=== PATIENT | male | born 1960 | race Caucasian/White ===

== ENCOUNTER 2019-07-08 15:56 | Emergency (ER) | payer OTHER, SELFPAY ==
[2019-07-08 16:04] VITALS: BP 136/90; RESP 18; TEMP 36.9; O2SAT 97
--- NOTE | 2019-07-08 16:09 | ED.URI ---
HPI - URI/Sore Throat General Chief Complaint: Upper Respiratory Infection Stated Complaint: cough/sore throat Time Seen by Provider: 07/08/19 16:23 Source: patient and RN notes reviewed History of Present Illness HPI Narrative: Patient is a 58-year-old male that presents the urgent care with complaints of cough and sore throat for a week and a half. Patient states that the cough is sometimes productive but he is unsure of what color. Patient states he has been using cough and cold medications without relief. States that he does have rhinorrhea at times. Patient's main complaint is fatigue and states that he is not getting much sleep at night. States that his feels that he may be short of breath . However patient denies any shortness of breath. No other acute complaints. No acute distress noted. Patient denies any fever, nausea, vomiting, chest pain. Patient aware of the plan of care. Related Data Home Medications Medication Instructions Recorded Confirmed hydrochlorothiazide 25 mg PO DAILY 07/08/19 07/08/19 lisinopril 20 mg PO DAILY 07/08/19 07/08/19 meloxicam 15 mg PO DAILY 07/08/19 07/08/19 rosuvastatin 20 mg PO DAILY 07/08/19 07/08/19 Allergies Allergy/AdvReac Type Severity Reaction Status Date / Time No Known Allergies Allergy Verified 07/08/19 15:59 Review of Systems Review of Systems: Narrative: CONSTITUTIONAL: Denies fever, chills, or sweats. EYES: Denies visual changes, redness, or discharge. ENT: Reports of intermittent sore throat and rhinorrhea CARDIOVASCULAR: Denies chest pain, palpitations, or edema. RESPIRATORY: Reports of nonproductive cough without dyspnea GASTROINTESTINAL: Denies abdominal pain, nausea, vomiting, or diarrhea. GENITOURINARY: Denies dysuria or hematuria. SKIN: Denies rash or itching. MUSCULOSKELETAL: Denies back pain, joint pain, or myalgia. NEUROLOGIC: Denies headache, numbness, or weakness. All other systems reviewed are negative, except as documented in HPI. [facility] Family History Family History (Updated 12/02/15 @ 23:21 by DOCTOR UNKNOWN) Mother Patient's mother is in good health Sibling Patient's brother is in good health Father Family history of malignant neoplasm, Onset Age: 49 Patient's father is , Onset Age: 49 Social History Social History Smoking status: Never smoker Alcohol intake: current Gender identity (if verbalized by the patient): Male Comments At the time of my signature, I reviewed and agree with the nursing past medical, surgical, social, and family history. There is no relevant family history pertinent to the patient complaint. Exam Narrative: Exam Narrative: GENERAL: This is a well-nourished, well-developed patient, in no apparent distress. HEAD: normocephalic, atraumatic. EYES: PERRL. Sclera clear/white. Vision is grossly intact. EARS: External ears normal, auditory canals clear and without drainage, TMs normal without perforation. Hearing grossly intact. NOSE: External nose normal with no obvious nasal discharge, nares without redness, no rhinorrhea. THROAT: Mucous membranes moist, posterior pharynx clear. Mild postnasal drainage NECK: Neck supple, non-tender without lymphadenopathy CARDIOVASCULAR: Regular rate and rhythm without murmurs, gallops, or rubs. RESPIRATORY: Clear to auscultation. Breath sounds equal bilaterally. No wheezes, rales, or rhonchi. SKIN: warm, intact with no suspicious lesions or rash, good texture and turgor. NEURO: awake, alert, and oriented to person, place and time. There were no obvious focal neurologic abnormalities. EXTREMITIES: No clubbing, cyanosis, or edema. Course Vital Signs Vital signs: Vital Signs Temperature 98.5 F 07/08/19 16:04 Respiratory Rate 18 07/08/19 16:04 Blood Pressure 136/90 07/08/19 16:04 Pulse Oximetry 97 07/08/19 16:04 Temperature 98.5 F 07/08/19 16:04 Respiratory Rate 18 07/08/19 16:04 Blood Pressure 136/90 07/08/19 16:0
== END 2019-07-08 16:30 | disposition home or self-care (01) ==
PROVIDERS: Emergency Provider Nurse Practitioner Family; PCP Internal Medicine
DX: R05 Cough (principal); E78.00 Pure hypercholesterolemia, unspecified; I10 Essential (primary) hypertension
CPT/HCPCS: 99213; G0463

== ENCOUNTER 2021-05-09 13:03 | Outpatient (CLI) | payer OTHER, SELFPAY ==
[2021-05-09 16:25] LABS: SARS-CoV-2 RNA PCR Positive (Negative)
== END 2021-05-09 13:04 | disposition home or self-care (01) ==
PROVIDERS: PCP Internal Medicine; Visit Provider Internal Medicine
DX: U07.1 COVID-19 (principal); R68.89 Other general symptoms and signs
CPT/HCPCS: C9803; U0003; U0005

== ENCOUNTER 2022-02-28 08:59 | Outpatient (CLI) | payer OTHER, SELFPAY ==
[2022-02-28 19:53] LABS: Hemoglobin A1C 6.4 % (<5.7)
[2022-02-28 19:54] LABS: Basophils Absolute Auto 0.1 K/mm3 (0.0-0.1); Basophils Percent Auto 0.7 % (0.2-1.2); Eosinophils Absolute Auto 0.1 K/mm3 (0-0.3); Eosinophils Percent Auto 1.5 % (0-4.4); Hematocrit 45.4 % (42.0-52.0); Hemoglobin 15.8 g/dL (14.0-18.0); Immature Granulocyte Absolute 0.02 K/mm3 (0.00-0.031); Immature Granulocyte Percent A 0.2 % (0-0.5); Lymphocytes Absolute Auto 2.33 K/mm3 (0.9-3.2); Lymphocytes Percent Auto 26.3 % (18.3-44.2); Mean Corpuscular HGB Conc 34.8 g/dl (32-36); Mean Corpuscular Hemoglobin 31.5 pg (26-34); Mean Corpuscular Volume 90.4 fl (80-100); Mean Platelet Volume 10.7 fl (7.4-10.4); Monocytes Absolute Auto 0.7 K/mm3 (0.1-0.6); Monocytes Percent Auto 8.1 % (2.6-8.5); Neutrophils Absolute Auto 5.6 K/mm3 (1.3-6.7); Neutrophils Percent Auto 63.2 % (45.5-73.1); Platelet Count Result 253 k/mm3 (150-375); Red Blood Count 5.02 M/mm3 (4.6-6.20); Red Cell Distribution Width 12.7 % (11.5-14.5); White Blood Count 8.9 K/mm3 (4.5-10.0)
[2022-02-28 20:16] LABS: Alanine Aminotransferase 28 U/L (6-50); Albumin Level 4.5 g/dL (3.5-5.1); Alkaline Phosphatase 107 U/L (38-126); Anion Gap 14 mmol/L (8-16); Aspartate Amino Transferase 24 U/L (17-59); Bilirubin,Total 0.5 mg/dL (0.2-1.3); Blood Urea Nitrogen 16 mg/dL (9-20); Calcium 9.4 mg/dL (8.4-10.2); Carbon Dioxide 24 mmol/L (22-30); Chloride 104 mmol/L (98-107); Cholesterol 205 mg/dL (0-200); Estimated Glomerular Filt Rate > 60; Glucose 136 mg/dL (65-110); HDL Direct 43 mg/dL; Potassium 4.7 mmol/L (3.4-5.0); Sodium 142 mmol/L (137-145); Triglycerides 235 mg/dL (<150)
[2022-02-28 20:29] LABS: LDL Cholesterol Direct 120 mg/dL
[2022-02-28 20:47] LABS: Prostate Specific Antigen 2.2 ng/mL (< OR = 4.0)
== END 2022-02-28 09:00 | disposition home or self-care (01) ==
LOC: ANHGOSHLAB 09:00
PROVIDERS: PCP Family Medicine; Visit Provider Family Medicine
DX: E66.9 Obesity, unspecified (principal); Z13.29 Encounter for screening for other suspected endocrine disorder; Z12.5 Encounter for screening for malignant neoplasm of prostate; R53.83 Other fatigue; Z13.228 Encounter for screening for other metabolic disorders
CPT/HCPCS: 36415; 80053; 80061; 83036; 84153; 84443; 85025; G0103

== ENCOUNTER 2022-10-02 15:22 | Emergency (ER) | payer OTHER, SELFPAY ==
--- NOTE | 2022-10-02 16:34 | PC.NURSE ---
LWBS, not triaged
== END 2022-10-02 16:34 | disposition left against medical advice (07) ==
LOC: ANHED 16:38
PROVIDERS: PCP Family Medicine
DX: Z53.21 Procedure and treatment not carried out due to patient leaving prior to being seen by health care provider (principal)
CPT/HCPCS: 99199

== ENCOUNTER 2022-10-03 13:11 | Emergency (ER) | payer OTHER, SELFPAY ==
--- NOTE | ~2022-10-03 | CT_ITS ---
EXAMINATION: CT abdomen pelvis wo con DATE: 10/03/2022 14:50 INDICATION: Right groin pain TECHNIQUE: Computed tomography (CT) of the abdomen and pelvis was performed without intravenous contr ast. Automated exposure control and iterative reconstruction technique were employed. The dose-length product was 1263.52 mGy-cm. COMPARISON: None FINDINGS: Lung bases are clear. Heart size is normal. No pericardial or pleural effusion. Small sliding-type hi atal hernia with change of prior Lala fundoplication. A few scattered small hepatic cysts the large st measuring 1.2 cm. Gallbladder, spleen, pancreas, left kidney and bilateral adrenal glands are norm al. 2.5 cm right renal cyst. No urolithiasis. Moderate diverticulosis with sigmoid colon predominance and without adjacent inflammatory stranding to suggest diverticulitis. Small bowel and appendix are normal. No inguinal hernia. Bladder is normal. Mild prostatomegaly measuring 5.3 x 4.1 cm. No free in traperitoneal gas or fluid. No pathologically enlarged abdominal or pelvic lymphadenopathy. Severe sp ondylosis at the lumbosacral junction. Bilateral hip osteoarthritis with mild to moderate nonuniform joint space narrowing and with subarticular cystic change along the rims of the bilateral acetabula. There are loose osteochondral bodies at the cotyloid fossa, right greater than left. IMPRESSION: 1. No inguinal hernia. 2. Diverticulosis. Reviewed, dictated and finalized at location B.
[2022-10-03 13:19] VITALS: BP 125/81; PULSE 74; RESP 16; TEMP 36.4; O2SAT 98
--- NOTE | 2022-10-03 15:09 | ED.GENADULT ---
HPI - General Adult General Chief complaint: Urogenital-Male Stated complaint: groin pain Time Seen by Provider: 10/03/22 13:35 Source: patient Mode of arrival: ambulatory Limitations: no limitations History of Present Illness HPI narrative: This is a 61-year-old male who presents to the ED with chief complaint of right groin pain x10 days. Patient states that he has had a sharp stabbing intermittent right groin pain that seems to occur at random. He points to the right upper thigh when I ask him the location. He states that he is an avid golfer and has noticed that sometimes when he takes a golf swing. He also notices it when he is walking. Denies any testicular pain, urinary symptoms, abdominal pain. He has not felt any bulges. Denies any nausea or vomiting. Related Data Home Medications Medication Instructions Recorded Confirmed bupropion HCl 150 mg 24 hr tablet, 150 mg PO DAILY 08/30/22 08/30/22 extended release hydrochlorothiazide 25 mg tablet 25 mg PO DAILY 08/30/22 08/30/22 Allergies Allergy/AdvReac Type Severity Reaction Status Date / Time No Known Allergies Allergy Verified 10/03/22 13:12 Review of Systems Review of Systems: CONSTITUTIONAL: Denies fever, chills, or sweats. EYES: Denies visual changes, redness, or discharge. ENT: Denies rhinorrhea, congestion, sore throat, or otalgia. CARDIOVASCULAR: Denies chest pain, palpitations, or edema. RESPIRATORY: Denies cough or dyspnea. GASTROINTESTINAL: Denies abdominal pain, nausea, vomiting, or diarrhea. GENITOURINARY: See HPI SKIN: Denies rash or itching. MUSCULOSKELETAL: Denies back pain, joint pain, or myalgia. NEUROLOGIC: Denies headache, numbness, dizziness, or weakness. PSYCHIATRIC: Denies anxiety or depression. [facility] Past Medical History Medical History Arthritis of both elbows Family History Family History Mother Patient's mother is in good health Sibling Patient's brother is in good health Father Family history of malignant neoplasm, Onset Age: 49 Patient's father is , Onset Age: 49 Social History Social History Smoking status: Never smoker Alcohol intake: current Substance use: never Substance use type: does not use Lack of Transportation: No Lack of Food: Never True Current Housing: I Have Housing Concerned About Future Housing: No Difficulty Paying Gas/Electric Bills: No Difficulty Paying for Meds: No Currently Unemployed: No Education: Bachelor's Degree Difficulty w/ Childcare or Family Care: No Living arrangements: with family Occupation/Education: occupation 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 HEAD: Normocephalic, atraumatic. EYES: PERRLA and EOMI. ENT: Nares clear, no rhinorrhea or epistaxis. Mucous membranes moist. Oropharynx without tonsillar hypertrophy exudate or other lesions. NECK: Supple. No adenopathy or masses. CHEST: No respiratory distress. Clear to auscultation. No wheezes rales or rhonchi HEART: Regular rate and rhythm. No murmur heard. Normal peripheral pulses. ABDOMEN: Soft, nontender, nondistended, normal active bowel sounds. : No inguinal hernias are palpated. No testicular swelling or tenderness. No overt skin changes throughout the groin. No tenderness throughout the groin. MSK: Normal range of motion. No edema. SKIN: Warm, dry, no rash. NEURO: Alert and oriented x3. No focal deficits. PSYCH: Normal mood and affect. Course Vital Signs Vital signs: Vital Signs Temperature 97.5 F L 10/03/22 13:19 Pul
[2022-10-03 15:23] VITALS: BP 124/80; PULSE 79; RESP 18; TEMP 37.1; O2SAT 100
== END 2022-10-03 15:25 | disposition home or self-care (01) ==
PROVIDERS: Emergency Provider Physician Assistant; PCP Family Medicine
DX: S39.011A Strain of muscle, fascia and tendon of abdomen, initial encounter (principal); M19.022 Primary osteoarthritis, left elbow; M19.021 Primary osteoarthritis, right elbow; X58.XXXA Exposure to other specified factors, initial encounter
CPT/HCPCS: 74176; 99284

== ENCOUNTER 2023-04-18 08:27 | Outpatient (CLI) | payer OTHER, SELFPAY ==
[2023-04-18 19:59] LABS: Basophils Absolute Auto 0.1 K/mm3 (0.0-0.1); Basophils Percent Auto 0.9 % (0.2-1.2); Eosinophils Absolute Auto 0.2 K/mm3 (0-0.3); Eosinophils Percent Auto 2.2 % (0-4.4); Hematocrit 46.1 % (42.0-52.0); Hemoglobin 15.7 g/dL (14.0-18.0); Immature Granulocyte Absolute 0.01 K/mm3 (0.00-0.031); Immature Granulocyte Percent A 0.1 % (0-0.5); Lymphocytes Absolute Auto 2.14 K/mm3 (0.9-3.2); Lymphocytes Percent Auto 28.8 % (18.3-44.2); Mean Corpuscular HGB Conc 34.1 g/dl (32-36); Mean Corpuscular Hemoglobin 31.2 pg (26-34); Mean Corpuscular Volume 91.5 fl (80-100); Mean Platelet Volume 10.5 fl (7.4-10.4); Monocytes Absolute Auto 0.7 K/mm3 (0.1-0.6); Monocytes Percent Auto 9.4 % (2.6-8.5); Neutrophils Absolute Auto 4.3 K/mm3 (1.3-6.7); Neutrophils Percent Auto 58.6 % (45.5-73.1); Platelet Count Result 253 k/mm3 (150-375); Red Blood Count 5.04 M/mm3 (4.6-6.20); Red Cell Distribution Width 12.5 % (11.5-14.5); White Blood Count 7.4 K/mm3 (4.5-10.0)
[2023-04-18 21:34] LABS: Alanine Aminotransferase 31 U/L (6-50); Albumin Level 4.3 g/dL (3.5-5.1); Alkaline Phosphatase 77 U/L (38-126); Anion Gap 4 mmol/L (8-16); Aspartate Amino Transferase 31 U/L (17-59); Bilirubin,Total 0.6 mg/dL (0.2-1.3); Blood Urea Nitrogen 22 mg/dL (9-20); Calcium 9.5 mg/dL (8.4-10.2); Carbon Dioxide 30 mmol/L (22-30); Chloride 103 mmol/L (98-107); Cholesterol 173 mg/dL (0-200); Estimated Glomerular Filt Rate > 60; Glucose 111 mg/dL (65-110); HDL Direct 45 mg/dL; Potassium 5.2 mmol/L (3.4-5.0); Sodium 137 mmol/L (137-145); Triglycerides 154 mg/dL (<150)
[2023-04-18 21:44] LABS: LDL Cholesterol Direct 101 mg/dL
[2023-04-18 22:38] LABS: Folic Acid 19.7 ng/mL (2.76->20)
== END 2023-04-18 08:28 | disposition home or self-care (01) ==
LOC: ANHGOSHLAB 08:28
PROVIDERS: PCP Family Medicine; Visit Provider Family Medicine
DX: E78.5 Hyperlipidemia, unspecified (principal); R53.83 Other fatigue; R73.03 Prediabetes; G62.9 Polyneuropathy, unspecified; M25.50 Pain in unspecified joint; Z12.5 Encounter for screening for malignant neoplasm of prostate; Z13.220 Encounter for screening for lipoid disorders; Z13.228 Encounter for screening for other metabolic disorders; Z13.29 Encounter for screening for other suspected endocrine disorder
CPT/HCPCS: 36415; 80053; 80061; 82607; 82746; 83036; 84153; 84443; 85025; 86038; G0103

== ENCOUNTER 2023-08-23 15:53 | Outpatient (CLI) | payer OTHER, SELFPAY ==
--- NOTE | ~2023-08-23 | CT_ITS ---
EXAMINATION: CT sinus wo con DATE: 08/23/2023 16:15 INDICATION: Chronic ethmoid sinusitis TECHNIQUE: Computed tomography (CT) of the paranasal sinuses was performed without intravenous contra st. The dose-length product was 305.77 mGy-cm. Automated exposure control and iterative reconstructio n technique were employed. COMPARISON: None FINDINGS: There is mucosal thickening of the maxillary sinuses. There are surgical changes bilaterall y in the maxillary antrum. No significant nasal septal deviation. Mastoids are pneumatized. IMPRESSION: 1. Chronic maxillary sinus disease with postsurgical changes. Reviewed, dictated and finalized at location B.
== END 2023-08-23 15:54 | disposition home or self-care (01) ==
LOC: ANHIMG 15:56
PROVIDERS: PCP Family Medicine; Visit Provider Otolaryngology
DX: J32.2 Chronic ethmoidal sinusitis (principal); Q05.9 Spina bifida, unspecified
CPT/HCPCS: 70486

== ENCOUNTER 2023-09-10 15:12 | Outpatient (CLI) | payer OTHER, SELFPAY ==
[2023-09-10 18:48] LABS: Basophils Absolute Auto 0.1 K/mm3 (0.0-0.1); Basophils Percent Auto 0.6 % (0.2-1.2); Eosinophils Absolute Auto 0.1 K/mm3 (0-0.3); Eosinophils Percent Auto 1.5 % (0-4.4); Hematocrit 40.7 % (42.0-52.0); Immature Granulocyte Absolute 0.02 K/mm3 (0.00-0.031); Immature Granulocyte Percent A 0.2 % (0-0.5); Lymphocytes Absolute Auto 1.75 K/mm3 (0.9-3.2); Lymphocytes Percent Auto 21.7 % (18.3-44.2); Mean Corpuscular HGB Conc 34.4 g/dl (32-36); Mean Corpuscular Hemoglobin 31.5 pg (26-34); Mean Corpuscular Volume 91.5 fl (80-100); Mean Platelet Volume 10.7 fl (7.4-10.4); Monocytes Absolute Auto 0.5 K/mm3 (0.1-0.6); Neutrophils Absolute Auto 5.6 K/mm3 (1.3-6.7); Platelet Count Result 248 k/mm3 (150-375); Red Blood Count 4.45 M/mm3 (4.6-6.20); Red Cell Distribution Width 12.4 % (11.5-14.5); White Blood Count 8.1 K/mm3 (4.5-10.0)
[2023-09-10 20:01] LABS: Alanine Aminotransferase 31 U/L (6-50); Albumin Level 4.3 g/dL (3.5-5.1); Alkaline Phosphatase 72 U/L (38-126); Anion Gap 4 mmol/L (4-12); Aspartate Amino Transferase 43 U/L (17-59); Bilirubin,Total 0.4 mg/dL (0.2-1.3); Blood Urea Nitrogen 19 mg/dL (9-20); Calcium 9.3 mg/dL (8.4-10.2); Carbon Dioxide 29 mmol/L (22-30); Chloride 103 mmol/L (98-107); Estimated Glomerular Filt Rate > 60; Glucose 148 mg/dL (65-110); Potassium 4.5 mmol/L (3.4-5.0); Sodium 136 mmol/L (137-145)
== END 2023-09-10 15:13 | disposition home or self-care (01) ==
LOC: ANHGOSHLAB 15:14
PROVIDERS: PCP Family Medicine; Visit Provider Family Medicine
DX: R53.83 Other fatigue (principal); Z13.228 Encounter for screening for other metabolic disorders
CPT/HCPCS: 36415; 80053; 85025

== ENCOUNTER 2024-04-20 08:56 | Outpatient (CLI) | payer OTHER, SELFPAY ==
[2024-04-20 19:19] LABS: Basophils Absolute Auto 0.1 K/mm3 (0.0-0.1); Basophils Percent Auto 0.8 % (0.2-1.2); Eosinophils Absolute Auto 0.2 K/mm3 (0-0.3); Eosinophils Percent Auto 2.6 % (0-4.4); Hematocrit 46.3 % (42.0-52.0); Hemoglobin 15.3 g/dL (14.0-18.0); Immature Granulocyte Absolute 0.02 K/mm3 (0.00-0.031); Immature Granulocyte Percent A 0.3 % (0-0.5); Lymphocytes Absolute Auto 1.81 K/mm3 (0.9-3.2); Lymphocytes Percent Auto 28.1 % (18.3-44.2); Mean Corpuscular Hemoglobin 31.3 pg (26-34); Mean Corpuscular Volume 94.7 fl (80-100); Mean Platelet Volume 10.8 fl (7.4-10.4); Monocytes Absolute Auto 0.7 K/mm3 (0.1-0.6); Monocytes Percent Auto 10.1 % (2.6-8.5); Neutrophils Absolute Auto 3.7 K/mm3 (1.3-6.7); Neutrophils Percent Auto 58.1 % (45.5-73.1); Platelet Count Result 228 k/mm3 (150-375); Red Blood Count 4.89 M/mm3 (4.6-6.20); Red Cell Distribution Width 11.9 % (11.5-14.5); White Blood Count 6.4 K/mm3 (4.5-10.0)
[2024-04-20 19:44] LABS: Alanine Aminotransferase 28 U/L (6-50); Albumin Level 4.3 g/dL (3.5-5.1); Alkaline Phosphatase 73 U/L (38-126); Anion Gap 4 mmol/L (4-12); Aspartate Amino Transferase 37 U/L (17-59); Bilirubin,Total 0.5 mg/dL (0.2-1.3); Blood Urea Nitrogen 21 mg/dL (9-20); Calcium 9.6 mg/dL (8.4-10.2); Carbon Dioxide 30 mmol/L (22-30); Chloride 104 mmol/L (98-107); Estimated Glomerular Filt Rate > 60; Glucose 66 mg/dL (65-110); Sodium 138 mmol/L (137-145)
--- OUTSIDE RECORDS SUMMARY | 2024-04-26 21:31 | XMS_ITS | Clinical Summary ---
Author Organization [facility] [employer] Address [address] [place] [address] Care Team Providers Care Leaf Stripper Name Role Phone Deshawn Talbert MD Primary Care Provider [phone] Source Comments [facility] [employer],non-owned Affiliates and Associated Physician Practices is amultiple site organization consisting of ambulatory clinics and hospital sitesin [place], [place], [place] and [place]. This disclosure is being madepursuant to the Care Everywhere program and may not contain all information available regarding this patient. Last updated 18.[facility] [employer] Allergies No known active allergies Medications * Be aware that medications may not be up to date on this document. Alwaysverify current medications with the patient. Medication Sig Dispensed Refills Start Date End Date Status multivitamin with iron (Ultra Solo) capsule Take 1 (one) capsule by mouth every morning Active meloxicam (Mobic) 15 MG tablet Take 1 (one) tablet by mouth once daily 10/04/2022 Active hydroCHLOROthiazide (Hydrodiuril) 25 MG tablet 12/04/2022 Active lisinopril (Prinivil; Zestril) 20 MG tablet 12/18/2022 Active rosuvastatin (Crestor) 20 MG tablet Take 1 (one) tablet by mouth once daily 05/28/2022 Active buPROPion XL 24hr (Wellbutrin-XL) 150 MG tablet Take 1 (one) tablet by mouth every morning 10/07/2022 Active omeprazole (PriLOSEC) 40 MG capsuleIndications:D ysphagia, unspecified type TAKE 1 CAPSULE BY MOUTH TWICE DAILY 180 capsule 02/01/2023 Active Social History Tobacco Use Types Packs/Day Years Used Date Smoking Tobacco: Never Assessed Sex and Gender Information Value Date Recorded Sex Assigned at Not on file Gender Identity Not on file Sexual Orientation Not on file Last Filed Vital Signs Vital Sign Reading Time Taken Comments Blood Pressure 120/80 12/20/2022 8:46 AM CDT Pulse - - Temperature - - Respiratory Rate - - Oxygen Saturation - - Inhaled Oxygen Concentration - - Weight 114.3 kg (252 lb) 12/20/2022 8:46 AM CDT Height 193 cm (6' 4 ) 12/20/2022 8:46 AM CDT Body Mass Index 30.67 12/20/2022 8:46 AM CDT Plan of Treatment Health Maintenance Due Date Last Done Comments COLOGUARD (AGES 45-75) - COL ON CA SCREENING 1960 COLON MONITORING 1960 COLONOSCOPY - COLON CA SCREENING 1960 CT COLONOGRAPHY - COLON CA SCREENING 1960 Colorectal Cancer Screening 1960 FIT - COLON CA SCREENING 1960 FLEX SIG - COLON CA SCREENING 1960 HIV SCREENING 12/08/1975 HEPATITIS C SCREENING 12/03/1978 DTAP/TDAP/TD VACCINES (1 - Tdap) 12/08/1979 ZOSTER VACCINE (1 of 2) 2010 SCREENING FOR DIABETES 12/20/2022 DEPRESSION SCREENING 05/06/2023 COVID-19 VACCINE ( - 2023-2 5 season) 2024 INFLUENZA VACCINE (#1) 2024 , 07/12/2018 Respiratory Syncytial Virus (RSV) Vaccine Pt: or over 60 yrs (1 - 1-dose 75+ series) 12/08/2035 HEPATITIS B VACCINE Aged Out No longe r eligible based on patient's age to complete this topic HIB VACCINE Aged Out No longer eligi ble based on patient's age to complete this topic HPV VACCINE Aged Out No longer eligi ble based on patient's age to complete this topic MENINGOCOCCAL VACCINE Aged Out No jessie nika eligible based on patient's age to complete this topic PNEUMOCOCCAL VACCINE Aged Out No long er eligible based on patient's age to complete this topic Care Teams Leaf Stripper Relationship Specialty Start Date End Date Deshawn Talbert MD [address] [place] [address] PCP - General 12/31/18
--- OUTSIDE RECORDS SUMMARY | 2024-04-26 21:31 | XMS_ITS ---
Author Organization Unknown Medications Medication Instructions Effective Dates (start - stop) Status metformin hydrochloride 500 MG Oral Tablet - Completed meloxicam 15 MG Oral Tablet [id number] :00:00Z - Completed - - Compl eted amoxicillin 875 MG Oral Tablet 2023-10-01 T00:00:00Z - Completed prednisone 20 MG Oral Tablet [id number] 0:00:00Z - Completed meloxicam 15 MG Oral Tablet [id number] :00:00Z - Completed meloxicam 15 MG Oral Tablet [id number] :00:00Z - Completed azelastine hydrochloride 0.1 37 MG/ACTUAT Metered Dose Nasal [place] - Co mpleted hydrochlorothiazide 25 MG Or al Tablet - Completed metformin hydrochloride 500 MG Oral Tablet - Completed rosuvastatin calcium 20 MG O ral Tablet - Completed lisinopril 20 MG Oral Tablet [id number] 0:00:00Z - Completed meloxicam 15 MG Oral Tablet [id number] :00:00Z - Completed 24 HR bupropion hydrochlorid e 300 MG Extended Release Oral Tablet - Complete d rosuvastatin calcium 20 MG O ral Tablet - Completed omeprazole 40 MG Delayed Rel ease Oral Capsule - Completed rosuvastatin calcium 20 MG O ral Tablet - Completed metformin hydrochloride 500 MG Oral Tablet - Completed lisinopril 20 MG Oral Tablet [id number] 0:00:00Z - Completed omeprazole 40 MG Delayed Rel ease Oral Capsule - Completed hydrochlorothiazide 25 MG Or al Tablet - Completed 24 HR bupropion hydrochlorid e 300 MG Extended Release Oral Tablet - Complete d azelastine hydrochloride 0.1 37 MG/ACTUAT Metered Dose Nasal [place] - Co mpleted omeprazole 40 MG Delayed Rel ease Oral Capsule - Completed hydrochlorothiazide 25 MG Or al Tablet - Completed 24 HR bupropion hydrochlorid e 300 MG Extended Release Oral Tablet - Complete d Patient Care team information Name Category Status Period Participants - - Proposed period not known -
--- OUTSIDE RECORDS SUMMARY | 2024-04-26 21:32 | XMS_ITS | Encounter Summary ---
Author Organization [facility] Address [address] [place] [address] Care Team Providers Care Medical Sociologist Name Role Phone Deshawn Talbert MD Primary Care Provider [phone] Reason for Visit * Reason Comments Refill Request Encounter Details Date Type Department Care Team (Late st Contact Info) Description 12/28/2022 Refill [facility] - [address] [place] [address] [place] [address] [place] [address] Refill Request Social History Tobacco Use Types Packs/Day Years Used Date Smoking Tobacco: Never Assessed Sex and Gender Information Value Date Recorded Sex Assigned at Not on file Gender Identity Not on file Sexual Orientation Not on file documented as of this encounter Plan of Treatment Not on file documented as of this encounter Visit Diagnoses Diagnosis Dysphagia, unspecified type- Primary documented in this encounter Care Teams Medical Sociologist Relationship Specialty Start Date End Date Deshawn Talbert MD [address] [place] [address] PCP - General 12/31/18 documented as of this encounter
--- OUTSIDE RECORDS SUMMARY | 2024-04-26 21:32 | XMS_ITS | Encounter Summary ---
Author Organization [facility] Address [address] [place] [address] Care Team Providers Care Propeller Engineer Name Role Phone Deshawn Talbert MD Primary Care Provider [phone] Reason for Visit * Reason Comments Consultation Encounter Details Date Type Department Care Team (Late st Contact Info) Description 12/20/2022 8:40 AM CDT Office Visit [facility] - [address] [place] [address] [place] [address] [place] [address] Dysphagia, unspecified type (Primary Dx) Social History Tobacco Use Types Packs/Day Years Used Date Smoking Tobacco: Never Assessed Sex and Gender Information Value Date Recorded Sex Assigned at Not on file Gender Identity Not on file Sexual Orientation Not on file documented as of this encounter Last Filed Vital Signs Vital Sign Reading Time Taken Comments Blood Pressure 120/80 12/20/2022 8:46 AM CDT Pulse - - Temperature - - Respiratory Rate - - Oxygen Saturation - - Inhaled Oxygen Concentration - - Weight 114.3 kg (252 lb) 12/20/2022 8:46 AM CDT Height 193 cm (6' 4 ) 12/20/2022 8:46 AM CDT Body Mass Index 30.67 12/20/2022 8:46 AM CDT documented in this encounter Consult Notes * Carlos Root MD - 12/20/2022 8:56 AM CDT [facility]STRO[facility]OLOGY CL[facility]IC NEW PATIENT Name: Sreedhar Raymundo PCP: Deshawn Talbert MD Reason For Referral/Chief Complaint: Dysphagia HPI: Sreedhar Raymundo is a 62 year old male with a PMH of a lissette fundoplication who presents with dysphagia. He has been having dysphagia intermittently for 10 years but it is currently worse. It is happening3-4 times/week. This happens when he first starts eating. This happens more with starches such as rice/potatoes. He reports he had a steak 3 nights ago and it went down ok as long as he eats slow. he reports he has lost 20lbs in the past 2 months on purpose. He has a history of ETOH abuse but now drinks beer only on the golf [place] which is weeks. About a 6 pack each month. Never smoker. No family history of GI malignancy. ROS: Review of Systems Constitutional: Negative for chills, fever and weight loss. Respiratory: Negative for cough, hemoptysis and shortness of breath. Cardiovascular: Negative for chest pain, palpitations, orthopnea and leg swelling. Gastrointestinal: Negative for abdominal pain, blood in stool, constipation, diarrhea, heartburn, melena, nausea and vomiting. Genitourinary: Negative for dysuria and hematuria. Musculoskeletal: Negative for neck pain. Skin: Negative for rash. Neurological: Negative for tingling, speech change and focal weakness. Psychiatric/Behavioral: Negative for depression, substance abuse and suicidal ideas. Medical History: I have reviewed the patient's medical history in detail and updated the computerized patient record. There is no problem list on file for this patient. No past medical history on file. No past surgical history on file. Allergies: No Known Allergies Current meds: Updated in epic chart, and personally reviewed by me Current Outpatient Medications: ??? buPROPion XL 24hr (Wellbutrin-XL) 150 MG tablet, Take 1 (one) tablet by mouth every morning, Disp: , Rfl: ??? hydroCHLOROthiazide (Hydrodiuril) 25 MG tablet, , Disp: , Rfl: ??? lisinopril (Prinivil; Zestril) 20 MG tablet, , Disp: , Rfl: ??? meloxicam (Mobic) 15 MG tablet, Take 1 (one) tablet by mouth once daily, Disp: , Rfl: ??? multivitamin with iron (Ultra Solo) capsule, Take 1 (one) capsule by mouth every morning, Disp:, Rfl: ??? rosuvastatin (Crestor) 20 MG tablet, Take 1 (one) tablet by mouth once daily, Disp: , Rfl: Social History: Social History Socioeconomic History ??? Marital status: Spouse name: Not on file ??? Number of children: Not on file ??? Years of education: Not on file ??? Highest education level: Not on file Occupational History ??? Not on file Tobacco Use ??? Smoking status: Not on file ??? Smokeless tobacco: Not on file Substance and Sexual Activity ??? Alcohol use: Not on file ??? Drug use: Not on file ??? Sexual activity: Not on file Other Topics Concern ??? Not on file Social History Narrative ??? Not on file Social Determinants of Health Financial Resource Strain: Not on file Food Insecurity: Not on file Transportation Needs: Not on file Stress: Not on file Housing Stability: Not on file Family Hx: Family Hx of GI Malignancy: None Family Hx of Liver Disease: None No family history on file. Physical Exam: @[email or web address]@ Body mass index is 30.67 kg/m??. Physical Exam Constitutional: General: He is not in acute distress. HENT: Head: Normocephalic and atraumatic. Eyes: General: No scleral icterus. Cardiovascular: Rate and Rhythm: Normal rate. Pulmonary: Effort: Pulmonary effort is normal. No respiratory distress. Breath sounds: Normal breath sounds. Abdominal: General: Abdomen is flat. Bowel sounds are normal. There is no distension. Palpations: Abdomen is soft. There is no mass. Tenderness: There is no abdominal tenderness. There is no guarding or rebound. Hernia: No hernia is present. Musculoskeletal: General: No deformity. Normal range of motion. Cervical back: Normal range of motion and neck supple. Skin: General: Skin is warm and dry. Findings: No rash. Neurological: Mental Status: He is alert and oriented to person, place, and time. Psychiatric: Mood and Affect: Affect normal. Lab Data: No results for input(s): WBC, HGB, HCT, PLTCOUNT in the last 55625 hours. No results for input(s): MCV in the last 58002 hours. No results for input(s): SODIUM, POTASSIUM, CHLORIDE, CO2, BUN, CREATININE, GLUCOSE, CALCIUM, ALBUMIN in the last 33411 hours. No results for input(s): ALKPHOS, ALT, AST, TBIL, TPROT in the last 26376 hours. No results for input(s): INR in the last 67748 hours. Imaging: None Previous Endoscopy: Colonoscopy 5 years ago normal per patient at [facility]. Told to return in 10 years per patient Impression/Plan: Sreedhar Raymundo is a 62 year old male here for evaluation 1. Dysphagia. DDX: Related to fundoplication, Shatzki ring, Malignant lesion Recommendations: - Schedule EGD to evaluate further. patient would like the [facility] Carlos Root M.D. Gastroenterology Interventional Endoscopy [facility] Office: [phone] documented in this encounter Plan of Treatment Not on file documented as of this encounter Visit Diagnoses Diagnosis Dysphagia, unspecified type- Primary documented in this encounter Care Teams Propeller Engineer Relationship Specialty Start Date End Date Deshawn Talbert MD [address] [place] [address] PCP - General 12/31/18 documented as of this encounter
--- OUTSIDE RECORDS SUMMARY | 2024-04-26 21:32 | XMS_ITS | Referral Summary ---
Author Organization [facility] Address [address] [place] [address] Care Team Providers Care Social Psychologist Name Role Phone Deshawn Talbert MD Primary Care Provider Source Comments [facility],non-owned Affiliates and Associated Physician Practices is amultiple site organization consisting of ambulatory clinics and hospital sitesin [place], [place], [place] and [place]. This disclosure is being madepursuant to the Care Everywhere program and may not contain all information available regarding this patient. Last updated 18.[facility] Allergies No known active allergies Medications * [...] 12/20/2022 8:46 AM CDT Plan of Treatment Not on file Care Teams Social Psychologist Relationship Specialty Start Date End Date Deshawn Talbert MD [address] [place] [id number] PCP - General 12/31/18
--- OUTSIDE RECORDS SUMMARY | 2024-04-26 21:32 | XMS_ITS | Encounter Summary ---
Author Organization [facility] Address [address] [place] [address] Care Team Providers Care Eligibility Examiner Name Role Phone Deshawn Talbert MD Primary Care Provider Encounter Details Date Type Department Care Team (Latest Contact Info) Description 12/20/2022 Travel Social History Tobacco Use Types Packs/Day Years Used Date Smoking Tobacco: Never Assessed Sex and Gender Information Value Date Recorded Sex Assigned at Not on file Gender Identity Not on file Sexual Orientation Not on file documented as of this encounter Plan of Treatment Not on file documented as of this encounter Visit Diagnoses Not on filedocumented in this encounter Care Teams Eligibility Examiner Relationship Specialty Start Date End Date Deshawn Talbert MD [address] [place] [phone] PCP - General 12/31/18 documented as of this encounter
--- OUTSIDE RECORDS SUMMARY | 2024-04-26 21:32 | XMS_ITS | Encounter Summary ---
Author Organization [facility] Address [address] [place] [address] Care Team Providers Care Final Inspector Name Role Phone Deshawn Talbert MD Primary Care Provider [phone] Reason for Visit * Reason Onset Date Comments MEDICATION REFILL 02/01/2023 Encounter Details Date Type Department Care Team (Late st Contact Info) Description 02/01/2023 Refill [facility] - [address] [place] [address] [place] [address] [place] [address] MEDICATION REFILL Social History Tobacco Use Types Packs/Day Years Used Date Smoking Tobacco: Never Assessed Sex and Gender Information Value Date Recorded Sex Assigned at Not on file Gender Identity Not on file Sexual Orientation Not on file documented as of this encounter Miscellaneous Notes * Telephone Encounter - Adrienne Moreira MA - 02/01/2023 2:54 PM CDT Insurance will only cover a 90 day supply of omeprazole. Will send in Rx for 90 days only. documented in this encounter Plan of Treatment Not on file documented as of this encounter Visit Diagnoses Diagnosis Dysphagia, unspecified type documented in this encounter Care Teams Final Inspector Relationship Specialty Start Date End Date Deshawn Talbert MD [address] [place] [address] PCP - General 12/31/18 documented as of this encounter
--- OUTSIDE RECORDS SUMMARY | 2024-04-26 21:32 | XMS_ITS | Patient Health Summary ---
Author Organization [facility] Address [address] [place] [address] Care Team Providers Care Hotel Engineer Name Role Phone Deshawn Talbert MD Primary Care Provider [phone] Note from [facility],non-owned Affiliates and Associated Physician Practices is amultiple site organization consisting of ambulatory clinics and hospital sitesin [place], [place], [place] and [place]. This disclosure is being madepursuant to the Care Everywhere program and may not contain all information available regarding this patient. Last updated 18.[facility] Allergies No known active allergies Medications * Be aware that medications may not be up to date on this document. Alwaysverify current medications with the patient. * multivitamin with iron (Ultra Solo) capsule Take 1 (one) capsule by mouth every morning * meloxicam (Mobic) 15 MG tablet(Started 10/04/2022) Take 1 (one) tablet by mouth once daily * hydroCHLOROthiazide (Hydrodiuril) 25 MG tablet(Started 12/04/2022) * lisinopril (Prinivil; Zestril) 20 MG tablet(Started 12/18/2022) * rosuvastatin (Crestor) 20 MG tablet(Started 05/28/2022) Take 1 (one) tablet by mouth once daily * buPROPion XL 24hr (Wellbutrin-XL) 150 MG tablet(Started 10/07/2022) Take 1 (one) tablet by mouth every morning * omeprazole (PriLOSEC) 40 MG capsule(Started 02/01/2023) TAKE 1 CAPSULE BY MOUTH TWICE DAILY Social History Tobacco Use Types Packs/Day Years [...] Mass Index 30.67 12/20/2022 8:46 AM CDT Care Teams Hotel Engineer Relationship Specialty Start Date End Date Deshawn Talbert MD [address] [place] [phone] PCP - General 12/31/18
--- OUTSIDE RECORDS SUMMARY | 2024-04-26 21:33 | XMS_ITS | Encounter Summary ---
Author Organization [facility] Address [address] [place] [address]. [place], [place] [id number] [place] [address] Care Team Providers Care Fire Alarm Installer Name Role Phone Arabella Patterson Primary Care Provider [phone] Reason for Visit * Reason Comments Prediabetes Hypertension Hyperlipidemia Encounter Details Date Type Department Care Team (Latest Contact Info) Description 04/17/2024 10:40 AM [employer] Office Visit [facility] [place] [id number] [place] [address] Arabella Patterson APNP [address] [place] [address] Prediabetes; Hypertension; Hyperlipidemia Social History Tobacco Use Types Packs/Day Years Used Date Smoking Tobacco: Never Passive Smoke Exposure: Never Smokeless Tobacco: Never Tobacco Cessation:Counseling Given: No Alcohol Use Standard Drinks/Week Comments Yes 3.3 (1 standard drin k = 0.6 oz pure alcohol) Pt is a recovering alcoholic x 31 yrs. He has 1-2 beers/wk only while golfing. PHQ-2 Answer Date Recorded Patient Health Questionnaire-2 Score 4 04/17/2024 Sex and Gender Information Value Date Recorded Sex Assigned at Not on file Legal Sex Male 5:45 PM CDT Gender Identity Not on file Sexual Orientation Not on file documented as of this encounter Last Filed Vital Signs Vital Sign Reading Time Taken Comments Blood Pressure 112/78 04/17/2024 11:07 AM [employer] Pulse 70 04/17/2024 11:07 AM [employer] Temperature 36.6 ??C (97.9 ??F) 04/17/2024 1 1:07 AM [employer] Respiratory Rate 16 04/17/2024 11:0 7 AM [employer] Oxygen Saturation 98% 04/17/2024 11: 07 AM [employer] Inhaled Oxygen Concentration - - Weight 110.9 kg (244 lb 9.6 oz) 024 11:07 AM [employer] Height 193 cm (6' 4 ) 04/17/2024 11:07 AM [employer] Body Mass Index 29.77 04/17/2024 11:07 AM [employer] documented in this encounter Patient Instructions * Patient Instructions* LILIANA Burr - 04/17/2024 10:40 AM [employer] Stop the metformin. Take 1/2 tablet of the hydrochlorothiazide for 12.5 mg once daily. I[facility] [employer] documented in this encounter Progress Notes * LILIANA Burr - 04/17/2024 10:40 AM CST Images from the original note were not included. [facility] OFFICE VISIT Reason for Visit: Prediabetes, Hypertension, and Hyperlipidemia History of Present Illness: 63-year-old male presents today to establish care as a new patient. He is , has grown children. 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 He is not a smoker, denies any illicit drug use and is a recovering alcoholic--currently has 1-2 drinks per week. Chronic health conditions: HTN - BP controlled. Ally meds well Depression - currently on sertraline and bupropion. Seeing a psychiatrist. Feels since adding sertraline, mood is better. He has been seeing a psychiatrist for 2 years---since 20 year old son suddenly HLD - currently on rosuvastatin--ally well, no bother some side effects. Prediabetes - hgb A1c today is 5.5. He has only been taking his metformin once daily and would liketo stop if he could. I feel this is reasonable. Hiatal hernia/esophageal strictures- -has seen GI, has had esophagus stretched . Does not currently take any meds for this. Last EGD was 2 years ago. He has longstanding issues with left hip pain. He has seen his previous PCP and had xrays--feels now--symptoms are manageable. He has lost 35 lbs in the last year---would like to see about stopping some of his meds if possible. He has seen dermatology--had some areas removed--15 different areas removed---was told per derm allwere non cancerous. Immunizations: due for COVID, RSV, Tdap, RSV, will get COVID and FLU today. Labs: last set of labs was done about year ago. Will be due now. Colon cancer screening: last colonoscopy done 2 years ago---was told 10 year follow up. ROS: Review of Systems Constitutional: Negative for chills and fever. Eyes: Negative for blurred vision and double vision. Respiratory: Negative for cough and shortness of breath. Cardiovascular: Negative for chest pain and palpitations. Gastrointestinal: Negative for abdominal pain, diarrhea, nausea and vomiting. Musculoskeletal: Positive for joint pain. Neurological: Negative for dizziness and headaches. Psychiatric/Behavioral: Positive for depression. Negative for suicidal ideas. The patient is not nervous/anxious. Medications: Current Outpatient Medications: acetaminophen CR (TYLENOL) 650 MG Tab CR 8 hr tablet, Take 2 tablets (1,300 mg total) by mouth 2 (two) times daily., Disp: , Rfl: buPROPion XL (WELLBUTRIN XL) 300 MG 24 hr tablet, Take 1 tablet (300 mg total) by mouth daily., Disp: , Rfl: hydroCHLOROthiazide (HYDRODIURIL) 25 MG tablet, Take 1 tablet (25 mg total) by mouth daily., Disp: , Rfl: lisinopril (PRINIVIL) 20 MG tablet, , Disp: , Rfl: meloxicam (MOBIC) 15 MG tablet, Take 1 tablet (15 mg total) by mouth daily., Disp: , Rfl: metFORMIN (GLUCOPHAGE) 500 MG tablet, TAKE 1 TABLET BY MOUTH 2 TIMES PER DAY WITH MEALS, Disp: , Rfl: rosuvastatin (CRESTOR) 20 MG tablet, Take 1 tablet (20 mg total) by mouth daily., Disp: , Rfl: sertraline (ZOLOFT) 100 MG tablet, Take 1 tablet (100 mg total) by mouth daily., Disp: , Rfl: Multiple Vitamin (MULTIVITAMIN) capsule, Take 1 capsule by mouth daily., Disp: , Rfl: Allergies: Review of patient's allergies indicates: No Known Allergies Medical History: Past Medical History: Diagnosis Date Depression Hyperlipidemia Hypertension Prediabetes Surgical History: Past Surgical History: Procedure Laterality Date ACHILLES TENDON REPAIR Left 1996 ELBOW SURGERY Right 2020 FUNDOPLICATION-LAUREN 2002 HC LAMINECTOMY OR DISKECTOMY 2004 lumbar-3 vertebrae. Pt unsure which. TOTAL KNEE ARTHROPLASTY Right 2019 Social History: Social History Socioeconomic History Marital status: Tobacco Use Smoking status: Never Passive exposure: Never Smokeless tobacco: Never Vaping Use Vaping status: Never Used Substance and Sexual Activity Alcohol use: Yes Alcohol/week: 3.3 standard drinks of alcohol Types: 2 Cans of beer per week Comment: Pt is a recovering alcoholic x 31 yrs. He has 1-2 beers/wk only while golfing. Drug use: Never Family History: Family History Problem Relation Name Age of Onset Alcohol Abuse Father Brain cancer Father Cancer Brother PE: Physical Exam Vitals and nursing note reviewed. HENT: Head: Normocephalic and atraumatic. Eyes: General: No scleral icterus. Conjunctiva/sclera: Conjunctivae normal. Neck: Trachea: No tracheal deviation. Cardiovascular: Rate and Rhythm: Normal rate and regular rhythm. Heart sounds: Normal heart sounds. No murmur heard. Pulmonary: Effort: Pulmonary effort is normal. No respiratory distress. Breath sounds: Normal breath sounds. No stridor. No wheezing. Abdominal: General: Bowel sounds are normal. There is no distension. Palpations: Abdomen is soft. There is no mass. Tenderness: There is no abdominal tenderness. There is no guarding or rebound. Musculoskeletal: General: No deformity. Normal range of motion. Cervical back: Normal range of motion and neck supple. Skin: General: Skin is warm and dry. Findings: No erythema. Neurological: Mental Status: He is alert and oriented to person, place, and time. Gait: Gait is intact. Psychiatric: Mood and Affect: Mood and affect normal. Filed Vitals: 04/17/24 1107 BP: 112/78 Pulse: 70 Resp: 16 Temp: 97.9 ??F (36.6 ??C) TempSrc: Skin SpO2: 98% Weight: 110.9 kg (244 lb 9.6 oz) Height: 1.93 m (6' 4 ) Labs: Labs Reviewed Diagnoses/Impression: 1. Primary hypertension Chronic CBC W/DIFF AUTOMATED URIC ACID BLOOD COMPREHENSIVE METABOLIC PANEL URINALYSIS 2. Need for COVID-19 vaccine PFIZER COVID-19 (12+) MRNA, LNP-S, PF, LYLE-SUCROSE 30 MCG/0.3 ML 3. Need for immunization against influenza [44315] Flu Vaccine, 0.5 mL, 6+ Months (Single Dose Syringe Fluarix, Fluzone, Flulaval, or Afluria) 4. Prediabetes HEMOGLOBIN, GLYCOSYLATED COLLECT.CAPILLARY (FNGR,HEEL,EAR) CBC W/DIFF AUTOMATED COMPREHENSIVE METABOLIC PANEL URINALYSIS 5. Mixed hyperlipidemia Chronic CBC W/DIFF AUTOMATED LIPID PANEL TSH W/REFLEX URIC ACID BLOOD 6. Moderate episode of recurrent major depressive disorder ([facility]) Chronic CBC W/DIFF AUTOMATED Recommendations and Plan: 1. Need for COVID-19 vaccine - PFIZER COVID-19 (12+) MRNA, LNP-S, PF, LYLE-SUCROSE 30 MCG/0.3 ML 2. Need for immunization against influenza - [25716] Flu Vaccine, 0.5 mL, 6+ Months (Single Dose Syringe Fluarix, Fluzone, Flulaval, or Afluria) 3. Prediabetes - HEMOGLOBIN, GLYCOSYLATED - COLLECT.CAPILLARY (FNGR,HEEL,EAR) - CBC W/DIFF AUTOMATED; Future - COMPREHENSIVE METABOLIC PANEL; Future - URINALYSIS; Future - CBC W/DIFF AUTOMATED - COMPREHENSIVE METABOLIC PANEL - URINALYSIS Hemoglobin A1c 5.5 today. We discussed this result. Patient wishes to stop the metformin for now. Will recheck a hemoglobin A1c in about 6 months 4. Primary hypertension - CBC W/DIFF AUTOMATED; Future - URIC ACID BLOOD; Future - COMPREHENSIVE METABOLIC PANEL; Future - URINALYSIS; Future - CBC W/DIFF AUTOMATED - URIC ACID BLOOD - COMPREHENSIVE METABOLIC PANEL - URINALYSIS Will have patient to take 1/2 tablet of the hydrochlorothiazide for 12 and half milligrams once daily. He will continue the lisinopril as ordered He will monitor his blood pressure at home and let me know if results are consistently greater esty167/80 5. Mixed hyperlipidemia - CBC W/DIFF AUTOMATED; Future - LIPID PANEL; Future - TSH W/REFLEX; Future - URIC ACID BLOOD; Future - CBC W/DIFF AUTOMATED - LIPID PANEL - TSH W/REFLEX - URIC ACID BLOOD Continue meds as ordered 6. Moderate episode of recurrent major depressive disorder ([facility]) - CBC W/DIFF AUTOMATED; Future - CBC W/DIFF AUTOMATED Condition is stable. He will continue meds and continue psychiatry follow-up Orders Placed This Encounter COLLECT.CAPILLARY (FNGR,HEEL,EAR) HEMOGLOBIN, GLYCOSYLATED CBC W/DIFF AUTOMATED LIPID PANEL TSH W/REFLEX URIC ACID BLOOD COMPREHENSIVE METABOLIC PANEL URINALYSIS [58547] Flu Vaccine, 0.5 mL, 6+ Months (Single Dose Syringe Fluarix, Fluzone, Flulaval, or Afluria) PFIZER COVID-19 (12+) MRNA, LNP-S, PF, LYLE-SUCROSE 30 MCG/0.3 ML acetaminophen CR (TYLENOL) 650 MG Tab CR 8 hr tablet buPROPion XL (WELLBUTRIN XL) 300 MG 24 hr tablet hydroCHLOROthiazide (HYDRODIURIL) 25 MG tablet lisinopril (PRINIVIL) 20 MG tablet meloxicam (MOBIC) 15 MG tablet metFORMIN (GLUCOPHAGE) 500 MG tablet Multiple Vitamin (MULTIVITAMIN) capsule rosuvastatin (CRESTOR) 20 MG tablet sertraline (ZOLOFT) 100 MG tablet Cannot display discharge medications since this is not an admission. PCP: LILIANA Burr 04/17/2024 Cosigned by Edis Dudley MD at 04/20/2024 9:16 AM CHEMI[employer]NS[employer]IP I[employer] documented in this encounter Plan of Treatment Scheduled Orders Name Type Priority Associated Diagnoses Orde r Schedule CBC W/DIFF AUTOMATED Lab Routine Prediabetes Primary hypertension Mixed hyperlipidemia Moderate episode of recurrent major depressive disorder ([facility]) Expected: 04/17/2024, Expires: 04/17/2025 LIPID PANEL Lab Routine Mixed hyperlipidemia Expected: 04/17/2024, Expires: 04/17/2025 TSH W/REFLEX Lab Routine Mixed hyperlipidemia Expected: 04/17/2024, Expires: 04/17/2025 URIC ACID BLOOD Lab Routine Primary hypertension Mixed hyperlipidemia Expected: 04/17/2024, Expires: 04/17/2025 COMPREHENSIVE METABOLIC PANEL Lab Routine Prediabetes Primary hypertension Expected: 04/17/2024, Expires: 04/17/2025 URINALYSIS Lab Routine Prediabetes Primary hypertension Expected: 04/17/2024, Expires: 04/17/2025 documented as of this encounter Procedures Procedure Name Priority Date/Time Associated Diagnosis Comments COLLECT.CAPILLARY (FNGR,HEEL,EAR) Routine 04/17/2024 11:10 AM CHEMI[employer]NSHIP Prediabetes HEMOGLOBIN, GLYCOSYLATED Routine 04/17/2024 Prediabetes documented in this encounter Results * HEMOGLOBIN, GLYCOSYLATED (04/17/2024) HGB A1C 5.5 % [facility] 04/17/2024 us Arabella [facility] Final Resul t [address] [address], documented in this encounter Visit Diagnoses Diagnosis Primary hypertension- Primary Unspecified essential hypertension Need for COVID-19 vaccine Need for immunization against influenza Need for prophylactic vaccination and inoculation against influenza Prediabetes Other abnormal glucose Mixed hyperlipidemia Moderate episode of recurrent major depressive disorder (CMS/HCC HHS/HCC) documented in this encounter Additional Health Concerns Assessment Noted Time PHQ-9 Depression Total Score: 4 04/17/20 24 12:09 PM [employer] documented as of this encounter Care Teams Fire Alarm Installer Relationship Specialty Start Date End Date Arabella Patterson APNP [address] [place] [id number] PCP - General NURSE PRACTITIONER 04/17/24 documented as of this encounter
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
--- OUTSIDE RECORDS SUMMARY | 2024-04-26 21:33 | XMS_ITS | Encounter Summary ---
Author Organization [facility] Address [address] [place] [address] Care Team Providers Care Retail Service Specialist Name Role Phone aGl De Jesus Primary Care Provider [phone] Reason for Visit * Reason Onset Date Comments Bone scan auth 12/28/2022 Encounter Details Date Type Department Care Team (Late st Contact Info) Description 12/28/2022 Telephone [facility] Orthopedics and Sports Medicine [address] [place] [address] Regino Roberts MD [address] [facility] [address] [place], [place] [id number] Bone scan auth Social History Tobacco Use Types Packs/Day Years [...] on file Legal Sex Male 7:48 AM STEEL POST INSTALLER Gender Identity Male 04/10/2021 6:39 AM STEEL POST INSTALLER Sexual Orientation Straight 03/15/2021 5: 03 PM STEEL POST INSTALLER 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 We could try and send in a course of physical therapy. I called patient and relayed message he will call if he wants to try PT. L POST INSTALLER * Telephone Encounter - Mona Peraza MA - 03/26/2023 3:43 PM CST I have printed this and set on his desk. L POST INSTALLER * Telephone Encounter - Ann Blandon - 03/26/2023 3:00 PM CST Patient called and stated he is needing his CT Scan results. Has been waiting for some time. L POST INSTALLER * Telephone Encounter - Yasmin Gross - 03/13/2023 12:19 PM CST Patient was called and given message below. Patient understood and agreed L POST INSTALLER * Telephone Encounter - Kaylah Gayle PA - 03/13/2023 12:17 PM STEEL POST INSTALLER Please inform the patient that Dr. Roberts is out of town this week but will reach out to him next week. L POST INSTALLER * Telephone Encounter - Yasmin Gross - 03/13/2023 11:59 AM CST Patient called and wanted his bone Scan results reviewed. Please review and advise patient L POST INSTALLER * Telephone Encounter - Chanda Mueller MA - 12/28/2022 1:10 PM CDT I called patient and notified him that bone scan is approved and provided number to scheduling. documented in this encounter Plan of Treatment Not on file documented as of this encounter Visit Diagnoses Not on filedocumented in this encounter Care Teams Retail Service Specialist Relationship Specialty Start Date End Date Gal De Jesus DO [address] [place] [id number] PCP - General Family Medicine 12/28/22 documented as of this encounter
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
--- OUTSIDE RECORDS SUMMARY | 2024-04-26 21:33 | XMS_ITS | Encounter Summary ---
Author Organization [facility] Healthcare Address [address] [place] [address] Care Team Providers Care Filterer Name Role Phone Gal De Jesus DO Primary Care Provider [phone] Reason for Visit * Diagnostic Imaging (Routine) - Closed Specialty Diagnoses / Procedures Referred By Contac t Referred To Contact Diagnoses Right knee pain, unspecified chronicity Procedures NM Bone Imaging 3 Phase Regino Roberts MD [address] [facility] [address] [place] [address] Phone: tel: [address] [phone] Referral ID Status Reason Start Date Expiration Date Visits Re quested Visits Authorized [id number] Closed 12/27/2022 01/26/2024 2 2 Encounter Details Date Type Department Care Team (Latest Contact Info) Description 01/25/2023 8:10 AM CDT - 01/25/2023 11:59 PM CDT Hospital Encounter [facility] [address] [place] [address] Discharge Disposition: Discharge to home or self care Social History Tobacco Use Types Packs/Day Years [...] on file Legal Sex Male 7:48 AM E BUSINESS MANAGER Gender Identity Male 04/10/2021 6:39 AM E BUSINESS MANAGER Sexual Orientation Straight 03/15/2021 5: 03 PM E BUSINESS MANAGER 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 Not on file Not on file documented as of this encounter Medications at Time of Discharge acetaminophen ER (TYLENOL) 650 mg 8 hr tabletIndications :Arthritic Pain Take 2 tablets (1,300 mg total) by mouth 2 (two) times a day hydroCHLOROthiazi de (HYDRODIURIL) 25 mg tabletIndications :hypertension 1 tablet (25 mg total) 08/11/2019 lisinopriL (PRINIVIL,ZESTRIL ) 20 mg tablet 07/09/2019 meloxicam (MOBIC) 15 mg tablet Take 1 tablet (15 mg total) by mouth daily 10/04/2022 metFORMIN (GLUCOPHAGE) 500 mg tablet TAKE 1 TABLET BY MOUTH 2 TIMES PER DAY WITH MEALS 10/28/2022 multivitamin capsuleIndication s:Vitamin Deficiency Prevention Take 1 capsule by mouth every morning rosuvastatin (CRESTOR) 20 mg tabletIndications :hyperlipidemia Take 1 tablet (20 mg total) by mouth every morning 07/19/2019 buPROPion XL (WELLBUTRIN XL) 300 mg 24 hr tablet Take 1 tablet (300 mg total) by mouth every morning 11/28/2022 12/25/2023 documented as of this encounter Discharge Disposition Disposition Code Departure Means Destination Discharge to home or self care documented in this encounter Plan of Treatment Not on file documented as of this encounter Procedures Procedure Name Priority Date/Time Associated Diagnosis Comments NM BONE IMAGING 3 PHASE Schedule Routine, Read Routine (OP Routine) 01/25/2023 12:03 PM CDT Right knee pain, unspecified chronicity documented in this encounter Results * NM Bone Imaging 3 Phase (01/25/2023 12:03 PM CDT) Anatomical Region Laterality Modality N/A Nuclear Medicine 01/25/2023 12:2 5 PM CDT Narrative 01/25/2023 12:27 PM CDT EXAM DESCRIPTION: ?? NM BONE IMAGING 3 PHASE REASON FOR STUDY: Knee replaced with suspected loosening, right knee replacement 3 years ago with persistent pain ever since. RADIOPHARMACEUTICAL: 25.3 ??mCi Tc-99m ??MDP ??via a ??right antecubital ??IV site TECHNIQUE: Limited three phase scintigrams of the ??bilateral knees ??were obtained. ?? COMPARISON: Prior Bone Scan: ?? No prior bone scan. ?? Prior Anatomic imaging: Correlation with right knee radiograph 12/27/2022. ?? FINDINGS: No evidence of hyperemia. ??No abnormal activity on the blood pool images. ??On the delayed phase images there is mild radiotracer uptake at the bone prosthesis interface. ??This is most pronounced in the posteromedial tibial plateau. ??However, the uptake is low level. ??Mild arthritic pattern of activity in the left knee. IMPRESSION: Right total knee arthroplasty with no scintigraphic evidence of loosening. THIS IS AN ELECTRONICALLY VERIFIED FINAL REPORT 01/25/2023 12:27 PM - Electronically signed by ??Sajan Barclay M.D. CH: D: ??01/25/2023 12:27 PM T: ??01/25/2023 12:27 PM Report ID: [id number] Reading Location: ??[id number] Procedure Note Sajan Barclay Jr., MD - 01/25/2023 EXAM DESCRIPTION: NM BONE IMAGING 3 PHASE REASON FOR STUDY: Knee replaced with suspected loosening, right knee replacement 3 years ago with persistent pain ever since. RADIOPHARMACEUTICAL: 25.3 mCi Tc-99m MDP via a right antecubital IVsite TECHNIQUE: Limited three phase scintigrams of the bilateral knees were obtained. COMPARISON: Prior Bone Scan: No prior bone scan. Prior Anatomic imaging: Correlation with right knee radiograph 12/27/2022. FINDINGS: No evidence of hyperemia. No abnormal activity on the blood pool images.On the delayed phase images there is mild radiotracer uptake at the bone prosthesis interface. This is most pronounced in the posteromedial tibial plateau. However, the uptake is low level. Mild arthritic pattern of activity in the left knee. IMPRESSION: Right total knee arthroplasty with no scintigraphic evidence of loosening. THIS IS AN ELECTRONICALLY VERIFIED FINAL REPORT 01/25/2023 12:27 PM - Electronically signed by Sajan Barclay M.D. CH: LESTER Report ID: [id number] Reading Location: [id number] Regino Roberts MD IMG NM PROCEDURES Final Result documented in this encounter Visit Diagnoses Not on filedocumented in this encounter Care Teams Filterer Relationship Specialty Start Date End Date Gal De Jesus DO [address] [place] [address] [address] PCP - General Family Medicine 12/28/22 documented as of this encounter
--- OUTSIDE RECORDS SUMMARY | 2024-04-26 21:33 | XMS_ITS | Encounter Summary ---
Author Organization [facility] Address [address] [place] [address]. [place], [place] [address] [place] [address] Care Team Providers Care Printed Circuit Boards Laminator Name Role Phone Arabella Patterson Primary Care Provider [phone] Encounter Details Date Type Department Care Team (Latest Contact Info) Description 04/17/2024 Travel Social History Tobacco Use Types Packs/Day Years Used Date Smoking Tobacco: Never Passive Smoke Exposure: Never Smokeless Tobacco: Never Alcohol Use Standard Drinks/Week Comments Yes 3.3 [...] Diagnoses Not on filedocumented in this encounter Additional Health Concerns Assessment Noted Time PHQ-9 Depression Total Score: 4 04/17/20 24 12:09 PM TRANSMISSION CALIBRATION ENGINEER documented as of this encounter Care Teams Printed Circuit Boards Laminator Relationship Specialty Start Date End Date Arabella Patterson APNP [address] [place] [address] PCP - General NURSE PRACTITIONER 04/17/24 documented as of this encounter
--- OUTSIDE RECORDS SUMMARY | 2024-04-26 21:33 | XMS_ITS | Encounter Summary ---
Author Organization [facility] Address [address] [place] [address] Care Team Providers Care Criminal Analyst Name Role Phone Gal De Jesus DO Primary Care Provider [phone] Reason for Referral * Diagnostic Imaging (Routine) - Closed Specialty Diagnoses / Procedures Referred By Contac t Referred To Contact Diagnoses Right knee pain, unspecified chronicity Procedures NM Bone Imaging 3 Phase Regino Roberts MD [address] [facility] [address] [place] [address] Phone: tel: [address] [phone] Referral ID Status Reason Start Date Expiration Date Visits Re quested Visits Authorized [id number] Closed 12/27/2022 01/26/2024 2 2 Reason for Visit * Diagnostic Imaging (Routine) - Closed Specialty Diagnoses / Procedures Referred By Contac t Referred To Contact Diagnoses Right knee pain, unspecified chronicity Procedures NM Bone Imaging 3 Phase Regino Roberts MD [address] [facility] [address] [place] [address] Phone: tel: [address] [phone] Referral ID Status Reason Start Date Expiration Date Visits Re quested Visits Authorized [id number] Closed 12/27/2022 01/26/2024 2 2 Encounter Details Date Type Department Care Team (Latest Contact Info) Description 01/25/2023 8:10 AM CDT - 01/25/2023 11:59 PM CDT Hospital Encounter [facility] [address] [place] [address] Right knee pain, unspecified chronicity Discharge Disposition: Discharge to home or self [...] on file Legal Sex Male 7:48 AM DIGITAL STRATEGY SPECIALIST Gender Identity Male 04/10/2021 6:39 AM DIGITAL STRATEGY SPECIALIST Sexual Orientation Straight 03/15/2021 5: 03 PM DIGITAL STRATEGY SPECIALIST 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 CH: LESTER D: ??01/25/2023 12:27 PM T: ??01/25/2023 12:27 PM Report ID: [id number] Reading Location: ??[id number] Procedure Note Sajan Barclay Jr., MD - [...] Sajan Barclay M.D. CH: LESTER Report ID: [id number] Reading Location: [place] [address] Regino Roberts MD [facility] PROCEDURES Final Result documented in this encounter Visit Diagnoses Diagnosis Right knee pain, unspecified chronicity documented in this encounter Administered Medications Inactive Administered Medications - up to 3 most recent administrations Medication Order MAR Action Action Date Dose Rate Site tc-99m medronate (MDP) injection 25.3 millicurie 25.3 millicurie, intravenous, Once in imaging, radiopharmaceutical, Starting on Sat01/25/23 at 0912, For 1 dose, Indications: Diagnostic RadiographyIndications: Diagnostic Radiography Given 01/25/2023 8:30 AM CDT 25.3 millicuries Right Hand documented in this encounter Orders Medications Ordered That Jimmy ht Not Have Been Administered Count Last Ordered Date First Ordered Date tc-99m medronate (MDP) injec tion 25.3 millicurie 1 01/25/2023 documented in this encounter Care Teams Criminal Analyst Relationship Specialty Start Date End Date Gal De Jesus DO [facility] [address] [place] [address] PCP - General Family Medicine 12/28/22 documented as of this encounter
--- OUTSIDE RECORDS SUMMARY | 2024-04-26 21:33 | XMS_ITS | Clinical Summary ---
Author Organization [facility] [place] Address [address] [place] [address] Care Team Providers Care Tow Truck Driver Name Role Phone Gal De Jesus DO Primary Care Provider [phone] Allergies No known active allergies Medications rosuvastatin (CRESTOR) 20 mg tabletIndicatio ns:hyperlipidem ia Take 1 tablet (20 mg total) by mouth every morning 0 Active hydroCHLOROthia zide (HYDRODIURIL) 25 mg tabletIndicatio ns:hypertension 1 tablet (25 mg total) 0 Active lisinopriL (PRINIVIL,ZESTR [place]) 20 mg tablet 0 Active multivitamin capsuleIndicati ons:Vitamin Deficiency Prevention Take 1 capsule by mouth every morning Active acetaminophen ER (TYLENOL) 650 mg 8 hr tabletIndicatio ns:Arthritic Pain Take 2 tablets (1,300 mg total) by mouth 2 (two) times a day Active meloxicam (MOBIC) 15 mg tablet Take 1 tablet (15 mg total) by mouth daily 3 Active metFORMIN (GLUCOPHAGE) 500 mg tablet TAKE 1 TABLET BY MOUTH 2 TIMES PER DAY WITH MEALS 3 Active buPROPion XL (WELLBUTRIN XL) 300 mg 24 hr tabletIndicatio ns:major depressive disorder Take 1 tablet (300 mg total) by mouth every morning 30 tablet 2 4 06/25/19 25 Active sertraline (Zoloft) 100 mg tabletIndicatio ns:depression Take 1 tablet (100 mg total) by mouth daily 30 tablet 2 4 07/10/19 25 Active sertraline (Zoloft) 50 mg tabletIndicatio ns:depression Take 2 tablets (100 mg total) by mouth daily 60 tablet 2 4 04/10/20 24 Discontinu ed(Reorder ) sertraline (Zoloft) 50 mg tabletIndicatio ns:depression Take 2 tablets (100 mg total) by mouth daily 60 tablet 2 4 04/10/20 24 Discontinu ed(Reorder ) Active Problems Problem Noted Date Diagnosed Date Glenohumeral arthritis, right 03/13/2021 Overview (03/13/2021): Added automatically from request for surgery [id number] Encounters Date Type Department Care Team Description 03/27/2024 8:30 AM GRAVITY PROSPECTING OBSERVER HELPER Telemedicine [facility] Department of Psychiatry [address] [place] [phone] Pauly Orlando MD Current moderate episode of major depressive disorder without prior episode (HCC) (Primary Dx); Prolonged grief disorder 01/31/2024 9:00 AM CDT Telemedicine [facility] Department of Psychiatry [address] [place] [phone] Pauly Orlando MD Current moderate episode of major depressive disorder without prior episode (HCC) (Primary Dx) from Last 3 Months Immunizations Name Administration Dates Next Due Influenza, Quadrivalent, Spl it, Preservative Free, Intramuscular 03/17/2021,07/12/2018 Surgical History Surgery Date Site/Laterality Comments BACK SURGERY ACHILLES TENDON REPAIR 02/04/1992 - 03/05/1992 KNEE SURGERY Right rtkr ME ARTHRP KNE CONDYLE&PLATU MEDIAL&LAT COMPARTMENTS 01/28/2020 Right Evaristo KNEE ARTHROSCOPY Right x4 KNEE ARTHROSCOPY Left x1 Medical History Medical History Date Comments Hypercholesteremia on statin Hypertension well controlled Osteoarthritis Covid-19 03/17/2021 resolved ADRIANO (obstructive sleep apnea) we ars CPAP GERD (gastroesophageal reflux disease) 1994 Alcohol abuse 1977 Sleep apnea 2004 Hiatal hernia Rheumatoid arthritis (HCC) Family History Medical History Relation Name Comments Arthritis Father Chadwick Breanne Cancer Father Dionte Breanne Heart disease Father Dionte Raymundo Relation Name Status Comments Father Dionte Raymundo Social History Tobacco Use Types Packs/Day Years [...] on file Legal Sex Male 7:48 AM GRAVITY PROSPECTING OBSERVER HELPER Gender Identity Male 04/10/2021 6:39 AM GRAVITY PROSPECTING OBSERVER HELPER Sexual Orientation Straight 03/15/2021 5: 03 PM GRAVITY PROSPECTING OBSERVER HELPER 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 Not on file Not on file Not on file Obstetrics History Last Filed Vital Signs Vital Sign Reading Time Taken Comments Blood Pressure 130/78 12/27/2022 8:29 AM CDT Pulse 70 12/27/2022 8:29 AM CDT Temperature 36.7 ??C (98.1 ??F) 04/11/2021 7:00 PM CS T Respiratory Rate 11 04/11/2021 7:00 PM GRAVITY PROSPECTING OBSERVER HELPER Oxygen Saturation 94% 04/11/2021 7:00 PM GRAVITY PROSPECTING OBSERVER HELPER Inhaled Oxygen Concentration - - Weight 115.2 kg (254 lb) 12/27/2022 8:29 AM CDT Height 191 cm (6' 3.2 ) 12/27/2022 8:29 AM CDT Body Mass Index 31.58 12/27/2022 8:29 AM CDT Plan of Treatment Health Maintenance Due Date Last Done Comments Colon Cancer Screening-Colonoscopy 1960 Depression Screening 1960 Hepatitis C Screening 1960 Prostate Cancer Screening-PSA 1960 DTaP/Tdap/Td Vaccine (1 - Tdap) 12/08/1971 Hepatitis B Screening 1978 Regular Well Visit/Exam 18-64 1978 Zoster Vaccine (1 of 2) 2010 Covid-19 Vaccine (3 2023-2 5 season) 2024 08/25/2020, 08/01/2020 Influenza Vaccine (#1) 2024 , 07/12/2018 Pneumococcal vaccine <65 Aged Out No longer eligible based on patient's age to complete this topic Insurance [facility] [id number] [facility] [id number] [facility] [id number] Care Teams Tow Truck Driver Relationship Specialty Start Date End Date Gal De Jesus DO [facility] [address] [place] [address] PCP - General Family Medicine 12/28/22
--- OUTSIDE RECORDS SUMMARY | 2024-04-26 21:33 | XMS_ITS | Referral Summary ---
Author Organization [facility] [place] Address [address] [place] [address] Care Team Providers Care Diesel Mechanic Apprentice Name Role Phone Gal De Jesus DO Primary Care Provider [phone] Encounters Date Type Department Care Team Description 03/27/2024 8:30 AM ENGINEERING ANALYST Telemedicine [facility] Department of Psychiatry [address] [place] [phone] Pauly Orlando MD Current moderate episode of major depressive disorder without prior episode (HCC) (Primary Dx); Prolonged grief disorder 01/31/2024 9:00 AM CDT Telemedicine [facility] Department of Psychiatry [address] [place] [phone] Pauly Orlando MD Current moderate episode of major depressive disorder without prior episode (HCC) (Primary Dx) from Last 3 Months Allergies No known active allergies Medications rosuvastatin [...] (03/13/2021): Added automatically from request for surgery [id number] Immunizations Name Administration Dates Next Due Influenza, Quadrivalent, Spl it, Preservative Free, Intramuscular 03/17/2021,07/12/2018 Social History Tobacco Use Types Packs/Day Years [...] on file Legal Sex Male 7:48 AM ENGINEERING ANALYST Gender Identity Male 04/10/2021 6:39 AM ENGINEERING ANALYST Sexual Orientation Straight 03/15/2021 5: 03 PM ENGINEERING ANALYST 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 Not on file Not on file Not on file Last Filed Vital Signs Vital Sign Reading Time Taken Comments Blood Pressure 130/78 12/27/2022 8:29 AM CDT Pulse 70 12/27/2022 8:29 AM CDT Temperature 36.7 ??C (98.1 ??F) 04/11/2021 7:00 PM CS T Respiratory Rate 11 04/11/2021 7:00 PM ENGINEERING ANALYST Oxygen Saturation 94% 04/11/2021 7:00 PM ENGINEERING ANALYST Inhaled Oxygen Concentration - - Weight 115.2 kg (254 lb) 12/27/2022 8:29 AM CDT Height 191 cm (6' 3.2 ) 12/27/2022 8:29 AM CDT Body Mass Index 31.58 12/27/2022 8:29 AM CDT Plan of Treatment Not on file Insurance [facility] [id number] [facility] [place] 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 [id number] [facility] [id number] Member Subscriber Plan / Payer (Ef fective 2020-Present) Name:Sreedhar Raymundo Member ID:[id number] Relation to Subscriber:Self Name:Breanne Sreedhar L Subscriber ID:[id number] Payer ID:[id number] Type:HEALTHLINK HMO/PPO Address: [facility] [id number] [place] [id number] Care Teams Diesel Mechanic Apprentice Relationship Specialty Start Date End Date Gal De Jesus DO [address] [place] [address] PCP - General Family Medicine 12/28/22
--- OUTSIDE RECORDS SUMMARY | 2024-04-26 21:33 | XMS_ITS | Clinical Summary ---
Author Organization [facility] Address [address] [place] [address]. [place] [address] [place] [address] Care Team Providers Care Scrap Yard Worker Name Role Phone Arabella Patterson Primary Care Provider [phone] Allergies No known active allergies Medications acetaminophen CR (TYLENOL) 650 MG Tab CR 8 hr tablet Take 2 tablets (1,300 mg total) by mouth 2 (two) times daily. Active buPROPion XL (WELLBUTRIN XL) 300 MG 24 hr tablet Take 1 tablet (300 mg total) by mouth daily. 03/27/2024 Active hydroCHLOROthia zide (HYDRODIURIL) 25 MG tablet Take 1 tablet (25 mg total) by mouth daily. 02/09/2024 Active lisinopril (PRINIVIL) 20 MG tablet 04/13/2024 Active meloxicam (MOBIC) 15 MG tablet Take 1 tablet (15 mg total) by mouth daily. 10/21/2023 Active metFORMIN (GLUCOPHAGE) 500 MG tablet TAKE 1 TABLET BY MOUTH 2 TIMES PER DAY WITH MEALS 08/02/2023 Active Multiple Vitamin (MULTIVITAMIN) capsule Take 1 capsule by mouth daily. Active rosuvastatin (CRESTOR) 20 MG tablet Take 1 tablet (20 mg total) by mouth daily. 03/30/2024 Active sertraline (ZOLOFT) 100 MG tablet Take 1 tablet (100 mg total) by mouth daily. 04/10/2024 Active Active Problems Problem Noted Date Diagnosed Date Prediabetes 04/17/2024 Left hip pain 04/17/2024 Hiatal hernia 04/17/2024 Hypertension Hyperlipidemia Depression Encounters Date Type Department Care Team Description 04/17/2024 10:40 AM HAND BANDER Office Visit [facility] Family & Internal Medicine [address] [phone] Arabella Patterson APNP Prediabetes; Hypertension; Hyperlipidemia 04/17/2024 Travel from Last 3 Months Immunizations Name Administration Dates Next Due Fluzone (IIV3, Trivalent, 0. 5 ML Prefilled Syringe) 04/17/2024 Influenza (Generic) 02/28/2022 Influenza Adult (Generic) 04/04/2023,03/17/2021, 07/12/2018 PFIZER COVID-19 (12+) MRNA, LNP-S, PF, LYLE-SUCROSE, 30 MCG/0.3 ML (COMIRNATY) 04/17/2024 Shingrix 06/29/2022,03/09/2022 Family History Medical History Relation Comments Cancer Brother Alcohol Abuse Father Brain cancer Father Relation Status Comments Brother Father Social History Tobacco Use Types Packs/Day Years [...] Comments Blood Pressure 112/78 04/17/2024 11:07 AM HAND BANDER Pulse 70 04/17/2024 11:07 AM HAND BANDER Temperature 36.6 ??C (97.9 ??F) 04/17/2024 1 1:07 AM HAND BANDER Respiratory Rate 16 04/17/2024 11:0 7 AM HAND BANDER Oxygen Saturation 98% 04/17/2024 11: 07 AM HAND BANDER Inhaled Oxygen Concentration - - Weight 110.9 kg (244 lb 9.6 oz) 024 11:07 AM HAND BANDER Height 193 cm (6' 4 ) 04/17/2024 11:07 AM HAND BANDER Body Mass Index 29.77 04/17/2024 11:07 AM HAND BANDER Plan of Treatment Health Maintenance Due Date Last Done Comments Annual Physical 12/08/1963 Hepatitis C 1978 DTaP, Tdap and Td Vaccines (1 - Tdap) 12/08/1979 RSV Immunization or 60+ Years (1 - 1-dose 60+ series) 2020 Colorectal Cancer Screening Colonoscopy (10 Years) 04/17/2025 Postponed from 1960 (Awaiting Documentation) Zoster Vaccines Completed 06/29/2022, 03/09/2022 COVID-19 Vaccine Completed 04/17/2024, , 08/01/2020 Influenza Adult Completed 04/17/2024, 03/08, 02/28/2022, Additional history exists Meningococcal Vaccine Aged Out No jessie nika eligible based on patient's age to complete this topic Pneumococcal Vaccine: Pediatrics (0 to 5 Years) and At-Risk Patients (6 to 64 Years) Aged Out No longer eligible based on patient's age to complete this topic RSV Immunizations Under 20 Months Aged Out No longer eligible based on patient's age to complete this topic Procedures Procedure Name Priority Date/Time Associated Diagnosis Comments COLLECT.CAPILLARY (FNGR,HEEL,EAR) Routine 04/17/2024 11:10 AM HAND BANDER Prediabetes HEMOGLOBIN, GLYCOSYLATED Routine 04/17/2024 Prediabetes from Last 3 Months Results * HEMOGLOBIN, GLYCOSYLATED (04/17/2024) HGB A1C 5.5 % [facility] 04/17/2024 us Arabella [facility] Final Resul t [facility] [address] [place] [address], from Last 3 Months Insurance [facility] [facility] Care Teams Scrap Yard Worker Relationship Specialty Start Date End Date Arabella Patterson APNP [address] [place] [id number] PCP - General NURSE PRACTITIONER 04/17/24
--- OUTSIDE RECORDS SUMMARY | 2024-04-26 21:34 | XMS_ITS | Encounter Summary ---
Author Organization [facility] Healthcare Address [address] [place] [address] Care Team Providers Care Rigger Chief Name Role Phone Deshawn Talbert MD Primary Care Provider +1 [phone] Encounter Details Date Type Department Care Team (Late st Contact Info) Description 08/01/2021 7:15 PM CDT Lab [address] [address] Right knee pain, unspecified chronicity Social History Tobacco Use Types Packs/Day Years [...] on file Legal Sex Male 7:48 AM BINDER TECHNICIAN Gender Identity Male 04/10/2021 6:39 AM BINDER TECHNICIAN Sexual Orientation Straight 03/15/2021 5: 03 PM BINDER TECHNICIAN 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 Not on file Not on file documented as of this encounter Plan of Treatment Not on file documented as of this encounter Procedures Procedure Name Priority Date/Time Associated Diagnosis Comments AEROBIC AND ANAEROBIC CULTURE AND GRAM STAIN Routine 08/01/2021 7:10 PM CDT Right knee pain, unspecified chronicity CRYSTAL ANALYSIS, BODY FLUID Routine 08/01/2021 6:38 PM CDT Right knee pain, unspecified chronicity CELL DIFFERENTIAL, BODY FLUID Routine 08/01/2021 6:38 PM CDT Right knee pain, unspecified chronicity CELL COUNT W/REFLEX DIFFERENTIAL, BODY FLUID Routine 08/01/2021 6:38 PM CDT Right knee pain, unspecified chronicity documented in this encounter Results * Aerobic and anaerobic culture and gram stain Synovial fluid Knee, right (08/01/2021 7:10 PM CDT) Direct Specimen Exam Stain: Cytospin Gram stain shows: No polymorphonuclear leukocytes seen. No organisms seen. JESSY RAO Report Final Report: No growth JESSY [facility] Synovial fluid (Knee, right) 08/01/2021 7:10 PM CDT 08/01/2021 8:45 PM CDT Narrative JESSY RAO - 08/07/2021 10:17 AM CDT Testing performed by [facility] ([phone]) Specimens submitted from normally sterile body sites will have all bacterial morphotypes identified. Specimens that contain grossly mixed mayra and/or are from body sites that are not normally sterile will be examined for Staphylococcus aureus, Pseudomonas aeruginosa, beta-hemolytic strep, vancomycin-resistant Enterococcus, Bacteroides, Parabacteroides, Clostridium perfringens and fungus. If any of these are isolated, the organism will be reported. Current interpretive data was last revised on 2019. us Catherine Gray MD LAB MICROBIOLOGY - GEN ERAL ORDERABLES Final Result JESSY RAO [facility] Department [place] [address] * Cell Differential, Body Fluid (08/01/2021 6:38 PM CDT) Total cells diffed 100 cells JESSY RAO Comment: Interpretive Data Unless otherwise specified, the reference range and other method performance specifications have not been established for CSF/Body Fluid tests. ??The test results should be integrated into the clinical context for interpretation. Current interpretive data was last revised on 2018. Neutrophils, fld 25 % [facility] Lymphs, fld 16 % [facility] Monocyte, fld 59 % [facility] Fluid 08/01/2021 6:38 PM CDT 08/01/2021 7:12 PM CDT Catherine Gray MD LAB BODY FLUIDS AND ST OOLS ORDERABLES Final Result Performing Organization Address [facility] Co de Phone Number [facility] Department [place] [address] * (ABNORMAL) Cell count with reflex to differential, body fluid (08/01/2021 6:38 PM CDT) Specimen type, fld Synovial [facility] Color, fld Yellow [facility] Clarity, fld Cloudy(A) Clear CERNER [facility] Nucleated cells, fld 353 /cumm [facility] Comment: Interpretive Data Unless otherwise specified, the reference range and other method performance specifications have not been established for CSF/Body Fluid tests. ??The test results should be integrated into the clinical context for interpretation. Current interpretive data was last revised on 2018. RBC, fld 819 /cumm [facility] Fluid 08/01/2021 6:38 PM CDT 08/01/2021 7:12 PM CDT Narrative [facility] - 08/01/2021 9:42 PM CDT Specify:->knee, right Catherine Gray MD LAB BODY FLUIDS AND ST OOLS ORDERABLES Final Result Performing Organization Address City/[facility] Co de Phone Number [facility] Department [place] [address] * Crystal Analysis, Body Fluid (08/01/2021 6:38 PM CDT) Specimen type, fld Synovial [facility] Crystals None Seen None Seen [facility] Fluid 08/01/2021 6:38 PM CDT 08/01/2021 7:12 PM CDT Narrative JESSY RAO - 08/01/2021 10:31 PM CDT Specify:->knee, right us Catherine Gray MD LAB BODY FLUIDS AND ST OOLS ORDERABLES Final Result [facility] Department [place] [address] documented in this encounter Visit Diagnoses Diagnosis Right knee pain, unspecified chronicity documented in this encounter Care Teams Rigger Chief Relationship Specialty Start Date End Date Deshawn Talbert MD [address] [place] [address] PCP - General Internal Medicine 09/07/19 12/27/22 documented as of this encounter
--- OUTSIDE RECORDS SUMMARY | 2024-04-26 21:34 | XMS_ITS | Encounter Summary ---
Author Organization [facility] Address [address] [place] [address] Care Team Providers Care Track Car Operator Name Role Phone Deshawn Talbert MD Primary Care Provider [phone] [phone] Reason for Visit * Diagnostic Imaging (Routine) - Closed Specialty Diagnoses / Procedures Referred By Contac t Referred To Contact Diagnoses Right knee pain, unspecified chronicity Procedures XR Pelvis 1 or 2 Views Regino Roberts MD [address] [place] [address] [address] [address] Phone: tel: [facility] Referral ID Status Reason Start Date Expiration Date Visits Re quested Visits Authorized [id number] Closed 12/27/2022 01/26/2024 1 1 Encounter Details Date Type Department Care Team (Latest Contact Info) Description 12/27/2022 7:35 AM CDT - 12/27/2022 11:59 PM CDT Hospital Encounter [facility] Orthopedics and Sports Medicine [address] [facility] [address], [place] [id number] Discharge Disposition: Discharge to home or self [...] on file Legal Sex Male 7:48 AM ACETYLENE TORCH SOLDERER Gender Identity Male 04/10/2021 6:39 AM ACETYLENE TORCH SOLDERER Sexual Orientation Straight 03/15/2021 5: 03 PM ACETYLENE TORCH SOLDERER 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 Not on file [...] Procedure Name Priority Date/Time Associated Diagnosis Comments XR PELVIS 1 OR 2 VIEWS Schedule Routine, Read Routine (OP Routine) 12/27/2022 8:33 AM CDT Right knee pain, unspecified chronicity documented in this encounter Results * XR Pelvis 1 or 2 Views (12/27/2022 8:33 AM CDT) Anatomical Region Laterality Modality Body, Pelvis N/A Digital Radiogra phy Narrative 12/27/2022 10:00 AM CDT Normal AP pelvis with mild bilateral early degenerative signs us Regino Roberts MD IMG XR PROCEDURES Edited Result - Final documented in this encounter Visit Diagnoses Not on filedocumented in this encounter Care Teams Track Car Operator Relationship Specialty Start Date End Date Deshawn Talbert MD [address] [place] [address] PCP - General Internal Medicine 09/07/19 12/27/22 documented as of this encounter
--- OUTSIDE RECORDS SUMMARY | 2024-04-26 21:34 | XMS_ITS | Encounter Summary ---
Author Organization [facility] Healthcare Address [address] [place] [address] Care Team Providers Care Cottrell Blower Name Role Phone Deshawn Talbert MD Primary Care Provider [phone] Encounter Details Date Type Department Care Team (Late st Contact Info) Description 08/01/2021 10:10 AM CDT Lab [address] [place] [address] Right knee pain, unspecified chronicity Social History [...] on file Legal Sex Male 7:48 AM STUDENT SERVICES REPRESENTATIVE Gender Identity Male 04/10/2021 6:39 AM STUDENT SERVICES REPRESENTATIVE Sexual Orientation Straight 03/15/2021 5: 03 PM STUDENT SERVICES REPRESENTATIVE 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 Not on file Not on file Not on file documented as of this encounter Plan of Treatment Not on file documented as of this encounter Procedures Procedure Name Priority Date/Time Associated Diagnosis Comments CRP (ACUTE PHASE) Routine 08/01/2021 10: 52 AM CDT Right knee pain, unspecified chronicity ERYTHROCYTE SEDIMENTATION RATE Routine 08/01/2021 10:23 AM CDT Right knee pain, unspecified chronicity documented in this encounter Results * CRP (acute phase) (08/01/2021 10:52 AM CDT) CRP 1.2 <=10.0 mg/L [facility] Blood 08/01/2021 10:5 2 AM CDT 08/01/2021 1:38 PM CDT Catherine Gray MD LAB BLOOD ORDERABLES F inal Result Performing Organization Address City/[facility]/ZIP Co de Phone Number [facility] [place] [address] * Erythrocyte sedimentation rate (08/01/2021 10:23 AM CDT) Pathologist [facility] Erythrocyte sedimentation rate 11 1 - 20 mm/hr [facility] Blood 08/01/2021 10:2 3 AM CDT 08/01/2021 11:20 AM CDT Catherine Gray MD LAB BLOOD ORDERABLES F inal Result Performing Organization Address City/[facility]/ZIP Co de Phone Number [facility] [place] [address] documented in this encounter Visit Diagnoses Diagnosis Right knee pain, unspecified chronicity documented in this encounter Care Teams Cottrell Blower Relationship Specialty Start Date End Date Deshawn Talbert MD [address] [place] [address] PCP - General Internal Medicine 09/07/19 12/27/22 documented as of this encounter
--- OUTSIDE RECORDS SUMMARY | 2024-04-26 21:34 | XMS_ITS | Encounter Summary ---
Author Organization [facility] Address [address] [place] [address] Phone Care Team Providers Care Canary Raiser Name Role Phone Deshawn Talbert MD Primary Care Provider [phone] [phone] Encounter Details Date Type Department Care Team (Late st Contact Info) Description 08/15/2021 Telephone [facility] Orthopaedic Surgery [address] [facility] [address] [place] [address] Catherine Gray MD [facility] [place] [address] Social History Tobacco Use Types Packs/Day Years [...] on file Legal Sex Male 7:48 AM EXECUTIVE ASSISTANT Gender Identity Male 04/10/2021 6:39 AM EXECUTIVE ASSISTANT Sexual Orientation Straight 03/15/2021 5: 03 PM EXECUTIVE ASSISTANT 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 LMOV explaining that workup is negative for infection. Explained that surgeon will talk to her partners about surgical options and we will call patient to discuss. documented in this encounter Plan of Treatment Not on file documented as of this encounter Visit Diagnoses Not on filedocumented in this encounter Care Teams Canary Raiser Relationship Specialty Start Date End Date Deshawn Talbert MD [address] [place] [address] PCP - General Internal Medicine 09/07/19 12/27/22 documented as of this encounter
--- OUTSIDE RECORDS SUMMARY | 2024-04-26 21:34 | XMS_ITS | Encounter Summary ---
Author Organization [facility] Address [address] [place] [address] Phone Care Team Providers Care Oil Well Pumper Name Role Phone Deshawn Talbert MD Primary Care Provider [phone] [phone] Encounter Details Date Type Department Care Team (Late st Contact Info) Description 12/20/2022 Telephone [facility] Orthopaedic Surgery [facility] Medical Office Building [address] [place] [address] Catherine Gray MD [facility] [place] [address] Social History Tobacco Use Types [...] on file Legal 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 Discussed the Dr. Gray does not perform routine aspirations due to risk of infection to the prosthetic joint. Additionally,her last note recommended against liner swap and offered consideration of all component revision. Patient has no interest in this currently. He was offered an appointment to discuss further and declined. documented in this encounter Plan of Treatment Not on file documented as of this encounter Visit Diagnoses Not on filedocumented in this encounter Care Teams Oil Well Pumper Relationship Specialty Start Date End Date Deshawn Talbert MD [address] [place] [address] PCP - General Internal Medicine 09/07/19 12/27/22 documented as of this encounter
--- OUTSIDE RECORDS SUMMARY | 2024-04-26 21:34 | XMS_ITS | Encounter Summary ---
Author Organization [facility] Address [address] [place] [address] Care Team Providers Care Tire Bladder Maker Name Role Phone Deshawn Talbert MD Primary Care Provider [phone] [phone] Reason for Visit * Diagnostic Imaging (Routine) - Closed Specialty Diagnoses / Procedures Referred By Contac t Referred To Contact Diagnoses Right knee pain, unspecified chronicity Procedures XR Knee Right 3 Views Regino Roberts MD [address] [place] [address] [address] [address] Phone: tel: [facility] Referral ID Status Reason Start Date Expiration Date Visits Re quested Visits Authorized [id number] Closed 12/27/2022 01/26/2024 1 1 Encounter Details Date Type Department Care Team (Latest Contact Info) Description 12/27/2022 7:35 AM CDT - 12/27/2022 11:59 PM CDT Hospital Encounter [facility] Medical [facility] Orthopedics and Sports Medicine [address] [facility] [address] [id number] Discharge Disposition: Discharge to home or self [...] on file Legal Sex Male 7:48 AM 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 Gender Identity Male 04/10/2021 6:39 AM 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 Sexual Orientation Straight 03/15/2021 5: 03 PM 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 ??No obvious Ms. Sizing or malpositioning but there are some radiolucent lines best seen on the AP around the tibial base plate. ??There is slight overhang of the lateral facet of the patella. us Regino Roberts MD IMG XR PROCEDURES Final Result documented in this encounter Visit Diagnoses Not on filedocumented in this encounter Care Teams Tire Bladder Maker Relationship Specialty Start Date End Date Deshawn Talbert MD [address] [place] [address] PCP - General Internal Medicine 09/07/19 12/27/22 documented as of this encounter
--- OUTSIDE RECORDS SUMMARY | 2024-04-26 21:34 | XMS_ITS | Encounter Summary ---
Author Organization [facility] Address [address] [address] Care Team Providers Care Market Research Senior Project Manager Name Role Phone Deshawn Talbert MD Primary Care Provider [phone] Reason for Referral * Diagnostic Imaging (Routine) - Closed Specialty Diagnoses / Procedures Referred By Contac t Referred To Contact Diagnoses Right knee pain, unspecified chronicity Procedures NM Bone Imaging 3 Phase Regino Roberts MD [address] [place] [address] [address] [place] [address] Phone: tel: [address] [phone] Referral ID Status Reason Start Date Expiration Date Visits Re quested Visits Authorized [id number] Closed 12/27/2022 01/26/2024 2 2 * Diagnostic Imaging (Routine) - Closed Specialty Diagnoses / Procedures Referred By Contac t Referred To Contact Diagnoses Right knee pain, unspecified chronicity Procedures XR Pelvis 1 or 2 Views Regino Roberts MD [address] [place] [address] [address] [place] [address] Phone: tel: [facility] Referral ID Status Reason Start Date Expiration Date Visits Re quested Visits Authorized [id number] Closed 12/27/2022 01/26/2024 1 1 * Diagnostic Imaging (Routine) - Closed Specialty Diagnoses / Procedures Referred By Contac t Referred To Contact Diagnoses Right knee pain, unspecified chronicity Procedures XR Knee Right 3 Views Regino Roberts MD [address] [facility] [address] [place] [address] Phone: tel: [facility] Referral ID Status Reason Start Date Expiration Date Visits Re quested Visits Authorized [id number] Closed 12/27/2022 01/26/2024 1 1 Reason for Visit * Reason Comments Pain Encounter Details Date Type Department Care Team (Late st Contact Info) Description 12/27/2022 8:30 AM CDT Office Visit [facility] Orthopedics and Sports Medicine [address] [facility] [address] [place] [address] Regino Roberts MD [address] [facility] [address] [place] [address] Right knee pain, unspecified chronicity (Primary Dx); Painful total knee replacement, initial encounter (FORMERLY [facility]) Social History Tobacco Use Types Packs/Day Years [...] on file Legal 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 Gender Identity Male 04/10/2021 6:39 AM DIVISION SUPERVISOR Sexual Orientation Straight 03/15/2021 5: 03 PM DIVISION SUPERVISOR 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 NEW PATIENT VISIT Subjective CHIEF COMPLAINT He had concerns including Pain of the Right Knee. HISTORY OF PRESENT ILLNESS This is a pleasant 62-year-old gentleman complaining of painful right total knee replacement. He had right total knee arthroplasty by Dr. Loera approximately 3 years ago in 2019. He is had pain and stiffness since the time of his surgery. He also complains of lateral swelling. He does not complainof instability specifically. He states that the knee does not ???give out on him?? , but it is painful after extended periods in the car or [place] the [place]. He does complain of start-up pain with his 1st few steps after sitting for long periods. This improves with increased time on his feet but does not go away entirely. He was seen by Dr. Gray at [facility] in 2021 and she initially recommended polyethylene exchange but then felt complete revision would be better. At that time ESR and CRP were drawn and were within normal limits. The knee was aspirated by Dr. Gray and there was no evidence of infection. Of note, the patient lost his son Patrick to fentanyl overdose 14 months ago at the age of 2020 yearsold. Patrick was a star family practice doctor and talented [facility] gambler. He was taking mail order Percocet and overdosed on what was determined to be fentanyl waist Percocet. Mr. Raymundo is still grieving from this and acknowledges that he has significant difficulty with concentration and is nothimself as a result of his son's unexpected Pain Assessment Pain Assessment: 0-10 Pain Score: 2 PAST MEDCIAL HISTORY He has a past medical history of Alcohol abuse (1976), COVID-19 (03/17/2021), GERD (gastroesophageal reflux disease) (1994), Hiatal hernia, Hypercholesteremia, Hypertension, ADRIANO (obstructive sleep apnea), Osteoarthritis, Rheumatoid arthritis (), and Sleep apnea (2003). He has no past medical history of Awareness under anesthesia, Delayed emergence from general anesthesia, Hard to intubate, Malignant hyperthermia, PONV (postoperative nausea and vomiting), Postoperative delirium, or Pseudocholinesterase deficiency. PAST SURGICAL HISTORY He has a past surgical history that includes Back surgery; Achilles tendon repair (02/1992); Knee surgery (Right); pr arthrp kne condyle&platu medial&lat compartments (Right, 01/28/2020); Knee arthroscopy (Right); and Knee arthroscopy (Left). MEDICATIONS He has a current medication list which includes the following prescription(s): acetaminophen er, bupropion xl, hydrochlorothiazide, lisinopril, meloxicam, metformin, multivitamin, and rosuvastatin. ALLERGIES He has No Known Allergies. SOCIAL HISTORY He reports that he has never smoked. He has never used smokeless tobacco. He reports that he does not use drugs. Patient reports consuming alcoholic drinks monthly or less, with a daily consumption of drinks. Patient denies daily consumption of 6 or more alcoholic drinks at one occasion. FAMILY HISTORY His family history includes Arthritis in his father; Cancer in his father; Heart disease in his father. REVIEW OF SYSTEMS Review of Systems Constitutional: Negative for appetite change and fever. HENT: Negative for drooling, facial swelling and voice change. Eyes: Negative for discharge. Respiratory: Negative for apnea and wheezing. Cardiovascular: Negative for chest pain and palpitations. Gastrointestinal: Negative for abdominal distention and abdominal pain. Endocrine: Negative for polydipsia. Genitourinary: Negative for flank pain. Musculoskeletal: Positive for arthralgias and myalgias. Skin: Negative for color change and rash. Neurological: Negative for speech difficulty. Hematological: Does not bruise/bleed easily. Psychiatric/Behavioral: Negative for hallucinations. Objective PHYSICAL EXAM BP 130/78 Pulse 70 Ht 191 cm (6' 3.2 ) Wt 115.2 kg (254 lb) BMI 31.58 kg/m?? Right knee Inspection Erythema: absent Cellulitis: absent Swelling: present and mild Surgical scar/wound: present. The surgical scar/wound is healed. There is no drainage present. Skin temperature: normal Alignment: neutral Gait: antalgic Palpation Tenderness: present. The tenderness is located in the lateral retinaculum and patella. Crepitus: negative Patella grind: negative Subluxation: negative Range of motion The patient has reduced range of motion of the right knee. The patient has pain with range of motion of the right knee. Flexion contracture: no. Extensor lag: no. Stability Varus stress at 0 degrees: laxity and 1+ Valgus stress at 0 degrees: stable Varus stress at 30 degrees: 1+ and laxity Valgus stress at 30 degrees: stable Strength The patient has 5/5 strength thoughout right knee. Neurovascular The patient has normal vascular on the right side of their body. The patient has normal sensation on the right side of their body. Comments: Range of motion is from full extension to only about 105?? of flexion both passively and actively. REVIEW OF X-RAYS/STUDIES/LABS XR Knee Right 3 Views Cemented 3 component posterior stabilized right total knee arthroplasty with Gross and Nephew components. No obvious Ms. Sizing or malpositioning but there are some radiolucent lines best seen on theAP around the tibial base plate. There is slight overhang of the lateral facet of the patella. XR Pelvis 1 or 2 Views Normal AP pelvis with mild bilateral early degenerative signs Assessment/Plan Sreedhar was seen today for pain. Diagnoses and all orders for this visit: Right knee pain, unspecified chronicity - XR Knee Right 3 Views - XR Pelvis 1 or 2 Views - NM Bone Imaging 3 Phase; Future Painful total knee replacement, initial encounter ([facility]) Procedures PLAN ESR and CRP from previous workup were normal. There are some radiolucencies around the tibia and soI am going to get a bone scan to rule out aseptic loosening. I will call him with the results of this study. I would be hesitant to proceed with complete revision without 1st determining concrete etiology of his symptoms. He is also hesitant to move forward with revision arthroplasty if it can be avoided. Regino Roberts MD documented in this encounter Plan of Treatment Not on file documented as of this encounter Procedures Procedure Name Priority Date/Time Associated Diagnosis Comments XR KNEE RIGHT 3 VIEWS Schedule Routine, Read Routine (OP Routine) 12/27/2022 8:33 AM CDT Right knee pain, unspecified chronicity XR PELVIS 1 OR 2 VIEWS Schedule [...] PM T: ??01/25/2023 12:27 PM Report ID: [id number] Reading Location: ??[id number] Procedure Note Sajan Barclay Jr., MD - [...] Sajan Barclay M.D. CH: LESTER Report ID: [id number] Reading Location: [id number] Regino Roberts MD IMG NM PROCEDURES Final Result * XR Knee Right 3 Views (12/27/2022 [...] of the lateral facet of the patella. Regino Roberts MD IMG XR PROCEDURES Final Result * XR Pelvis 1 or 2 Views (12/27/2022 8:33 AM CDT) Anatomical Region Laterality Modality Body, Pelvis N/A Digital Radiogra phy Narrative 12/27/2022 10:00 AM CDT Normal AP pelvis with mild bilateral early degenerative signs Regino Roberts MD IMG XR PROCEDURES Edited Result - Final documented in this encounter Visit Diagnoses Diagnosis Right knee pain, unspecified chronicity- Primary Painful total knee replacement, initial encounter ([facility]) Right knee pain, unspecified chronicity documented in this encounter Historical Medications * This list may reflect changes made after this encounter. metFORMIN (GLUCOPHAGE) 500 mg tablet TAKE 1 TABLET BY MOUTH 2 TIMES PER DAY WITH MEALS 10/28/2022 meloxicam (MOBIC) 15 mg tablet Take 1 tablet (15 mg total) by mouth daily 10/04/2022 buPROPion XL (WELLBUTRIN XL) 300 mg 24 hr tablet Take 1 tablet (300 mg total) by mouth every morning 11/28/2022 12/25/2023 added in this encounter Care Teams Market Research Senior Project Manager Relationship Specialty Start Date End Date Deshawn Talbert MD [address] [place] [address] PCP - General Internal Medicine 09/07/19 12/27/22 documented as of this encounter
--- OUTSIDE RECORDS SUMMARY | 2024-04-26 21:34 | XMS_ITS | Encounter Summary ---
Author Organization [facility] Address [address] [place] [address] Phone Care Team Providers Care Dental Director Name Role Phone Deshawn Talbert MD Primary Care Provider [phone] Reason for Referral * Diagnostic Imaging (Routine) - Closed Specialty Diagnoses / Procedures Referred By Carlita love Referred To Contact Diagnoses Right knee pain, unspecified chronicity Procedures XR Bone Length Study Catherine Gray MD Phone: tel: fax: [facility] Referral ID Status Reason Start Date Expiration Date Visits Re quested Visits Authorized [id number] Closed 08/01/2021 08/31/2022 1 1 Encounter Details Date Type Department Care Team (Late st Contact Info) Description 08/01/2021 Orders Only 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 Not on file Not on file Not on file documented as of this encounter Plan of Treatment Not on file documented as of this encounter Results * CRP (acute phase) (08/01/2021 10:52 AM CDT) CRP 1.2 <=10.0 mg/L [facility] Blood 08/01/2021 10:5 2 AM CDT 08/01/2021 1:38 PM CDT Catherine Gray MD LAB BLOOD ORDERABLES F inal Result Performing Organization Address City/[facility]/ZIP Co de Phone Number [facility] Department [place] [address] * Erythrocyte sedimentation rate (08/01/2021 10:23 AM CDT) Erythrocyte sedimentation rate 11 1 - 20 mm/hr [facility] Blood 08/01/2021 10:2 3 AM CDT 08/01/2021 11:20 AM CDT Catherine Gray MD LAB BLOOD ORDERABLES F inal Result Performing Organization Address City/[facility] Co de Phone Number [facility] Department [place] [employer] [place] [address] * XR Bone Length Study (08/01/2021 9:52 AM CDT) Anatomical Region Laterality Modality Lower Extremities, Hip, Thig h, Knee, Lower Leg, Ankle, Foot N/A Computed Radiography 08/01/2021 10:0 4 AM CDT Impressions 08/01/2021 10:04 AM CDT Mild right leg mechanical valgus. No leg length discrepancy. Electronically signed by: John Melo M.D. Narrative 08/01/2021 10:04 AM CDT EXAMINATION: Bone length study HISTORY: Knee pain FINDINGS: Standing AP projections of both lower extremities were performed with comparison made to same day knee radiographs. There is a right knee arthroplasty. There is no leg length discrepancy. There is right leg mechanical valgus. Procedure Note John Melo MD PhD - 08/01/2021 EXAMINATION: Bone length study HISTORY: Knee pain FINDINGS: Standing AP projections of both lower extremities were performed with comparison made to same day knee radiographs. There is a right knee arthroplasty. There is no leg length discrepancy. There is right leg mechanical valgus. IMPRESSION: Mild right leg mechanical valgus. No leg length discrepancy. Electronically signed by: John Melo M.D. Catherine Gray MD IMG XR PROCEDURES Radha l Result documented in this encounter Visit Diagnoses Diagnosis Right knee pain, unspecified chronicity- Primary documented in this encounter Care Teams Dental Director Relationship Specialty Start Date End Date Deshawn Talbert MD [address] [place] [address] PCP - General Internal Medicine 09/07/19 12/27/22 documented as of this encounter
--- OUTSIDE RECORDS SUMMARY | 2024-04-26 21:35 | XMS_ITS | Encounter Summary ---
Author Organization [facility] Isabella Oliver of [facility] Address [address] [place] [address] Phone Care Team Providers Care Appeals Examiner Name Role Phone Deshawn Talbert MD Primary Care Provider [phone] [phone] Reason for Referral * Procedure (Routine) - Closed Specialty Diagnoses / Procedures Referred By Carlita love Referred To Contact Diagnoses Right knee pain, unspecified chronicity Procedures JOINT ASPIRATION Catherine Gray MD Phone: tel: fax: [facility] (All Locations) Referral ID Status Reason Start Date Expiration Date Visits Re quested Visits Authorized [id number] Closed 08/01/2021 08/31/2022 1 1 * Diagnostic Imaging (Routine) - Closed Specialty Diagnoses / Procedures Referred By Carlita love Referred To Contact Diagnoses Right knee pain, unspecified chronicity Procedures XR Knee Right 4 or More Views Catherine Gray MD Phone: tel: fax: [facility] Referral ID Status Reason Start Date Expiration Date Visits Re quested Visits Authorized [id number] Closed 07/13/2021 08/12/2022 1 1 R PRODUCTS SUPERVISOR Reason for Visit * Reason Comments Pain * Consultation (Routine) - Closed Specialty Diagnoses / Procedures Referred By Jayac t Referred To Contact Orthopedic Surgery Diagnoses Right knee pain, unspecified chronicity Jake Frias MD [address] [place] [address] Phone: tel: fax: [facility] (All Locations) Referral ID Status Reason Start Date Expiration Date V isits Requested Visits Authorized [id number] Closed Specialty Services Required 07/10/2021 08/09/2022 1 1 Encounter Details Date Type Department Care Team (Late st Contact Info) Description 08/01/2021 8:00 AM CDT Office Visit [facility] Orthopaedic Surgery [address] [place] [address] Catherine Gray MD [address] [place] [address] Right knee pain, unspecified chronicity (Primary Dx); Aftercare following right knee joint replacement surgery Social History Tobacco Use Types Packs/Day Years [...] on file Legal Sex Male 7:48 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 Gender Identity Male 04/10/2021 6:39 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 Sexual Orientation Straight 03/15/2021 5: 03 PM PAPER PRODUCTS SUPERVISOR 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 Not on file Not on file Not on file documented as of this encounter Last Filed Vital Signs Vital Sign Reading Time Taken Comments Blood Pressure - - Pulse - - Temperature - - Respiratory Rate - - Oxygen Saturation - - Inhaled Oxygen Concentration - - Weight 121.7 kg (268 lb 6.4 oz) 08/01/2021 8:08 AM CDT Height 191.8 cm (6' 3.5 ) 08/01/2021 8:08 AM CDT Body Mass Index 33.1 08/01/2021 8:08 AM CDT documented in this encounter Progress Notes * Catherine Gray MD - 08/01/2021 8:00 AM CDTAssociated Order(s): JOINT ASPIRATION NEW PATIENT VISIT CHIEF COMPLAINT: Right knee pain HISTORY OF PRESENT ILLNESS: This is a 60 y.o. year old male with Right knee pain. He has a history of total knee arthroplasty 01/[address] Loera. Patient endorses no infectious signs or symptoms and no issues healing the wound postoperatively. Notes that Dr. Loera aspirated the knee (40cc) once and there was no concern for infection. He has not seen him in quite some time as he feels his questions were not addressed. 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 He is able to golf 18 holes 2-3 times per week but the knee is painful and he has to take the cart. He is barely able to ride a bicycle due to the pain. Notes persistent swelling, numbness lateral to the incision as well as pain limiting the abilities to do his activities. He feels he is not better than before surgery. Notes preoperatively he had multiple scope procedures but none within several years of his TKA. He has tried occasionaltylenol without much relief. He has never been happy with the knee and notes pain is the biggest problem. Current implants: Gross + Nephew Oxinium Legion implants 8 femur 7 tibia 9mm poly 29mm patella PAST MEDICAL HISTORY: He has a past medical history of Alcohol abuse (1976), COVID-19 (03/17/2021), GERD (gastroesophageal reflux disease) (1994), Hypercholesteremia, Hypertension, ADRIANO (obstructive sleep apnea), Osteoarthritis, and Sleep apnea (2003). He has no past medical history of Awareness under anesthesia, Delayed emergence from general anesthesia, Hard to intubate, Malignant hyperthermia, PONV (postoperative nausea and vomiting), Postoperative delirium, or Pseudocholinesterase deficiency. PAST SURGICAL HISTORY: He has a past surgical history that includes Back surgery; Achilles tendon repair (02/1992); Knee surgery (Right); pr total knee arthroplasty (Right, 01/28/2020); Knee arthroscopy (Right); and Knee arthroscopy (Left). MEDICATIONS: Current Outpatient Medications on File Prior to Visit Medication Sig Dispense Refill ??? acetaminophen ER (TYLENOL) 650 mg 8 hr tablet Take 1,300 mg by mouth 2 (two) times a day ??? hydroCHLOROthiazide (HYDRODIURIL) 25 mg tablet 25 mg ??? lisinopriL (PRINIVIL,ZESTRIL) 20 mg tablet ??? multivitamin capsule Take 1 capsule by mouth every morning ??? rosuvastatin (CRESTOR) 20 mg tablet Take 20 mg by mouth every morning ??? [DISCONTINUED] docusate sodium (COLACE) 100 mg capsule Take 1 capsule (100 mg total) by mouth 2(two) times a day as needed for constipation (while taking narcotics) 30 capsule 1 ??? [DISCONTINUED] fluticasone propionate (FLONASE) 50 mcg/actuation nasal spray 2 sprays daily ??? [DISCONTINUED] oxyCODONE (ROXICODONE) 5 mg immediate release tablet 1-2 tablets q4-6 hours PRN pain 40 tablet 0 No current facility-administered medications on file prior to visit. ALLERGIES: No Known Allergies. SOCIAL HISTORY: Social History Tobacco Use ??? Smoking status: Never Smoker ??? Smokeless tobacco: Never Used Vaping Use ??? Vaping Use: Never used Substance Use Topics ??? Alcohol use: Yes Comment: social ??? Drug use: Never Types: Alcohol Comment: reports h/o alcohol abuse ~25 years ago. Reports ~0-3 drinks/week currently. FAMILY HISTORY: Family History Problem Relation Age of Onset ??? Heart disease Father ??? Arthritis Father ??? Cancer Father REVIEW OF SYSTEMS: Constitutional: Negative for chills, activity change and appetite change. HENT: Negative. Eyes: Negative. Respiratory: Negative. Cardiovascular: Negative. Gastrointestinal: Negative. Genitourinary: Negative. Musculoskeletal: Per HPI. Skin: Negative. Neurological: Negative. Psychiatric/Behavioral: Negative. PHYSICAL EXAM: Vitals: Height: Height: 191.8 cm (6' 3.5 ) Weight: Weight: 121.7 kg (268 lb 6.4 oz) BMI: Body mass index is 33.1 kg/m??. General: Awake, alert, oriented to person, place, and time. Affect is normal. Hearing is normal to the spoken word. Breathing is unlabored. Gait: mild limp Assistive device: none Right Knee: Skin intact Mild effusion no crepitus, no ttp at lateral patellar facet. Mild diffuse TTP Quad strength 5/5, abductor strenght 5/5 Painful, limited ROM from 0 to 115 Instability: 2mm of laxity at full extension, 5mm at 30 degrees of flexion Deformity:none Left Knee: Skin intact no effusion no crepitus no TTP Quad strength 5/5 Painless rom 0-135 Instability: none Deformity: none Extremities: Vascular: bilateral lower extremities with palpable dorsalis pedis pulse. Neurologic: Bilateral lower extremities have distal motor and sensory exam is grossly normal without appreciable deficit. Intact EHL, FHL, TA, GS. RADIOGRAPHS: Standing AP, lateral, Winn and Patellar views of the Right knee which were taken today and individually interpreted by myself today demonstrate well aligned well fixed Right total knee arthroplasty without signs of loosening fracture or subsidence. He does have regrowth of his lateral patellarfacet. Standing mechanical axis view demonstrates valgus alignment. IMPRESSION: Right painful total knee PLAN: We have obtained an ESR CRP as well as aspirated the painful knee today in the clinic. His mechanical axis view demonstrates valgus alignment. On his lateral radiograph his tibia is subluxated posteriorly. This combined with his mild varus valgus instability makes his only surgical option an all component revision arthroplasty. I would plan to use press fit persona components with a tibial cone. I followed up with the patient after the results of the fluid aspiration were obtained including no growth final and aerobic anaerobic cultures as well as 353 wbc's 25% PMNs. I discussed with him thatthis is not consistent with infection and I think his symptoms are coming from instability in addition to valgus limb malalignment. At the time of follow up on the phone he was actually feeling much better from using the brace as well as the fluid coming off the knee. He has been able to golf better than he has had over a year and a half. I discussed that there is certainly no who sure guarantee that a revision knee will make him better so if he is continuing to do better with conservative management I encouraged him to continue with this. He will let us know if his symptoms worsen but I did discuss with him that I do not think a liner upsize in the setting of his malalignment will solve his problem and I think he would be an all component revision .JOINT ASPIRATION Performed by: Catherine Gray MD Authorized by: Catherine Gray MD Joint Aspiration: Indications: Indications: Diagnostic evaluation Location: Body area: Knee Joint: Right knee Local anesthesia used?: No Procedure details: Prep: patient was prepped using a clean technique Needle size: 18 G Approach: Lateral Aspirate amount (ml): 45 Aspirate: Blood-tinged, serous and clear Catherine Gray MD Jewelry Sales Representative of Orthopaedic Surgery Adult Hip and Knee Reconstruction documented in this encounter Plan of Treatment Not on file documented as of this encounter Procedures Procedure Name Priority Date/Time Associated Diagnosis Comments MI ARTHROCENTESIS ASPIR&/INJ MAJOR JT/BURSA W/O US Routine 08/01/2021 8:00 AM CDT Right knee pain, unspecified chronicity documented in this encounter Results * Aerobic and anaerobic culture and gram stain Synovial fluid Knee, right (08/01/2021 7:10 PM CDT) Direct Specimen Exam Stain: Cytospin Gram stain shows: No polymorphonuclear leukocytes seen. No organisms seen. [facility] Report Final Report: [facility] Synovial fluid (Knee, right) 08/01/2021 7:10 PM CDT 08/01/2021 8:45 PM CDT Narrative JESSY RAO - 08/07/2021 10:17 AM CDT Testing performed by [facility] ([phone]) Specimens submitted from normally sterile body sites [...] interpretive data was last revised on 2019. Catherine Gray MD LAB MICROBIOLOGY - GEN ERAL ORDERABLES Final Result Performing Organization Address [facility]/ZIP Co de Phone Number [facility] [place] [address] * Crystal Analysis, Body Fluid (08/01/2021 6:38 PM CDT) Specimen type, fld Synovial [facility]ER [facility] Crystals None Seen None Seen [facility] Fluid 08/01/2021 6:38 PM CDT 08/01/2021 7:12 PM CDT Narrative [facility] - 08/01/2021 10:31 PM CDT Specify:->knee, right Catherine Gray MD LAB BODY FLUIDS AND ST OOLS ORDERABLES Final Result Performing Organization Address [facility] de Phone Number [facility] [place] [address] * (ABNORMAL) Cell count with reflex to differential, body fluid (08/01/2021 6:38 PM CDT) Specimen type, fld Synovial [facility] Color, fld Yellow [facility] Clarity, fld Cloudy(A) Clear [facility] Nucleated cells, fld 353 /cumm [facility] Comment: Interpretive Data Unless otherwise specified, the reference range and other method performance specifications have not been established for CSF/Body Fluid tests. ??The test results should be integrated into the clinical context for interpretation. Current interpretive data was last revised on 2018. RBC, fld 819 /cumm [facility]ER [facility] Fluid 08/01/2021 6:38 PM CDT 08/01/2021 7:12 PM CDT Narrative [facility]ERN[facility] - 08/01/2021 9:42 PM CDT Specify:->knee, right Catherine Gray MD LAB BODY FLUIDS AND ST OOLS ORDERABLES Final Result Performing Organization Address [facility] Co de Phone Number [facility] [place] [address] * XR Knee Right 4 or More Views (08/01/2021 8:25 AM CDT) Anatomical Region Laterality Modality Lower Extremities, Knee Right Computed Radiography 08/01/2021 8:32 AM CDT Impressions 08/01/2021 8:32 AM CDT 1. ??Unchanged right total knee arthroplasty in near-anatomic position. Electronically signed by: Diogo Suarez M.D. Narrative 08/01/2021 8:32 AM CDT EXAMINATION: Right knee 4 or more views. HISTORY: ??Right knee pain and arthroplasty follow-up FINDINGS: 4 views of the right knee including 3 views of both knees are submitted for interpretation and compared to prior 02/01/2021. There is unchanged right total knee arthroplasty in near-anatomic position. Small effusion is present without fracture. On the left, mild osteoarthritis is present. Procedure Note Diogo Suarez MD - 08/01/2021 EXAMINATION: Right knee 4 or more views. HISTORY: Right knee pain and arthroplasty follow-up FINDINGS: 4 views of the right knee including 3 views of both knees are submitted for interpretation and compared to prior 02/01/2021. There is unchanged right total knee arthroplasty in near-anatomic position. Small effusion is present without fracture. On the left, mild osteoarthritis is present. IMPRESSION: 1. Unchanged right total knee arthroplasty in near-anatomic position. Electronically signed by: Diogo Suarez M.D. us Catherine Gray MD IMG XR PROCEDURES Radha l Result * MI ARTHROCENTESIS ASPIR&/INJ MAJOR JT/BURSA W/O US (08/01/2021 8:00 AM CDT) Narrative Catherine Gray MD - 08/01/2021 8:00 AM CDT Catherine Gray MD ? 08/17/2021 ??3:11 PM JOINT ASPIRATION Performed by: Catherine Gray MD Authorized by: Catherine Gray MD Joint Aspiration: Indications: ??Indications: ??Diagnostic evaluation Location: ??Body area: ??Knee Joint: ??Right knee ??Local anesthesia used?: No ?? Procedure details: ??Prep: patient was prepped using a clean technique ?Needle size: ??18 G ??Approach: ??Lateral ??Aspirate amount (ml): ??45 ??Aspirate: ??Blood-tinged, serous and clear Catherine Gray MD IN CLINIC/BEDSIDE SHILA DAVIS Final Result documented in this encounter Visit Diagnoses Diagnosis Right knee pain, unspecified chronicity- Primary Aftercare following right knee joint replacement surgery Right knee pain, unspecified chronicity Right knee pain, unspecified chronicity documented in this encounter Discontinued Medications Medication Sig Discontinue Reason Start Date End Da te fluticasone propionate (FLONASE) 50 mcg/actuation nasal spray 2 sprays daily 05/15/2021 08/01/2021 docusate sodium (COLACE) 100 mg capsuleIndications:co nstipation Take 1 capsule (100 mg total) by mouth 2 (two) times a day as needed for constipation (while taking narcotics) 04/11/2021 08/01/2021 oxyCODONE (ROXICODONE) 5 mg immediate release tabletIndications:Ac n 1-2 tablets q4-6 hours PRN pain 04/11/2021 08/01/2021 documented as of this encounter Orders Outpatient Referral Count Last Ordered Date Fir st Ordered Date AMB REFERRAL TO ORTHOPEDIC RECON HIP/KNEE 1 08/01/2021 documented in this encounter Care Teams Appeals Examiner Relationship Specialty Start Date End Date Deshawn Talbert MD [address] [place] [address] PCP - General Internal Medicine 09/07/19 12/27/22 documented as of this encounter
--- OUTSIDE RECORDS SUMMARY | 2024-04-26 21:35 | XMS_ITS | Encounter Summary ---
Author Organization [facility] Address [address] [place] [address] Care Team Providers Care Health Safety Instructor Name Role Phone Deshawn Talbert MD Primary Care Provider [phone] Reason for Referral * Diagnostic Imaging (Routine) - Closed Specialty Diagnoses / Procedures Referred By [facility] Referred To Contact Diagnoses Right knee pain, unspecified chronicity Procedures XR Bone Length Study Catherine Gray MD Phone: tel: fax: [facility] Referral ID Status Reason Start Date Expiration Date Visits Re quested Visits Authorized [id number] Closed 08/01/2021 08/31/2022 1 1 * Diagnostic Imaging (Routine) - Closed Specialty Diagnoses / Procedures Referred By [facility] Referred To Contact Diagnoses Right knee pain, unspecified chronicity Procedures XR Knee Right 4 or More Views Catherine Gray MD Phone: tel: fax: [facility] Referral ID Status Reason Start Date Expiration Date Visits Re quested Visits Authorized [id number] Closed 07/13/2021 08/12/2022 1 1 Reason for Visit * Diagnostic Imaging (Routine) - Closed Specialty Diagnoses / Procedures Referred By [facility] Referred To Contact Diagnoses Right knee pain, unspecified chronicity Procedures XR Knee Right 4 or More Views Cahterine Gray MD Phone: tel: fax: [facility] Referral ID Status Reason Start Date Expiration Date Visits Re quested Visits Authorized [id number] Closed 07/13/2021 08/12/2022 1 1 Encounter Details Date Type Department Care Team (Latest Contact Info) Description 08/01/2021 8:12 AM CDT - 08/01/2021 11:59 PM CDT Hospital Encounter [facility] Medicine [address] [place] [address] Catherine Gray MD [address] [place] [address] Right knee pain, unspecified chronicity Discharge Disposition: [...] on file Legal Sex Male 7:48 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 SPECIALIST Gender Identity Male 04/10/2021 6:39 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 SPECIALIST Sexual Orientation Straight 03/15/2021 5: 03 PM 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 SPECIALIST 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 Not on file Not on file Not on file documented as of this encounter Medications at Time of Discharge acetaminophen ER (TYLENOL) 650 mg 8 hr tabletIndications :Arthritic Pain Take 2 tablets (1,300 mg total) by mouth 2 (two) times a day hydroCHLOROthiazi de (HYDRODIURIL) 25 mg tabletIndications :hypertension 1 tablet (25 mg total) 08/11/2019 lisinopriL (PRINIVIL,ZESTRIL ) 20 mg tablet 07/09/2019 multivitamin capsuleIndication s:Vitamin Deficiency Prevention Take 1 capsule by mouth every morning rosuvastatin (CRESTOR) 20 mg tabletIndications :hyperlipidemia Take 1 tablet (20 mg total) by mouth every morning 07/19/2019 documented as of this encounter Discharge Disposition Disposition Code Departure Means Destination Discharge to home or self care documented in this encounter Plan of Treatment Not on file documented as of this encounter Procedures Procedure Name Priority Date/Time Associated Diagnosis Comments XR BONE LENGTH STUDY Schedule Routine, Read Routine (OP Routine) 08/01/2021 9:52 AM CDT Right knee pain, unspecified chronicity XR KNEE RIGHT 4 OR MORE VIEWS Schedule Routine, Read Routine (OP Routine) 08/01/2021 8:25 AM CDT Right knee pain, unspecified chronicity documented in this encounter Results * XR Bone Length Study (08/01/2021 9:52 [...] IMG XR PROCEDURES Radha l Result * XR Knee Right 4 or More [...] position. Electronically signed by: Diogo Suarez M.D. Catherine Gray MD IMG XR PROCEDURES Radha l Result documented in this encounter Visit Diagnoses Diagnosis Right knee pain, unspecified chronicity documented in this encounter Care Teams Health Safety Instructor Relationship Specialty Start Date End Date Deshawn Talbert MD [address] [place] [address] PCP - General Internal Medicine 09/07/19 12/27/22 documented as of this encounter
--- OUTSIDE RECORDS SUMMARY | 2024-04-26 21:35 | XMS_ITS | Encounter Summary ---
Author Organization [facility] [employer] [facility] Address [address] [place] [address] Phone Care Team Providers Care Compliance Director Name Role Phone Deshawn Talbert MD Primary Care Provider [phone] [phone] Reason for Referral * Consultation (Routine) - Closed Specialty Diagnoses / Procedures Referred By Carlita love Referred To Contact Orthopedic Surgery Diagnoses Right knee pain, unspecified chronicity Jake Frias MD [address] [place] [address] Phone: tel: fax: [facility] (All Locations) Referral ID Status Reason Start Date Expiration Date V isits Requested Visits Authorized [id number] Closed Specialty Services Required 07/10/2021 08/09/2022 1 1 Question Answer Please select the performing region: [facility] (All Locations) [167] # of visits: [address] Palacios for pain and effusions from right TKA LES POURER Reason for Visit * Reason Comments Post-op Encounter Details Date Type Department Care Team (Late st Contact Info) Description 07/10/2021 8:20 AM CANDLES POURER Office Visit [facility] Orthopaedic Surgery [address] [facility] 2[address] [place] [address] Jake Frias MD [address] [place] [address] Right knee pain, unspecified chronicity (Primary Dx) Social History Tobacco Use Types Packs/Day Years Used Date Smoking Tobacco: Never Smokeless Tobacco: Never Alcohol Use Standard Drinks/Week Comments Yes 0 (1 standard drink = 0.6 oz pur e alcohol) social AUDIT-C Answer Date Recorded Q1: How often do you have a drink containing alc ohol? 2-4 times a month 03/14/2021 Q2: How many drinks containi ng alcohol do you have on a typical day when you are drinking? 1 or 2 03/14/2021 Q3: How often do you have si x or more drinks on one occasion? 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 Pain has been well-controlled. He is doing very well with regards to his right elbow. He is very happy and has decreased pain and no paresthesias. He is return to the golf course and is able to play without pain. He is complaining today about recurrent effusions in the right knee he had a right total knee arthroplasty year and a half ago. He was told that it is not infected after an aspiration of 40 cc. PHYSICAL EXAMINATION No acute distress, alert and oriented X 3. Incision healing is noted with no sign of infection. He can extend to 20?? short of full extension and flex to 120?? he has 80?? of supination and 80?? of pronation. Distal motor and sensory function is normal. REVIEW OF X-RAYS/STUDIES No new studies IMPRESSION/DIAGNOSIS Doing well in early postoperative management from the aforementioned procedure TREATMENT/PLAN We will continue with routine postoperative rehabilitation. He has no restrictions with regards to his right elbow. He is doing very well he is tight and flexion some what but he is okay with this and very happy with his results. He is concerned about his right knee as a my with his recurrent effusions. I am going to refer him to 1 of my partners, Lissa Gray, for evaluation. We reviewed precautions and they voiced understanding. All questions were answered today. FOLLOW UP P.r.n. Jake Frias MD Base Brander of Orthopedic Surgery Shoulder and Elbow Service [facility] Dr. Mychal Frias dictating using Fluency Direct. Automotive Parts Specialist variances may occur. LES POURER documented in this encounter Plan of Treatment Scheduled Referrals Name Type Priority Associated Diagnoses Orde r Schedule Ambulatory referral to Orthopedic Recon Hip/Knee Outpatient Referral Routine Right knee pain, unspecified chronicity Expected: 07/24/2021 (Approximate), Expires: 07/10/2022 documented as of this encounter Visit Diagnoses Diagnosis Right knee pain, unspecified chronicity- Primary documented in this encounter Historical Medications * This list may reflect changes made after this encounter. fluticasone propionate (FLONASE) 50 mcg/actuation nasal spray 2 sprays daily 05/15/2021 08/01/2021 added in this encounter Additional Health Concerns Infection Onset Date Last Indicated Resolved Time COVID: Recovered Comment:Added based on recent COVID infection. 03/31/2021 04/03/2021 07/29/2021 3:05 AM C DT documented as of this encounter Care Teams Compliance Director Relationship Specialty Start Date End Date Deshawn Talbert MD [address] [place] [address] PCP - General Internal Medicine 09/07/19 12/27/22 documented as of this encounter
--- OUTSIDE RECORDS SUMMARY | 2024-04-26 21:35 | XMS_ITS | Encounter Summary ---
Author Organization [facility] Address [address] [place] [address] Phone Care Team Providers Care City Manager Name Role Phone Deshawn Talbert MD Primary Care Provider [phone] [phone] Encounter Details Date Type Department Care Team (Late st Contact Info) Description 07/11/2021 Telephone [facility] Orthopaedic Surgery [facility] Medical Office Building [address] [place] [address] Catherine Gray MD [facility]8 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 Gray. LMOV with direct number to call back. ESS SAFETY ENGINEERING TECHNOLOGIST documented in this encounter Plan of Treatment Not on file documented as of this encounter Visit Diagnoses Not on filedocumented in this encounter Additional Health Concerns Infection Onset Date Last Indicated Resolved Time COVID: Recovered Comment:Added based on recent COVID infection. 03/31/2021 04/03/2021 07/29/2021 3:05 AM C DT documented as of this encounter Care Teams City Manager Relationship Specialty Start Date End Date Deshawn Talbert MD [address] [place] [address] PCP - General Internal Medicine 09/07/19 12/27/22 documented as of this encounter
--- OUTSIDE RECORDS SUMMARY | 2024-04-26 21:35 | XMS_ITS | Encounter Summary ---
Author Organization [facility] Address [address] [place] [address] Phone Care Team Providers Care Bottom Presser Name Role Phone Deshawn Talbert MD Primary Care Provider [phone] [phone] Reason for Visit * Reason Comments Follow-up Encounter Details Date Type Department Care Team (Late st Contact Info) Description 05/29/2021 8:20 AM ELASTIC CUTTER Office Visit [facility] Orthopaedic Surgery [address] 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 Pain has been well-controlled. He has been working with physical therapy on his motion. PHYSICAL EXAMINATION No acute distress, alert and oriented X 3. Incision healing is noted with no sign of infection. He can flex to 120?? and extend to 15?? short of full extension. He has 80?? of pronation and 80?? of supination.. Distal motor and sensory function is normal. REVIEW OF X-RAYS/STUDIES No new studies IMPRESSION/DIAGNOSIS Doing well in early postoperative med TREATMENT/PLAN We will continue with routine postoperative rehabilitation. He feels like he has maximized his physical therapy and is able to do everything at home. He is going to continue his home exercise programto work on stretching of the right elbow as well as strength. We reviewed precautions and they voiced understanding. All questions were answered today. He is very happy with his progress. FOLLOW UP Six weeks Jake Frias MD Blast Furnace Keeper of Orthopedic Surgery Shoulder and Elbow Service [facility] Orthopedics [facility] Dr. Mychal Frias dictating using Fluency Direct. Pan Devulcanizer Helper variances may occur. TIC CUTTER documented in this encounter Plan of Treatment Not on file documented as of this encounter Visit Diagnoses Diagnosis Synovitis of elbow- Primary Other synovitis and tenosynovitis documented in this encounter Additional Health Concerns Infection Onset Date Last Indicated Resolved Time COVID: Recovered Comment:Added based on recent COVID infection. 03/31/2021 04/03/2021 07/29/2021 3:05 AM C DT documented as of this encounter Care Teams Bottom Presser Relationship Specialty Start Date End Date Deshawn Talbert MD [address] [place] [address] PCP - General Internal Medicine 09/07/19 12/27/22 documented as of this encounter
--- OUTSIDE RECORDS SUMMARY | 2024-04-26 21:38 | XMS_ITS | Encounter Summary ---
Author Organization [facility] Address [address] [facility] [address] [facility] [address] [place] [address] Care Team Providers Care Soft Metals Engraver Hand Name Role Phone Deshawn Talbert MD Primary Care Provider [phone] [phone] Reason for Visit * Reason Onset Date Comments Covid-19 Home Monitoring 03/21/2021 Encounter Details Date Type Department Care Team (Late st Contact Info) Description 03/21/2021 Telephone [facility] Accountable Care Organization [address] [place] [address] Lashaun Mcmahan, [address] [place] [address] Covid-19 Home Monitoring Social History Tobacco Use Types Packs/Day Years [...] on file Legal Sex Male 7:48 AM CERTIFIED MASTER LOCKSMITH Gender Identity Male 04/10/2021 6:39 AM CERTIFIED MASTER LOCKSMITH Sexual Orientation Straight 03/15/2021 5: 03 PM CERTIFIED MASTER LOCKSMITH 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 By saving a note using this template, the patient will drop off our home monitoring candidate reports for two weeks. If we still consider them to have an active case of COVID-19 at that time, we willreevaluate them for home monitoring. IFIED MASTER LOCKSMITH documented in this encounter Plan of Treatment Not on file documented as of this encounter Visit Diagnoses Not on filedocumented in this encounter Additional Health Concerns Infection Onset Date Last Indicated Resolved Time COVID19 03/17/2021 03/17/2021 03/31/2021 3:05 AM CERTIFIED MASTER LOCKSMITH documented as of this encounter Care Teams Soft Metals Engraver Hand Relationship Specialty Start Date End Date Deshawn Talbert MD [address] [place] [address] PCP - General Internal Medicine 09/07/19 12/27/22 documented as of this encounter
--- OUTSIDE RECORDS SUMMARY | 2024-04-26 21:38 | XMS_ITS | Encounter Summary ---
Author Organization [facility] Address [address] [place] [address] Care Team Providers Care Chip Washer Name Role Phone Deshawn Talbert MD Primary Care Provider [phone] [phone] Encounter Details Date Type Department Care Team (Late st Contact Info) Description 10/10/2020 Telephone [facility] Orthopedics and Sports Medicine [address] [place] [phone] Dougie Loera MD [address] [place] [address] [address] [place] [address] Social History Tobacco Use Types Packs/Day Years Used Date Smoking Tobacco: Never Alcohol Use Standard Drinks/Week Comments Yes 0 (1 standard drink = 0.6 oz pur e alcohol) social Sex and Gender Information Value Date Recorded Sex Assigned at Not on file Legal Sex Male 7:48 AM BOARD WORKER Gender Identity Male 04/10/2021 6:39 AM BOARD WORKER Sexual Orientation Straight 03/15/2021 5: 03 PM BOARD WORKER 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 Pt notified of results, recommends cutting back on the golf for at least 2 to 3 weeks. Pt verbalizes understanding,jls gear cutting machine set up operator ortho documented in this encounter Plan of Treatment Not on file documented as of this encounter Visit Diagnoses Not on filedocumented in this encounter Care Teams Chip Washer Relationship Specialty Start Date End Date Deshawn Talbert MD [address] [place] [address] PCP - General Internal Medicine 09/07/19 12/27/22 documented as of this encounter
--- OUTSIDE RECORDS SUMMARY | 2024-04-26 21:38 | XMS_ITS | Encounter Summary ---
Author Organization [facility] Address [address] [place] [address] Care Team Providers Care Aircraft Structural Fitter Name Role Phone Deshawn Talbert MD Primary Care Provider [phone] [phone] Encounter Details Date Type Department Care Team (Late st Contact Info) Description 03/17/2021 3:45 PM INTEGRATION TECHNICIAN Lab [address] [address] Social History Tobacco Use Types Packs/Day Years [...] on file Legal Sex Male 7:48 AM INTEGRATION TECHNICIAN Gender Identity Male 04/10/2021 6:39 AM INTEGRATION TECHNICIAN Sexual Orientation Straight 03/15/2021 5: 03 PM INTEGRATION TECHNICIAN 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 Please notify patient of positive COVID-19 test. If he/she develops increased shortness of breath or worsening symptoms, he/she should go to the ER. Patient should isolate for 10 days from symptoms onset and be fever free for at least 24 hours prior to ending quarantine/isolation. Patient should notify individuals they may have had contact with while ill and 2 days prior to symptom onset. GRATION TECHNICIAN documented in this encounter Plan of Treatment Not on file documented as of this encounter Procedures Procedure Name Priority Date/Time Associated Diagnosis Comments COVID-19 CORONAVIRUS RNA Routine 03/17/2021 11:48 AM INTEGRATION TECHNICIAN documented in this encounter Results * (ABNORMAL) COVID-19 Coronavirus RNA Nasopharyngeal (03/17/2021 11:48 AM INTEGRATION TECHNICIAN) COVID-19 RNA Presumptive Positive(A) JESSY Comment: Presumptive positive results are reported when only one of multiple gene targets tests positive; this result is final and should be interpreted as a positive test result. The most common cause for this is the presence of SARS-CoV-2 near or below the limit of detection of the test, but this could also be attributed to detection of a different sarbecovirus. Interpretive Data Synonyms for this test include: PCR and NAAT . ??Testing performed by the [facility] Molecular Infectious Disease Laboratory. The 2019-Novel Coronavirus Assay (COVID-19) Real Time RT-PCR assay is for in vitro diagnostic use under FDA emergency use authorization only. A negative RT-PCR result does not preclude infection with COVID-19 and should not be used as the sole basis for treatment or other patient management decisions. ??Additional sample types have been validated according to CLIA regulations. ?? Current Interpretive Data was last revised on June 09, 2020. Testing performed by: [facility], [address] [place]., [address] First COVID-19 test? No CERNER CH Comment:Testing performed by : [facility], [address] [facility], [address] Employeed in healthcare? No CERNER CH Comment:Testing performed by : [facility], [address] [facility], [address] status? No CERNER CH Comment:Testing performed by : [facility], [address] [facility], [address] Group care resident? No CERNER CH Comment:Testing performed by : [facility], [address] [facility], [address] Hospitalized? No CERNER CH Comment:Testing performed by : [facility], [address] [place] [address], [id number] Is patient in ICU? No CERNER CH Comment:Testing performed by : [facility], [address] [facility], [address] Symptomatic as defined by CDC? No CERNER CH Comment:Testing performed by : [facility], [address] [place] [address], [id number] Nasopharyngeal 03/17/2021 11 :48 AM INTEGRATION TECHNICIAN 03/18/2021 12:02 AM INTEGRATION TECHNICIAN Shameka Vivas LAMINATOR PREFORMS LAB MICROBIOLOGY - GENERAL ORD ERABLES Final Result JESSY [id number] Department [place] [address] documented in this encounter Visit Diagnoses Not on filedocumented in this encounter Care Teams Aircraft Structural Fitter Relationship Specialty Start Date End Date Deshawn Talbert MD [address] [place] [address] PCP - General Internal Medicine 09/07/19 12/27/22 documented as of this encounter
--- OUTSIDE RECORDS SUMMARY | 2024-04-26 21:38 | XMS_ITS | Encounter Summary ---
Author Organization [facility] Address [address] [facility] [address] [place] [address] Care Team Providers Care Rib Chopper Name Role Phone Deshawn Talbert MD Primary Care Provider [phone] [phone] Encounter Details Date Type Department Care Team (Late st Contact Info) Description 03/17/2021 Orders Only [facility] Testing Site - [address] [place] [address] Jake Frias MD [address] [facility] [address] [place] [address] Pre-procedure lab exam (Primary Dx) Social History Tobacco Use Types [...] on file Legal Sex Male 7:48 AM PLANT ANATOMY TEACHER Gender Identity Male 04/10/2021 6:39 AM PLANT ANATOMY TEACHER Sexual Orientation Straight 03/15/2021 5: 03 PM PLANT ANATOMY TEACHER 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 Date of Px/chemo/treatment/placement/transfer 03/21/2021 ?? Testing site patient will be sent to: [place], [place] ?? Date testing requested: 03/18/2021 ?? Testing: COVID-19 RNA ?? Does the patient currently work in a healthcare facility with direct patient contact? No ?? Is the patient a resident of a congregate care or living setting? No T ANATOMY TEACHER documented in this encounter Plan of Treatment Not on file documented as of this encounter Visit Diagnoses Diagnosis Pre-procedure lab exam- Primary Pre-procedural laboratory examination documented in this encounter Care Teams Rib Chopper Relationship Specialty Start Date End Date Deshawn Talbert MD [address] [place] [address] PCP - General Internal Medicine 09/07/19 12/27/22 documented as of this encounter
--- OUTSIDE RECORDS SUMMARY | 2024-04-26 21:38 | XMS_ITS | Encounter Summary ---
Author Organization [facility] Healthcare Address [address] [place] [address] Care Team Providers Care White Sugar Supervisor Name Role Phone Deshawn Talbert MD Primary Care Provider [phone] Reason for Referral * Diagnostic Imaging (Routine) - Closed Specialty Diagnoses / Procedures Referred By Contac t Referred To Contact Diagnoses Status post total right knee replacement Procedures XR Knee Right 1 or 2 Views Dougie Loera MD [address] [place] [address] DR FRANKLIN [address] [place] [address] Phone: tel: fax: [address] [phone] Referral ID Status Reason Start Date Expiration Date Visits Re quested Visits Authorized [id number] Closed 10/04/2020 11/03/2021 1 1 Encounter Details Date Type Department Care Team (Late st Contact Info) Description 10/05/2020 9:33 AM CDT Hospital Encounter [facility] Dougie Loera MD [address] [place] [address] DR FRANKLIN [address] [place] [phone] Status post total right knee replacement Social History Tobacco Use Types Packs/Day Years Used Date Smoking Tobacco: Never Alcohol Use Standard Drinks/Week Comments Yes 0 (1 standard drink = 0.6 oz pur e alcohol) social Sex and Gender Information Value Date Recorded Sex Assigned at Not on file Legal Sex Male 7:48 AM TUTOR Gender Identity Male 04/10/2021 6:39 AM TUTOR Sexual Orientation Straight 03/15/2021 5: 03 PM TUTOR 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 Not on file Not on file Not on file documented as of this encounter Medications at Time of Discharge hydroCHLOROthiazi de (HYDRODIURIL) 25 mg tabletIndications :hypertension 1 tablet (25 mg total) 08/11/2019 lisinopriL (PRINIVIL,ZESTRIL ) 20 mg tablet 07/09/2019 rosuvastatin (CRESTOR) 20 mg tabletIndications :hyperlipidemia Take 1 tablet (20 mg total) by mouth every morning 07/19/2019 meloxicam (MOBIC) 15 mg tablet Take 15 mg by mouth every morning 07/09/2019 04/11/2021 metoclopramide (REGLAN) 10 mg tablet TAKE 1 TABLET BY MOUTH EVERY 6 HOURS TAKE 30 MINUTES BEFORE MEALS AND AT BEDTIME 04/01/2020 03/14/2021 documented as of this encounter Plan of Treatment Not on file documented as of this encounter Procedures Procedure Name Priority Date/Time Associated Diagnosis Comments XR KNEE RIGHT 1 OR 2 VIEWS Schedule Routine, Read Routine (OP Routine) 10/05/2020 9:34 AM CDT Status post total right knee replacement documented in this encounter Results * XR Knee Right 1 or 2 Views (10/05/2020 9:34 AM CDT) Anatomical Region Laterality Modality Lower Extremities, Knee Right Radiogra [facility] Imaging 10/05/2020 12:1 2 PM CDT Narrative 10/05/2020 12:13 PM CDT Patient Name: COOKIE MAHMOOD ?Ordering Dr: Dougie Loera MD ?? D.O.B: 1960 ? Exam Date: 10/05/ ?? 0934 ?? Age: 59 ?Sex: Male ? MR#: [id number] ?? Loc: ? RADIOLOGY REPORT ?? Order #[id number] ?? Radiology ? Knee RT 1 or 2 View (Special) ? Signed ?? EXAM DESCRIPTION: ?? Knee RT 1 or 2 View (Special) ? REASON FOR STUDY: ?? Right knee pain. ? COMPARISON: ?? Right knee x-ray from 02/26/2020 ? FINDINGS: ?Two views of the right knee are reviewed. ??These images reveal a cemented, 3 ?? compartment total knee arthroplasty. ??The implanted components are well ?? aligned and appear well fixed. ??There is no evidence of mechanical loosening ?? or wear. ??No fractures or dislocations are seen. ??A joint effusion is present. ?Compared to previous x-rays there is no change. ? IMPRESSION: ?? Joint effusion, otherwise negative right total knee replacement. ? THIS IS AN ELECTRONICALLY VERIFIED FINAL REPORT ?? 10/05/2020 12:13 PM - Electronically signed by Dougie Loera ?? Dougie Loera ? SH ?? D: ??10/05/2020 12:13 PM ?? T: ? Report ID: [id number] ?? Reading Location: ??[id number] ? REPORT ELECTRONICALLY SIGNED IN OTHER VENDOR SYSTEM ?? Resulting Agency Comment O Procedure Note Dougie Loera MD - 10/05/2020 Patient Name: TIMOTEOCOOKIERONALD Fisher Dr: Dougie Loera MD D.O.B: 1960 Exam Date: 10/05/20933 Age: 59 Sex: Male MR#: [id number] Loc: RADIOLOGY REPORT Order #[id number] Radiology Knee RT 1 or 2 View (Special) Signed EXAM DESCRIPTION: Knee RT 1 or 2 View (Special) REASON FOR STUDY: Right knee pain. COMPARISON: Right knee x-ray from 02/26/2020 FINDINGS: Two views of the right knee are reviewed. These images reveal acemented, 3 compartment total knee arthroplasty. The implanted components are well aligned and appear well fixed. There is no evidence of mechanicalloosening or wear. No fractures or dislocations are seen. A joint effusion ispresent. Compared to previous x-rays there is no change. IMPRESSION: Joint effusion, otherwise negative right total kneereplacement. THIS IS AN ELECTRONICALLY VERIFIED FINAL REPORT 10/05/2020 12:13 PM - Electronically signed by Dougie Loera T: Report ID: [id number] Reading Location: [id number] REPORT ELECTRONICALLY SIGNED IN OTHER VENDOR SYSTEM us Dougie Loera MD IMG XR PROCEDURES Final Resu lt documented in this encounter Visit Diagnoses Diagnosis Status post total right knee replacement documented in this encounter Care Teams White Sugar Supervisor Relationship Specialty Start Date End Date Deshawn Talbert MD [address] [place] [address] PCP - General Internal Medicine 09/07/19 12/27/22 documented as of this encounter
--- OUTSIDE RECORDS SUMMARY | 2024-04-26 21:38 | XMS_ITS | Encounter Summary ---
Author Organization [facility] Address [address] [address] Care Team Providers Care Chain Maker Loom Control Name Role Phone Deshawn Talbert MD Primary Care Provider [phone] Reason for Referral * Diagnostic Imaging (Routine) - Closed Specialty Diagnoses / Procedures Referred By Contac t Referred To Contact Diagnoses Status post total right knee replacement Procedures XR Knee Right 1 or 2 Views Dougie Loera MD [address] [place] [address] DR FRANKLIN [address] [place] [address] Phone: tel: fax: [address] [phone] Referral ID Status Reason Start Date Expiration Date Visits Re quested Visits Authorized [id number] Closed 10/04/2020 11/03/2021 1 1 Encounter Details Date Type Department Care Team (Late st Contact Info) Description 10/04/2020 Orders Only [facility] Orthopedics and Sports Medicine [address] [place] [phone] Dougie Loera MD [address] [place] [address] DR FRANKLIN [address] [place] [phone] Status post total right knee replacement (Primary Dx) Social History Tobacco Use Types Packs/Day Years Used Date Smoking Tobacco: Never Alcohol Use Standard Drinks/Week Comments Yes 0 (1 standard drink = 0.6 oz pur e alcohol) social Sex and Gender Information Value Date Recorded Sex Assigned at Not on file Legal Sex Male 7:48 AM MISCELLANEOUS MACHINE OPERATOR Gender Identity Male 04/10/2021 6:39 AM MISCELLANEOUS MACHINE OPERATOR Sexual Orientation Straight 03/15/2021 5: 03 PM MISCELLANEOUS MACHINE OPERATOR 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 D.O.B: 1960 ? Exam Date: 10/05/20 ?? 0934 ?? Age: 59 ?Sex: Male ? MR#: [id number] ?? Loc: ? RADIOLOGY REPORT ?? Order #[id number] ?? Radiology ? Knee RT 1 or [...] 12:13 PM ?? T: ? Report ID: [id number] ?? Reading Location: ??[id number] ? REPORT ELECTRONICALLY SIGNED IN OTHER VENDOR SYSTEM ?? Resulting Agency Comment O Procedure Note Dougie Loera MD - 10/05/2020 Patient Name: NEREIDA MAHMOODRONALD Fisher Dr: Dougie Loera MD D.O.B: 1960 Exam Date: 10/05/20933 Age: 59 Sex: Male MR#: [id number] Loc: RADIOLOGY REPORT Order #[id number] Radiology Knee RT 1 or 2 View [...] signed by Dougie Loera T: Report ID: [id number] Reading Location: [place] [address] REPORT ELECTRONICALLY SIGNED IN OTHER VENDOR SYSTEM Dougie Loera MD IMG XR PROCEDURES Final Resu lt documented in this encounter Visit Diagnoses Diagnosis Status post total right knee replacement- Primary Status post total right knee replacement documented in this encounter Care Teams Chain Maker Loom Control Relationship Specialty Start Date End Date Deshawn Talbert MD [address] [place] [address] PCP - General Internal Medicine 09/07/19 12/27/22 documented as of this encounter
--- OUTSIDE RECORDS SUMMARY | 2024-04-26 21:38 | XMS_ITS | Encounter Summary ---
Author Organization [facility] Address [address] [place] [address] Care Team Providers Care Electronic Plotting System Operator Name Role Phone Deshawn Talbert MD Primary Care Provider [phone] Reason for Visit * Reason Comments Immunizations flu immuniztion Encounter Details Date Type Department Care Team (Late st Contact Info) Description 03/17/2021 5:00 PM PIPE COVERING MOLDER Immunization 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 N95 mask, gown, gloves, and eye protection worn during swab collection. Patient instructed to self-isolate from time of swab collection until scheduled surgery. COVERING MOLDER documented in this encounter Miscellaneous Notes * Addendum Note - Yoly Rodriguez MA - 03/17/2021 5:00 PM CSTAddended by: YOLY RODRIGUEZ on: 03/17/2021 11:48 AM Modules accepted: Orders COVERING MOLDER documented in this encounter Plan of Treatment Not on file documented as of this encounter Visit Diagnoses Diagnosis Encounter for immunization- Primary Pre-op testing Unspecified pre-operative examination documented in this encounter Orders Immunization/Injection Count Last Ordered Date First Ordered Date FLU VACCINE QUAD PF 6M+ IM - FLUARIX / FLULAVAL / FLUZONE- SYRINGE 1 03/17/2021 documented in this encounter Care Teams Electronic Plotting System Operator Relationship Specialty Start Date End Date Deshawn Talbert MD [address] [place] [address] PCP - General Internal Medicine 09/07/19 12/27/22 documented as of this encounter
--- OUTSIDE RECORDS SUMMARY | 2024-04-26 21:38 | XMS_ITS | Encounter Summary ---
Author Organization [facility] Address [address] [place] [address] Care Team Providers Care English Horn Player Name Role Phone Deshawn Talbert MD Primary Care Provider [phone] Reason for Referral * Diagnostic Imaging (Routine) - Closed Specialty Diagnoses / Procedures Referred By Contac t Referred To Contact Diagnoses Pain in joint, multiple sites Procedures XR Elbow Right 3 or More Views Deshawn Talbert MD [address] [place] [address] Phone: tel: fax: [address] [phone] Referral ID Status Reason Start Date Expiration Date Visits Re quested Visits Authorized [id number] Closed 01/30/2021 03/01/2022 1 1 * Diagnostic Imaging (Routine) - Closed Specialty Diagnoses / Procedures Referred By Contac t Referred To Contact Diagnoses Pain in joint, multiple sites Procedures XR Hand Right 3 or More Views Deshawn Talbert MD [address] [place] [address] Phone: tel: fax: [address] [phone] Referral ID Status Reason Start Date Expiration Date Visits Re quested Visits Authorized [id number] Closed 01/30/2021 03/01/2022 1 1 * Diagnostic Imaging (Routine) - Closed Specialty Diagnoses / Procedures Referred By Carlita t Referred To Contact Diagnoses Pain in joint, multiple sites Procedures XR Hand Left 3 or More Views Deshawn Talbert MD [address] [place] [id number] Phone: tel: fax: [address] [phone] Referral ID Status Reason Start Date Expiration Date Visits Re quested Visits Authorized [id number] Closed 01/30/2021 03/01/2022 1 1 * Diagnostic Imaging (Routine) - Closed Specialty Diagnoses / Procedures Referred By Carlita t Referred To Contact Diagnoses Pain in joint, multiple sites Procedures XR Elbow Left 3 or More Views Deshawn Talbert MD [address] [place] [address] Phone: tel: fax: [address] [phone] Referral ID Status Reason Start Date Expiration Date Visits Re quested Visits Authorized [id number] Closed 01/30/2021 03/01/2022 1 1 * Diagnostic Imaging (Routine) - Closed Specialty Diagnoses / Procedures Referred By Carlita t Referred To Contact Diagnoses Joint pain Procedures XR Shoulder Right 2 or More Views Deshawn Talbert MD [address] [place] [id number] Phone: tel: fax: [address] [phone] Referral ID Status Reason Start Date Expiration Date Visits Re quested Visits Authorized [id number] Closed 01/30/2021 03/01/2022 1 1 * Diagnostic Imaging (Routine) - Closed Specialty Diagnoses / Procedures Referred By Carlita love Referred To Contact Diagnoses Pain in joint, multiple sites Procedures XR Shoulder Left 2 or More Views Deshawn Talbert MD [address] [place] [address] Phone: tel: fax: [address] [phone] Referral ID Status Reason Start Date Expiration Date Visits Re quested Visits Authorized [id number] Closed 01/30/2021 03/01/2022 1 1 Reason for Visit * Diagnostic Imaging (Routine) - Closed Specialty Diagnoses / Procedures Referred By Carlita love Referred To Contact Diagnoses Pain in joint, multiple sites Procedures XR Elbow Right 3 or More Views Deshawn Talbert MD [address] [place] [address] Phone: tel: fax: [address] [phone] Referral ID Status Reason Start Date Expiration Date Visits Re quested Visits Authorized [id number] Closed 01/30/2021 03/01/2022 1 1 Encounter Details Date Type Department Care Team (Latest Contact Info) Description 02/01/2021 8:41 AM CDT - 02/01/2021 11:59 PM CDT Hospital Encounter [facility] [place], [place] [id number] Pain in joint, multiple sites; Joint pain Discharge Disposition: Discharge to home or self care Social History Tobacco Use Types Packs/Day Years Used Date Smoking Tobacco: Never Alcohol Use Standard Drinks/Week Comments Yes 0 (1 standard drink = 0.6 oz pur e alcohol) social Sex and Gender Information Value Date Recorded Sex Assigned at Not on file Legal Sex 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[employer] Gender Identity Male 04/10/2021 6:39 AM 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 Sexual Orientation Straight 03/15/2021 5: 03 PM 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 [employer] 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 on file Not on file Not [...] 04/01/2020 03/14/2021 documented as of this encounter Discharge Disposition Disposition Code Departure Means Destination Discharge to home or self care documented in this encounter Plan of Treatment Not on file documented as of this encounter Procedures Procedure Name Priority Date/Time Associated Diagnosis Comments XR HIPS BILATERAL 2 VIEWS Schedule Routine, Read Routine (OP Routine) 02/01/2021 9:20 AM CDT Pain in joint, multiple sites XR HAND RIGHT 3 OR MORE VIEWS Schedule Routine, Read Routine (OP Routine) 02/01/2021 9:20 AM CDT Pain in joint, multiple sites XR HAND LEFT 3 OR MORE VIEWS Schedule Routine, Read Routine (OP Routine) 02/01/2021 9:20 AM CDT Pain in joint, multiple sites XR ELBOW RIGHT 3 OR MORE VIEWS Schedule Routine, Read Routine (OP Routine) 02/01/2021 9:20 AM CDT Pain in joint, multiple sites XR ELBOW LEFT 3 OR MORE VIEWS Schedule Routine, Read Routine (OP Routine) 02/01/2021 9:20 AM CDT Pain in joint, multiple sites XR SHOULDER RIGHT 2 OR MORE VIEWS Schedule Routine, Read Routine (OP Routine) 02/01/2021 9:20 AM CDT Joint pain XR SHOULDER LEFT 2 OR MORE VIEWS Schedule Routine, Read Routine (OP Routine) 02/01/2021 9:20 AM CDT Pain in joint, multiple sites documented in this encounter Results * XR Elbow Right 3 or More Views (02/01/2021 9:20 AM CDT) Anatomical Region Laterality Modality Upper Extremities, Elbow Right Compute d Radiography 02/01/2021 8:45 PM CDT Narrative 02/01/2021 8:54 PM CDT EXAM DESCRIPTION: ?? 1. ??XR HAND RIGHT 3 OR MORE VIEWS; 2. ??XR ELBOW LEFT 3 OR MORE VIEWS; 3. ??XR HAND LEFT 3 OR MORE VIEWS; 4. ??XR ELBOW RIGHT 3 OR MORE VIEWS; 5. ??XR HIPS BILATERAL 2 VIEWS; 6. ??XR SHOULDER RIGHT 2 OR MORE VIEWS; 7. ??XR SHOULDER LEFT 2 OR MORE VIEWS REASON FOR STUDY: ?? 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 TECHNIQUE: ??Two views each hip, three views each hand, three views each elbow, and three views each shoulder submitted without comparison. FINDINGS: Left shoulder: There are no erosions. ??There are no fractures. ??Alignment is normal. ??There is mild glenohumeral and acromioclavicular joint osteoarthritis. Right shoulder: There are no fractures. ??Alignment is normal. ??There are no erosions. ??There is mild glenohumeral and acromioclavicular joint osteoarthritis. Left hand: Lunate erosion is present. ??There is mild distal radioulnar and basal thumb joint osteoarthritis. ??There are no fractures. ??There is no dorsal wrist soft tissue swelling. ??Dorsal wrist calcifications may be vascular. Right hand: There are no erosions. ??There are no fractures. ??There is mild widening of the scapholunate interval. ??Radiocarpal joint osteoarthritis is present with loose bodies. ??Distal interphalangeal joint osteoarthritis is present. ??There is no dorsal wrist soft tissue swelling. Hips: There are no erosions. ??There are no fractures. ??There is mild bilateral hip osteoarthritis with deficient femoral head neck junction offset. Left elbow: There are no erosions. ??There are no fractures. ??There is lfja-pf-enxcmvtu tricompartmental left elbow osteoarthritis with multiple loose bodies in the olecranon and coronoid fossa is. ??There is no effusion. Right elbow: There are no erosions. ??There are no fractures. ??There is shnb-la-hvfzsgyz tricompartmental right elbow osteoarthritis with multiple loose bodies. ??There are no effusions. IMPRESSION: ?? 1. ??Nonspecific left lunate erosion. ??No other radiographic evidence of inflammatory arthritis. 2. ??Mild bilateral glenohumeral and acromioclavicular joint osteoarthritis. 3. ??Mild polyarticular left wrist osteoarthritis. 4. ??Widening of the right scapholunate interval with right radiocarpal joint osteoarthritis and multiple loose bodies. 5. ??Mild bilateral hip osteoarthritis. 6. ??Vxyj-sm-lmhepywu tricompartmental bilateral knee osteoarthritis with multiple loose bodies, which may result in a mechanical block to flexion/extension. THIS IS AN ELECTRONICALLY VERIFIED FINAL REPORT 02/01/2021 8:54 PM - Electronically signed by Washington Cavazos M.D. D: ??02/01/2021 8:54 PM T: Report ID: [id number] Reading Location: ??[id number] Procedure Note Washington Cavazos MD - 02/01/2021 EXAM DESCRIPTION: 1. XR HAND RIGHT 3 OR MORE VIEWS; 2. XR ELBOW LEFT 3 OR MORE VIEWS; 3. XR HAND LEFT 3 OR MORE VIEWS; 4. XR ELBOW RIGHT 3 OR MORE VIEWS; 5. XR HIPS BILATERAL 2 VIEWS; 6. XR SHOULDER RIGHT 2 OR MORE VIEWS; 7. 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 FINDINGS: Left shoulder: There are no erosions. There are no fractures. Alignment is normal.There is mild glenohumeral and acromioclavicular joint osteoarthritis. Right shoulder: There are no fractures. Alignment is normal. There are no erosions.There is mild glenohumeral and acromioclavicular joint osteoarthritis. Left hand: Lunate erosion is present. There is mild distal radioulnar and basalthumb joint osteoarthritis. There are no fractures. There is no dorsal wristsoft tissue swelling. Dorsal wrist calcifications may be vascular. Right hand: There are no erosions. There are no fractures. There is mild widening ofthe scapholunate interval. Radiocarpal joint osteoarthritis is present withloose bodies. Distal interphalangeal joint osteoarthritis is present. There isno dorsal wrist soft tissue swelling. Hips: There are no erosions. There are no fractures. There is mild bilateralhip osteoarthritis with deficient femoral head neck junction offset. Left elbow: There are no erosions. There are no fractures. There is hret-va-oevzxboy tricompartmental left elbow osteoarthritis with multiple loose bodies inthe olecranon and coronoid fossa is. There is no effusion. Right elbow: There are no erosions. There are no fractures. There is zxwi-oi-tpbqymrw tricompartmental right elbow osteoarthritis with multiple loose bodies.There are no effusions. IMPRESSION: 1. Nonspecific left lunate erosion. No other radiographic evidence of inflammatory arthritis. 2. Mild bilateral glenohumeral and acromioclavicular jointosteoarthritis. 3. Mild polyarticular left wrist osteoarthritis. 4. Widening of the right scapholunate interval with right radiocarpaljoint osteoarthritis and multiple loose bodies. 5. Mild bilateral hip osteoarthritis. 6. Grhb-de-ctspfkng tricompartmental bilateral knee osteoarthritis with multiple loose bodies, which may result in a mechanical block to flexion/extension. THIS IS AN ELECTRONICALLY VERIFIED FINAL REPORT 02/01/2021 8:54 PM - Electronically signed by Washington Cavazos M.D. T: Report ID: [id number] Reading Location: [id number] us Deshawn Talbert MD IMG XR PROCEDURES Final R esult * XR Hand Right 3 or More Views (02/01/2021 9:20 AM CDT) Anatomical Region Laterality Modality Upper Extremities, Hand Right Computed Radiography 02/01/2021 8:45 PM CDT Narrative 02/01/2021 8:54 PM CDT EXAM DESCRIPTION: ?? 1. ??XR HAND RIGHT 3 OR MORE VIEWS; 2. ??XR ELBOW LEFT 3 OR MORE VIEWS; 3. ??XR HAND LEFT 3 OR MORE VIEWS; 4. ??XR ELBOW RIGHT 3 OR MORE VIEWS; 5. ??XR HIPS BILATERAL 2 VIEWS; 6. ??XR SHOULDER RIGHT 2 OR MORE VIEWS; 7. ??XR SHOULDER LEFT 2 OR MORE VIEWS REASON FOR STUDY: ?? 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 TECHNIQUE: ??Two views each hip, three views each hand, three views each elbow, and three views each shoulder submitted without comparison. FINDINGS: Left shoulder: There are no erosions. ??There are no fractures. ??Alignment is normal. ??There is mild glenohumeral and acromioclavicular joint osteoarthritis. Right shoulder: There are no fractures. ??Alignment is normal. ??There are no erosions. ??There is mild glenohumeral and acromioclavicular joint osteoarthritis. Left hand: Lunate erosion is present. ??There is mild distal radioulnar and basal thumb joint osteoarthritis. ??There are no fractures. ??There is no dorsal wrist soft tissue swelling. ??Dorsal wrist calcifications may be vascular. Right hand: There are no erosions. ??There are no fractures. ??There is mild widening of the scapholunate interval. ??Radiocarpal joint osteoarthritis is present with loose bodies. ??Distal interphalangeal joint osteoarthritis is present. ??There is no dorsal wrist soft tissue swelling. Hips: There are no erosions. ??There are no fractures. ??There is mild bilateral hip osteoarthritis with deficient femoral head neck junction offset. Left elbow: There are no erosions. ??There are no fractures. ??There is qyll-la-vqspktoj tricompartmental left elbow osteoarthritis with multiple loose bodies in the olecranon and coronoid fossa is. ??There is no effusion. Right elbow: There are no erosions. ??There are no fractures. ??There is firi-co-ctohwkpo tricompartmental right elbow osteoarthritis with multiple loose bodies. ??There are no effusions. IMPRESSION: ?? 1. ??Nonspecific left lunate erosion. ??No other radiographic evidence of inflammatory arthritis. 2. ??Mild bilateral glenohumeral and acromioclavicular joint osteoarthritis. 3. ??Mild polyarticular left wrist osteoarthritis. 4. ??Widening of the right scapholunate interval with right radiocarpal joint osteoarthritis and multiple loose bodies. 5. ??Mild bilateral hip osteoarthritis. 6. ??Vkaq-rv-nhnfsudo tricompartmental bilateral knee osteoarthritis with multiple loose bodies, which may result in a mechanical block to flexion/extension. THIS IS AN ELECTRONICALLY VERIFIED FINAL REPORT 02/01/2021 8:54 PM - Electronically signed by Washington Cavazos M.D. D: ??02/01/2021 8:54 PM T: Report ID: [id number] Reading Location: ??[id number] Procedure Note Washington Cavazos MD - 02/01/2021 EXAM DESCRIPTION: 1. XR HAND RIGHT 3 OR MORE VIEWS; 2. XR ELBOW LEFT 3 OR MORE VIEWS; 3. XR HAND LEFT 3 OR MORE VIEWS; 4. XR ELBOW RIGHT 3 OR MORE VIEWS; 5. XR HIPS BILATERAL 2 VIEWS; 6. XR SHOULDER RIGHT 2 OR MORE VIEWS; 7. 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 FINDINGS: Left shoulder: There are no erosions. There are no fractures. Alignment is normal.There is mild glenohumeral and acromioclavicular joint osteoarthritis. Right shoulder: There are no fractures. Alignment is normal. There are no erosions.There is mild glenohumeral and acromioclavicular joint osteoarthritis. Left hand: Lunate erosion is present. There is mild distal radioulnar and basalthumb joint osteoarthritis. There are no fractures. There is no dorsal wristsoft tissue swelling. Dorsal wrist calcifications may be vascular. Right hand: There are no erosions. There are no fractures. There is mild widening ofthe scapholunate interval. Radiocarpal joint osteoarthritis is present withloose bodies. Distal interphalangeal joint osteoarthritis is present. There isno dorsal wrist soft tissue swelling. Hips: There are no erosions. There are no fractures. There is mild bilateralhip osteoarthritis with deficient femoral head neck junction offset. Left elbow: There are no erosions. There are no fractures. There is wzaq-sh-wtublfov tricompartmental left elbow osteoarthritis with multiple loose bodies inthe olecranon and coronoid fossa is. There is no effusion. Right elbow: There are no erosions. There are no fractures. There is hgqv-xy-ncbjfeoo tricompartmental right elbow osteoarthritis with multiple loose bodies.There are no effusions. IMPRESSION: 1. Nonspecific left lunate erosion. No other radiographic evidence of inflammatory arthritis. 2. Mild bilateral glenohumeral and acromioclavicular jointosteoarthritis. 3. Mild polyarticular left wrist osteoarthritis. 4. Widening of the right scapholunate interval with right radiocarpaljoint osteoarthritis and multiple loose bodies. 5. Mild bilateral hip osteoarthritis. 6. Wmzt-hm-wercewzc tricompartmental bilateral knee osteoarthritis with multiple loose bodies, which may result in a mechanical block to flexion/extension. THIS IS AN ELECTRONICALLY VERIFIED FINAL REPORT 02/01/2021 8:54 PM - Electronically signed by Washington Cavazos M.D. T: Report ID: [id number] Reading Location: [place] [id number] us Deshawn Talbert MD IMG XR PROCEDURES Final R esult * XR Hand Left 3 or More Views (02/01/2021 9:20 AM CDT) Anatomical Region Laterality Modality Upper Extremities, Hand Left Computed Radiography 02/01/2021 8:45 PM CDT Narrative 02/01/2021 8:54 PM CDT EXAM DESCRIPTION: ?? 1. ??XR HAND RIGHT 3 OR MORE VIEWS; 2. ??XR ELBOW LEFT 3 OR MORE VIEWS; 3. ??XR HAND LEFT 3 OR MORE VIEWS; 4. ??XR ELBOW RIGHT 3 OR MORE VIEWS; 5. ??XR HIPS BILATERAL 2 VIEWS; 6. ??XR SHOULDER RIGHT 2 OR MORE VIEWS; 7. ??XR SHOULDER LEFT 2 OR MORE VIEWS REASON FOR STUDY: ?? 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 TECHNIQUE: ??Two views each hip, three views each hand, three views each elbow, and three views each shoulder submitted without comparison. FINDINGS: Left shoulder: There are no erosions. ??There are no fractures. ??Alignment is normal. ??There is mild glenohumeral and acromioclavicular joint osteoarthritis. Right shoulder: There are no fractures. ??Alignment is normal. ??There are no erosions. ??There is mild glenohumeral and acromioclavicular joint osteoarthritis. Left hand: Lunate erosion is present. ??There is mild distal radioulnar and basal thumb joint osteoarthritis. ??There are no fractures. ??There is no dorsal wrist soft tissue swelling. ??Dorsal wrist calcifications may be vascular. Right hand: There are no erosions. ??There are no fractures. ??There is mild widening of the scapholunate interval. ??Radiocarpal joint osteoarthritis is present with loose bodies. ??Distal interphalangeal joint osteoarthritis is present. ??There is no dorsal wrist soft tissue swelling. Hips: There are no erosions. ??There are no fractures. ??There is mild bilateral hip osteoarthritis with deficient femoral head neck junction offset. Left elbow: There are no erosions. ??There are no fractures. ??There is txic-dw-lhvxetto tricompartmental left elbow osteoarthritis with multiple loose bodies in the olecranon and coronoid fossa is. ??There is no effusion. Right elbow: There are no erosions. ??There are no fractures. ??There is vdll-mb-ugjistnl tricompartmental right elbow osteoarthritis with multiple loose bodies. ??There are no effusions. IMPRESSION: ?? 1. ??Nonspecific left lunate erosion. ??No other radiographic evidence of inflammatory arthritis. 2. ??Mild bilateral glenohumeral and acromioclavicular joint osteoarthritis. 3. ??Mild polyarticular left wrist osteoarthritis. 4. ??Widening of the right scapholunate interval with right radiocarpal joint osteoarthritis and multiple loose bodies. 5. ??Mild bilateral hip osteoarthritis. 6. ??Dqzc-jn-bdrmdfpo tricompartmental bilateral knee osteoarthritis with multiple loose bodies, which may result in a mechanical block to flexion/extension. THIS IS AN ELECTRONICALLY VERIFIED FINAL REPORT 02/01/2021 8:54 PM - Electronically signed by Washington Cavazos M.D. D: ??02/01/2021 8:54 PM T: Report ID: [id number] Reading Location: ??[id number] Procedure Note Washington Cavazos MD - 02/01/2021 EXAM DESCRIPTION: 1. XR HAND RIGHT 3 OR MORE VIEWS; 2. XR ELBOW LEFT 3 OR MORE VIEWS; 3. XR HAND LEFT 3 OR MORE VIEWS; 4. XR ELBOW RIGHT 3 OR MORE VIEWS; 5. XR HIPS BILATERAL 2 VIEWS; 6. XR SHOULDER RIGHT 2 OR MORE VIEWS; 7. 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 FINDINGS: Left shoulder: There are no erosions. There are no fractures. Alignment is normal.There is mild glenohumeral and acromioclavicular joint osteoarthritis. Right shoulder: There are no fractures. Alignment is normal. There are no erosions.There is mild glenohumeral and acromioclavicular joint osteoarthritis. Left hand: Lunate erosion is present. There is mild distal radioulnar and basalthumb joint osteoarthritis. There are no fractures. There is no dorsal wristsoft tissue swelling. Dorsal wrist calcifications may be vascular. Right hand: There are no erosions. There are no fractures. There is mild widening ofthe scapholunate interval. Radiocarpal joint osteoarthritis is present withloose bodies. Distal interphalangeal joint osteoarthritis is present. There isno dorsal wrist soft tissue swelling. Hips: There are no erosions. There are no fractures. There is mild bilateralhip osteoarthritis with deficient femoral head neck junction offset. Left elbow: There are no erosions. There are no fractures. There is hcnk-jp-zgwvsmrv tricompartmental left elbow osteoarthritis with multiple loose bodies inthe olecranon and coronoid fossa is. There is no effusion. Right elbow: There are no erosions. There are no fractures. There is ifoi-ab-qjsxflqi tricompartmental right elbow osteoarthritis with multiple loose bodies.There are no effusions. IMPRESSION: 1. Nonspecific left lunate erosion. No other radiographic evidence of inflammatory arthritis. 2. Mild bilateral glenohumeral and acromioclavicular jointosteoarthritis. 3. Mild polyarticular left wrist osteoarthritis. 4. Widening of the right scapholunate interval with right radiocarpaljoint osteoarthritis and multiple loose bodies. 5. Mild bilateral hip osteoarthritis. 6. Zsmn-jp-fsluhazb tricompartmental bilateral knee osteoarthritis with multiple loose bodies, which may result in a mechanical block to flexion/extension. THIS IS AN ELECTRONICALLY VERIFIED FINAL REPORT 02/01/2021 8:54 PM - Electronically signed by Washington Cavazos M.D. T: Report ID: [id number] Reading Location: [id number] us Deshawn Talbert MD IMG XR PROCEDURES Final R esult * XR Elbow Left 3 or More Views (02/01/2021 9:20 AM CDT) Anatomical Region Laterality Modality Upper Extremities, Elbow Left Compute d Radiography 02/01/2021 8:45 PM CDT Narrative 02/01/2021 8:54 PM CDT EXAM DESCRIPTION: ?? 1. ??XR HAND RIGHT 3 OR MORE VIEWS; 2. ??XR ELBOW LEFT 3 OR MORE VIEWS; 3. ??XR HAND LEFT 3 OR MORE VIEWS; 4. ??XR ELBOW RIGHT 3 OR MORE VIEWS; 5. ??XR HIPS BILATERAL 2 VIEWS; 6. ??XR SHOULDER RIGHT 2 OR MORE VIEWS; 7. ??XR SHOULDER LEFT 2 OR MORE VIEWS REASON FOR STUDY: ?? 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 TECHNIQUE: ??Two views each hip, three views each hand, three views each elbow, and three views each shoulder submitted without comparison. FINDINGS: Left shoulder: There are no erosions. ??There are no fractures. ??Alignment is normal. ??There is mild glenohumeral and acromioclavicular joint osteoarthritis. Right shoulder: There are no fractures. ??Alignment is normal. ??There are no erosions. ??There is mild glenohumeral and acromioclavicular joint osteoarthritis. Left hand: Lunate erosion is present. ??There is mild distal radioulnar and basal thumb joint osteoarthritis. ??There are no fractures. ??There is no dorsal wrist soft tissue swelling. ??Dorsal wrist calcifications may be vascular. Right hand: There are no erosions. ??There are no fractures. ??There is mild widening of the scapholunate interval. ??Radiocarpal joint osteoarthritis is present with loose bodies. ??Distal interphalangeal joint osteoarthritis is present. ??There is no dorsal wrist soft tissue swelling. Hips: There are no erosions. ??There are no fractures. ??There is mild bilateral hip osteoarthritis with deficient femoral head neck junction offset. Left elbow: There are no erosions. ??There are no fractures. ??There is menl-ao-erfzezgf tricompartmental left elbow osteoarthritis with multiple loose bodies in the olecranon and coronoid fossa is. ??There is no effusion. Right elbow: There are no erosions. ??There are no fractures. ??There is kuxj-it-txologep tricompartmental right elbow osteoarthritis with multiple loose bodies. ??There are no effusions. IMPRESSION: ?? 1. ??Nonspecific left lunate erosion. ??No other radiographic evidence of inflammatory arthritis. 2. ??Mild bilateral glenohumeral and acromioclavicular joint osteoarthritis. 3. ??Mild polyarticular left wrist osteoarthritis. 4. ??Widening of the right scapholunate interval with right radiocarpal joint osteoarthritis and multiple loose bodies. 5. ??Mild bilateral hip osteoarthritis. 6. ??Fbxs-nu-qpiittsm tricompartmental bilateral knee osteoarthritis with multiple loose bodies, which may result in a mechanical block to flexion/extension. THIS IS AN ELECTRONICALLY VERIFIED FINAL REPORT 02/01/2021 8:54 PM - Electronically signed by Washington Cavazos M.D. D: ??02/01/2021 8:54 PM T: Report ID: [id number] Reading Location: ??[id number] Procedure Note Washington Cavazos MD - 02/01/2021 EXAM DESCRIPTION: 1. XR HAND RIGHT 3 OR MORE VIEWS; 2. XR ELBOW LEFT 3 OR MORE VIEWS; 3. XR HAND LEFT 3 OR MORE VIEWS; 4. XR ELBOW RIGHT 3 OR MORE VIEWS; 5. XR HIPS BILATERAL 2 VIEWS; 6. XR SHOULDER RIGHT 2 OR MORE VIEWS; 7. 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 FINDINGS: Left shoulder: There are no erosions. There are no fractures. Alignment is normal.There is mild glenohumeral and acromioclavicular joint osteoarthritis. Right shoulder: There are no fractures. Alignment is normal. There are no erosions.There is mild glenohumeral and acromioclavicular joint osteoarthritis. Left hand: Lunate erosion is present. There is mild distal radioulnar and basalthumb joint osteoarthritis. There are no fractures. There is no dorsal wristsoft tissue swelling. Dorsal wrist calcifications may be vascular. Right hand: There are no erosions. There are no fractures. There is mild widening ofthe scapholunate interval. Radiocarpal joint osteoarthritis is present withloose bodies. Distal interphalangeal joint osteoarthritis is present. There isno dorsal wrist soft tissue swelling. Hips: There are no erosions. There are no fractures. There is mild bilateralhip osteoarthritis with deficient femoral head neck junction offset. Left elbow: There are no erosions. There are no fractures. There is lasn-tq-qtzohpwo tricompartmental left elbow osteoarthritis with multiple loose bodies inthe olecranon and coronoid fossa is. There is no effusion. Right elbow: There are no erosions. There are no fractures. There is qcfr-tr-gezgfnpv tricompartmental right elbow osteoarthritis with multiple loose bodies.There are no effusions. IMPRESSION: 1. Nonspecific left lunate erosion. No other radiographic evidence of inflammatory arthritis. 2. Mild bilateral glenohumeral and acromioclavicular jointosteoarthritis. 3. Mild polyarticular left wrist osteoarthritis. 4. Widening of the right scapholunate interval with right radiocarpaljoint osteoarthritis and multiple loose bodies. 5. Mild bilateral hip osteoarthritis. 6. Urwp-ui-ksidpfcn tricompartmental bilateral knee osteoarthritis with multiple loose bodies, which may result in a mechanical block to flexion/extension. THIS IS AN ELECTRONICALLY VERIFIED FINAL REPORT 02/01/2021 8:54 PM - Electronically signed by Washington Cavazos M.D. T: Report ID: [id number] Reading Location: [place] [id number] Deshawn Talbert MD IMG XR PROCEDURES Final R esult * XR Hips Bilateral 2 Views (02/01/2021 9:20 AM CDT) Anatomical Region Laterality Modality Lower Extremities, Hip, Pelvis Bilateral C omputed Radiography 02/01/2021 8:45 PM CDT Narrative 02/01/2021 8:54 PM CDT EXAM DESCRIPTION: ?? 1. ??XR HAND RIGHT 3 OR MORE VIEWS; 2. ??XR ELBOW LEFT 3 OR MORE VIEWS; 3. ??XR HAND LEFT 3 OR MORE VIEWS; 4. ??XR ELBOW RIGHT 3 OR MORE VIEWS; 5. ??XR HIPS BILATERAL 2 VIEWS; 6. ??XR SHOULDER RIGHT 2 OR MORE VIEWS; 7. ??XR SHOULDER LEFT 2 OR MORE VIEWS REASON FOR STUDY: ?? 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 TECHNIQUE: ??Two views each hip, three views each hand, three views each elbow, and three views each shoulder submitted without comparison. FINDINGS: Left shoulder: There are no erosions. ??There are no fractures. ??Alignment is normal. ??There is mild glenohumeral and acromioclavicular joint osteoarthritis. Right shoulder: There are no fractures. ??Alignment is normal. ??There are no erosions. ??There is mild glenohumeral and acromioclavicular joint osteoarthritis. Left hand: Lunate erosion is present. ??There is mild distal radioulnar and basal thumb joint osteoarthritis. ??There are no fractures. ??There is no dorsal wrist soft tissue swelling. ??Dorsal wrist calcifications may be vascular. Right hand: There are no erosions. ??There are no fractures. ??There is mild widening of the scapholunate interval. ??Radiocarpal joint osteoarthritis is present with loose bodies. ??Distal interphalangeal joint osteoarthritis is present. ??There is no dorsal wrist soft tissue swelling. Hips: There are no erosions. ??There are no fractures. ??There is mild bilateral hip osteoarthritis with deficient femoral head neck junction offset. Left elbow: There are no erosions. ??There are no fractures. ??There is ciyg-gv-qboplswc tricompartmental left elbow osteoarthritis with multiple loose bodies in the olecranon and coronoid fossa is. ??There is no effusion. Right elbow: There are no erosions. ??There are no fractures. ??There is ezzj-bt-vimlcsbt tricompartmental right elbow osteoarthritis with multiple loose bodies. ??There are no effusions. IMPRESSION: ?? 1. ??Nonspecific left lunate erosion. ??No other radiographic evidence of inflammatory arthritis. 2. ??Mild bilateral glenohumeral and acromioclavicular joint osteoarthritis. 3. ??Mild polyarticular left wrist osteoarthritis. 4. ??Widening of the right scapholunate interval with right radiocarpal joint osteoarthritis and multiple loose bodies. 5. ??Mild bilateral hip osteoarthritis. 6. ??Hwqz-wy-qrlknhxj tricompartmental bilateral knee osteoarthritis with multiple loose bodies, which may result in a mechanical block to flexion/extension. THIS IS AN ELECTRONICALLY VERIFIED FINAL REPORT 02/01/2021 8:54 PM - Electronically signed by Washington Cavazos M.D. D: ??02/01/2021 8:54 PM T: Report ID: [id number] Reading Location: ??[id number] Procedure Note Washington Cavazos MD - 02/01/2021 EXAM DESCRIPTION: 1. XR HAND RIGHT 3 OR MORE VIEWS; 2. XR ELBOW LEFT 3 OR MORE VIEWS; 3. XR HAND LEFT 3 OR MORE VIEWS; 4. XR ELBOW RIGHT 3 OR MORE VIEWS; 5. XR HIPS BILATERAL 2 VIEWS; 6. XR SHOULDER RIGHT 2 OR MORE VIEWS; 7. 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 FINDINGS: Left shoulder: There are no erosions. There are no fractures. Alignment is normal.There is mild glenohumeral and acromioclavicular joint osteoarthritis. Right shoulder: There are no fractures. Alignment is normal. There are no erosions.There is mild glenohumeral and acromioclavicular joint osteoarthritis. Left hand: Lunate erosion is present. There is mild distal radioulnar and basalthumb joint osteoarthritis. There are no fractures. There is no dorsal wristsoft tissue swelling. Dorsal wrist calcifications may be vascular. Right hand: There are no erosions. There are no fractures. There is mild widening ofthe scapholunate interval. Radiocarpal joint osteoarthritis is present withloose bodies. Distal interphalangeal joint osteoarthritis is present. There isno dorsal wrist soft tissue swelling. Hips: There are no erosions. There are no fractures. There is mild bilateralhip osteoarthritis with deficient femoral head neck junction offset. Left elbow: There are no erosions. There are no fractures. There is asbk-vc-pegoizzw tricompartmental left elbow osteoarthritis with multiple loose bodies inthe olecranon and coronoid fossa is. There is no effusion. Right elbow: There are no erosions. There are no fractures. There is eptd-ky-qmfnaypj tricompartmental right elbow osteoarthritis with multiple loose bodies.There are no effusions. IMPRESSION: 1. Nonspecific left lunate erosion. No other radiographic evidence of inflammatory arthritis. 2. Mild bilateral glenohumeral and acromioclavicular jointosteoarthritis. 3. Mild polyarticular left wrist osteoarthritis. 4. Widening of the right scapholunate interval with right radiocarpaljoint osteoarthritis and multiple loose bodies. 5. Mild bilateral hip osteoarthritis. 6. Eczz-dd-awuvbvdi tricompartmental bilateral knee osteoarthritis with multiple loose bodies, which may result in a mechanical block to flexion/extension. THIS IS AN ELECTRONICALLY VERIFIED FINAL REPORT 02/01/2021 8:54 PM - Electronically signed by Washington Cavazos M.D. T: Report ID: [id number] Reading Location: [place] [id number] [place] Deshawn Talbert MD IMG XR PROCEDURES Final R esult * XR Shoulder Right 2 or More Views (02/01/2021 9:20 AM CDT) Anatomical Region Laterality Modality Upper Extremities, Shoulder Right Comp uted Radiography 02/01/2021 8:45 PM CDT Narrative 02/01/2021 8:54 PM CDT EXAM DESCRIPTION: ?? 1. ??XR HAND RIGHT 3 OR MORE VIEWS; 2. ??XR ELBOW LEFT 3 OR MORE VIEWS; 3. ??XR HAND LEFT 3 OR MORE VIEWS; 4. ??XR ELBOW RIGHT 3 OR MORE VIEWS; 5. ??XR HIPS BILATERAL 2 VIEWS; 6. ??XR SHOULDER RIGHT 2 OR MORE VIEWS; 7. ??XR SHOULDER LEFT 2 OR MORE VIEWS REASON FOR STUDY: ?? 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 TECHNIQUE: ??Two views each hip, three views each hand, three views each elbow, and three views each shoulder submitted without comparison. FINDINGS: Left shoulder: There are no erosions. ??There are no fractures. ??Alignment is normal. ??There is mild glenohumeral and acromioclavicular joint osteoarthritis. Right shoulder: There are no fractures. ??Alignment is normal. ??There are no erosions. ??There is mild glenohumeral and acromioclavicular joint osteoarthritis. Left hand: Lunate erosion is present. ??There is mild distal radioulnar and basal thumb joint osteoarthritis. ??There are no fractures. ??There is no dorsal wrist soft tissue swelling. ??Dorsal wrist calcifications may be vascular. Right hand: There are no erosions. ??There are no fractures. ??There is mild widening of the scapholunate interval. ??Radiocarpal joint osteoarthritis is present with loose bodies. ??Distal interphalangeal joint osteoarthritis is present. ??There is no dorsal wrist soft tissue swelling. Hips: There are no erosions. ??There are no fractures. ??There is mild bilateral hip osteoarthritis with deficient femoral head neck junction offset. Left elbow: There are no erosions. ??There are no fractures. ??There is qwgr-jo-albxuoml tricompartmental left elbow osteoarthritis with multiple loose bodies in the olecranon and coronoid fossa is. ??There is no effusion. Right elbow: There are no erosions. ??There are no fractures. ??There is lkxo-yc-cmoermlg tricompartmental right elbow osteoarthritis with multiple loose bodies. ??There are no effusions. IMPRESSION: ?? 1. ??Nonspecific left lunate erosion. ??No other radiographic evidence of inflammatory arthritis. 2. ??Mild bilateral glenohumeral and acromioclavicular joint osteoarthritis. 3. ??Mild polyarticular left wrist osteoarthritis. 4. ??Widening of the right scapholunate interval with right radiocarpal joint osteoarthritis and multiple loose bodies. 5. ??Mild bilateral hip osteoarthritis. 6. ??Rqom-sl-pldqgcke tricompartmental bilateral knee osteoarthritis with multiple loose bodies, which may result in a mechanical block to flexion/extension. THIS IS AN ELECTRONICALLY VERIFIED FINAL REPORT 02/01/2021 8:54 PM - Electronically signed by Washington Cavazos M.D. D: ??02/01/2021 8:54 PM T: Report ID: [id number] Reading Location: ??[id number] Procedure Note Washington Cavazos MD - 02/01/2021 EXAM DESCRIPTION: 1. XR HAND RIGHT 3 OR MORE VIEWS; 2. XR ELBOW LEFT 3 OR MORE VIEWS; 3. XR HAND LEFT 3 OR MORE VIEWS; 4. XR ELBOW RIGHT 3 OR MORE VIEWS; 5. XR HIPS BILATERAL 2 VIEWS; 6. XR SHOULDER RIGHT 2 OR MORE VIEWS; 7. 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 FINDINGS: Left shoulder: There are no erosions. There are no fractures. Alignment is normal.There is mild glenohumeral and acromioclavicular joint osteoarthritis. Right shoulder: There are no fractures. Alignment is normal. There are no erosions.There is mild glenohumeral and acromioclavicular joint osteoarthritis. Left hand: Lunate erosion is present. There is mild distal radioulnar and basalthumb joint osteoarthritis. There are no fractures. There is no dorsal wristsoft tissue swelling. Dorsal wrist calcifications may be vascular. Right hand: There are no erosions. There are no fractures. There is mild widening ofthe scapholunate interval. Radiocarpal joint osteoarthritis is present withloose bodies. Distal interphalangeal joint osteoarthritis is present. There isno dorsal wrist soft tissue swelling. Hips: There are no erosions. There are no fractures. There is mild bilateralhip osteoarthritis with deficient femoral head neck junction offset. Left elbow: There are no erosions. There are no fractures. There is jcaz-oz-ryjvzbya tricompartmental left elbow osteoarthritis with multiple loose bodies inthe olecranon and coronoid fossa is. There is no effusion. Right elbow: There are no erosions. There are no fractures. There is wnwf-ye-ixxstyna tricompartmental right elbow osteoarthritis with multiple loose bodies.There are no effusions. IMPRESSION: 1. Nonspecific left lunate erosion. No other radiographic evidence of inflammatory arthritis. 2. Mild bilateral glenohumeral and acromioclavicular jointosteoarthritis. 3. Mild polyarticular left wrist osteoarthritis. 4. Widening of the right scapholunate interval with right radiocarpaljoint osteoarthritis and multiple loose bodies. 5. Mild bilateral hip osteoarthritis. 6. Xhdo-ew-eyoowbfc tricompartmental bilateral knee osteoarthritis with multiple loose bodies, which may result in a mechanical block to flexion/extension. THIS IS AN ELECTRONICALLY VERIFIED FINAL REPORT 02/01/2021 8:54 PM - Electronically signed by Washington Cavazos M.D. T: Report ID: [id number] Reading Location: [id number] [place] Deshawn Talbert MD IMG XR PROCEDURES Final R esult * XR Shoulder Left 2 or More Views (02/01/2021 9:20 AM CDT) Anatomical Region Laterality Modality Upper Extremities, Shoulder Left Comp uted Radiography 02/01/2021 8:45 PM CDT Narrative 02/01/2021 8:54 PM CDT EXAM DESCRIPTION: ?? 1. ??XR HAND RIGHT 3 OR MORE VIEWS; 2. ??XR ELBOW LEFT 3 OR MORE VIEWS; 3. ??XR HAND LEFT 3 OR MORE VIEWS; 4. ??XR ELBOW RIGHT 3 OR MORE VIEWS; 5. ??XR HIPS BILATERAL 2 VIEWS; 6. ??XR SHOULDER RIGHT 2 OR MORE VIEWS; 7. ??XR SHOULDER LEFT 2 OR MORE VIEWS REASON FOR STUDY: ?? 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 TECHNIQUE: ??Two views each hip, three views each hand, three views each elbow, and three views each shoulder submitted without comparison. FINDINGS: Left shoulder: There are no erosions. ??There are no fractures. ??Alignment is normal. ??There is mild glenohumeral and acromioclavicular joint osteoarthritis. Right shoulder: There are no fractures. ??Alignment is normal. ??There are no erosions. ??There is mild glenohumeral and acromioclavicular joint osteoarthritis. Left hand: Lunate erosion is present. ??There is mild distal radioulnar and basal thumb joint osteoarthritis. ??There are no fractures. ??There is no dorsal wrist soft tissue swelling. ??Dorsal wrist calcifications may be vascular. Right hand: There are no erosions. ??There are no fractures. ??There is mild widening of the scapholunate interval. ??Radiocarpal joint osteoarthritis is present with loose bodies. ??Distal interphalangeal joint osteoarthritis is present. ??There is no dorsal wrist soft tissue swelling. Hips: There are no erosions. ??There are no fractures. ??There is mild bilateral hip osteoarthritis with deficient femoral head neck junction offset. Left elbow: There are no erosions. ??There are no fractures. ??There is ajkl-bq-swshsjhs tricompartmental left elbow osteoarthritis with multiple loose bodies in the olecranon and coronoid fossa is. ??There is no effusion. Right elbow: There are no erosions. ??There are no fractures. ??There is waak-xx-gjydbafc tricompartmental right elbow osteoarthritis with multiple loose bodies. ??There are no effusions. IMPRESSION: ?? 1. ??Nonspecific left lunate erosion. ??No other radiographic evidence of inflammatory arthritis. 2. ??Mild bilateral glenohumeral and acromioclavicular joint osteoarthritis. 3. ??Mild polyarticular left wrist osteoarthritis. 4. ??Widening of the right scapholunate interval with right radiocarpal joint osteoarthritis and multiple loose bodies. 5. ??Mild bilateral hip osteoarthritis. 6. ??Wuri-kp-hbdefvuu tricompartmental bilateral knee osteoarthritis with multiple loose bodies, which may result in a mechanical block to flexion/extension. THIS IS AN ELECTRONICALLY VERIFIED FINAL REPORT 02/01/2021 8:54 PM - Electronically signed by Washington Cavazos M.D. D: ??02/01/2021 8:54 PM T: Report ID: [id number] Reading Location: ??[id number] Procedure Note Washington Cavazos MD - 02/01/2021 EXAM DESCRIPTION: 1. XR HAND RIGHT 3 OR MORE VIEWS; 2. XR ELBOW LEFT 3 OR MORE VIEWS; 3. XR HAND LEFT 3 OR MORE VIEWS; 4. XR ELBOW RIGHT 3 OR MORE VIEWS; 5. XR HIPS BILATERAL 2 VIEWS; 6. XR SHOULDER RIGHT 2 OR MORE VIEWS; 7. 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 FINDINGS: Left shoulder: There are no erosions. There are no fractures. Alignment is normal.There is mild glenohumeral and acromioclavicular joint osteoarthritis. Right shoulder: There are no fractures. Alignment is normal. There are no erosions.There is mild glenohumeral and acromioclavicular joint osteoarthritis. Left hand: Lunate erosion is present. There is mild distal radioulnar and basalthumb joint osteoarthritis. There are no fractures. There is no dorsal wristsoft tissue swelling. Dorsal wrist calcifications may be vascular. Right hand: There are no erosions. There are no fractures. There is mild widening ofthe scapholunate interval. Radiocarpal joint osteoarthritis is present withloose bodies. Distal interphalangeal joint osteoarthritis is present. There isno dorsal wrist soft tissue swelling. Hips: There are no erosions. There are no fractures. There is mild bilateralhip osteoarthritis with deficient femoral head neck junction offset. Left elbow: There are no erosions. There are no fractures. There is vyqz-jo-gadgonyf tricompartmental left elbow osteoarthritis with multiple loose bodies inthe olecranon and coronoid fossa is. There is no effusion. Right elbow: There are no erosions. There are no fractures. There is rcqx-re-kwvwpdul tricompartmental right elbow osteoarthritis with multiple loose bodies.There are no effusions. IMPRESSION: 1. Nonspecific left lunate erosion. No other radiographic evidence of inflammatory arthritis. 2. Mild bilateral glenohumeral and acromioclavicular jointosteoarthritis. 3. Mild polyarticular left wrist osteoarthritis. 4. Widening of the right scapholunate interval with right radiocarpaljoint osteoarthritis and multiple loose bodies. 5. Mild bilateral hip osteoarthritis. 6. Uhwd-dm-rwlomtqq tricompartmental bilateral knee osteoarthritis with multiple loose bodies, which may result in a mechanical block to flexion/extension. THIS IS AN ELECTRONICALLY VERIFIED FINAL REPORT 02/01/2021 8:54 PM - Electronically signed by Washington Cavazos M.D. T: Report ID: [id number] Reading Location: [id number] Deshawn Talbert MD IMG XR PROCEDURES Final R esult documented in this encounter Visit Diagnoses Diagnosis Pain in joint, multiple sites Joint pain Pain in joint, site unspecified documented in this encounter Care Teams English Horn Player Relationship Specialty Start Date End Date Deshawn Talbert MD [address] [place] [address] PCP - General Internal Medicine 09/07/19 12/27/22 documented as of this encounter
--- OUTSIDE RECORDS SUMMARY | 2024-04-26 21:38 | XMS_ITS | Encounter Summary ---
Author Organization [facility] Address [address] [facility] [place] [address] [place] [address] Care Team Providers Care Skill Labor Name Role Phone Deshawn Talbert MD Primary Care Provider [phone] [phone] Reason for Referral * Procedure (Routine) - Closed Specialty Diagnoses / Procedures Referred By Contac t Referred To Contact Diagnoses Status post total right knee replacement Effusion, right knee Procedures Large Joint (Hip, Knee, Shoulder) Injection: R knee Dougie Loera MD [address] [place] [address] DR FRANKLIN [address] [place] [address] Phone: tel: fax: [facility] Medical [facility] Referral ID Status Reason Start Date Expiration Date Visits Re quested Visits Authorized [id number] Closed 10/05/2020 11/04/2021 1 1 Reason for Visit * Reason Comments Pain Encounter Details Date Type Department Care Team (Late st Contact Info) Description 10/05/2020 10:00 AM CDT Office Visit [facility] Medical [facility] Orthopedics and Sports Medicine [address] [place] [address] [address] [place] [address] Dougie Loera MD [address] [place] [address] DR FRANKLIN [address] [place] [address] Status post total right knee replacement; Effusion, right knee Social History Tobacco Use Types Packs/Day Years Used Date Smoking Tobacco: Never Alcohol Use Standard Drinks/Week Comments Yes 0 (1 standard drink = 0.6 oz pur e alcohol) social Sex and Gender Information Value Date Recorded Sex Assigned at Not on file Legal Sex Male 7:48 AM SPRAY STAINER Gender Identity Male 04/10/2021 6:39 AM SPRAY STAINER Sexual Orientation Straight 03/15/2021 5: 03 PM SPRAY STAINER 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 Not on file Not on file Not on file documented as of this encounter Last Filed Vital Signs Vital Sign Reading Time Taken Comments Blood Pressure - - Pulse - - Temperature - - Respiratory Rate - - Oxygen Saturation - - Inhaled Oxygen Concentration - - Weight 115.7 kg (255 lb) 10/05/2020 9:45 AM CDT Height - - Body Mass Index 31.04 01/28/2020 3:12 PM CDT documented in this encounter Progress Notes * Dougie Loera MD - 10/05/2020 10:00 AM CDTAssociated Order(s): Large Joint (Hip, Knee, Shoulder) Injection: R knee Post-Procedure Diagnose(s): Status post total right knee replacement; Effusion, right knee CHIEF COMPLAINT Right knee pain, swelling and stiff HISTORY OF PRESENT ILLNESS This 59-year-old male has a right total knee replacement from 9 months ago. He reports pain swelling and stiffness in the knee that is impairing his daily activities which is that this time mostly golf. He reports no trauma to the knee. He tries to maintain a fairly active lifestyle. He says the knee hurts worse than it did before his surgery. There is no history of any recent trauma. He denies fevers or chills. REVIEW OF SYSTEMS Review of Systems Constitutional: Negative for chills and fever. HENT: Negative for dental problem. Respiratory: Negative for shortness of breath. Cardiovascular: Negative for chest pain and palpitations. Musculoskeletal: Positive for gait problem and joint swelling. Hematological: Does not bruise/bleed easily. PHYSICAL EXAM Exam of the right knee shows normal limb alignment. He has full active extension. I measured flexion to 110?? today. There is a moderate-sized joint effusion present without any redness or warmth at the right knee. Stability exam of the right knee is normal. There is no calf pain or swelling. No localizable tenderness. IMAGING X-rays made today show a total knee replacement in good position. No evidence of loosening or wear DIAGNOSIS 1. Status post total right knee replacement 2. Effusion, right knee Plan: Right knee aspiration for diagnostic purposes as documented below. 40 cc of nonpurulent fluid was obtained will be sent to the lab for culture, cell count and Gram stain. Follow-up afterwards. Large Joint (Hip, Knee, Shoulder) Injection: R knee Performed by: Dougie Loera MD Authorized by: Dougie Loera MD Large Joint Injection/Aspiration: Consent Given by: Patient Timeout: prior to procedure the correct patient, procedure, and site was verified Verbal consent obtained: Yes Supporting Documentation: Indications: Pain Procedure Details: Location: Knee Site: R knee Prep: patient was prepped and draped in usual sterile fashion Needle Size: 18 G Approach: Superior lateral Aspirate amount (mL): 40 Aspirate: Clear and blood-tinged Patient tolerance: Patient tolerated the procedure well with no immediate complications documented in this encounter Miscellaneous Notes * Addendum Note - Brodie London MA - 10/05/2020 10:00 AM CDTAddended by: BRODIE LONDON on: 10/05/2020 10:40 AM Modules accepted: Orders documented in this encounter Plan of Treatment Scheduled Orders Name Type Priority Associated Diagnoses Orde r Schedule Synovial fluid, cell count Lab Routine Status post total right knee replacement Effusion, right knee Expected: 10/05/2020, Expires: 10/05/2021 Crystal Analysis, Body Fluid Lab Routine Status post total right knee replacement Effusion, right knee Expected: 10/05/2020, Expires: 10/05/2021 documented as of this encounter Procedures Procedure Name Priority Date/Time Associated Diagnosis Comments WI ARTHROCENTESIS ASPIR&/INJ MAJOR JT/BURSA W/O US Routine 10/05/2020 10:00 AM CDT Status post total right knee replacement Effusion, right knee documented in this encounter Results * WI ARTHROCENTESIS ASPIR&/INJ MAJOR JT/BURSA W/O US (10/05/2020 10:00 AM CDT) Narrative Dougie Loera MD - 10/05/2020 10:00 AM CDT Dougie Loera MD ? 10/05/2020 10:09 AM Large Joint (Hip, Knee, Shoulder) Injection: R knee Performed by: Dougie Loera MD Authorized by: Dougie Loera MD Large Joint Injection/Aspiration: ??Consent Given by: ??Patient ??Timeout: prior to procedure the correct patient, procedure, and site was verified ?Verbal consent obtained: Yes ?? Supporting Documentation: ??Indications: ??Pain Procedure Details: ??Location: ??Knee ??Site: ??R knee ??Prep: patient was prepped and draped in usual sterile fashion ?Needle Size: ??18 G ??Approach: ??Superior lateral ??Aspirate amount (mL): ??40 ??Aspirate: ??Clear and blood-tinged ??Patient tolerance: ??Patient tolerated the procedure well with no immediate complications us Dougie Loera MD IN CLINIC/BEDSIDE ORDERABLES Final Result documented in this encounter Visit Diagnoses Diagnosis Status post total right knee replacement Effusion, right knee documented in this encounter Care Teams Skill Labor Relationship Specialty Start Date End Date Deshawn Talbert MD [address] [place] [address] PCP - General Internal Medicine 09/07/19 12/27/22 documented as of this encounter
--- OUTSIDE RECORDS SUMMARY | 2024-04-26 21:38 | XMS_ITS | Encounter Summary ---
Author Organization [facility] Address [address] [facility] [address] [place] [address] Care Team Providers Care Medical Art Therapist Name Role Phone Deshawn Talbert MD Primary Care Provider [phone] [phone] Reason for Visit * Reason Comments Post-op Encounter Details Date Type Department Care Team (Late st Contact Info) Description 04/13/2020 10:00 AM MEDICAL AUDITOR Office Visit [facility] Orthopedics and Sports Medicine [address] [facility] [address] [place] [address] Dougie Loera MD [address] [place] [address] [address] [place], [place] [id number] Status post total right knee replacement (Primary Dx) Social History Tobacco Use Types Packs/Day Years Used Date Smoking Tobacco: Never Alcohol Use Standard Drinks/Week Comments Yes 0 (1 standard drink = 0.6 oz pur e alcohol) social Sex and Gender Information Value Date Recorded Sex Assigned at Not on file Legal Sex Male 7:48 AM MEDICAL AUDITOR Gender Identity Male 04/10/2021 6:39 AM MEDICAL AUDITOR Sexual Orientation Straight 03/15/2021 5: 03 PM MEDICAL AUDITOR 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 The patient is about 10 weeks status post right total knee arthroplasty. He has just completed his formal physical therapy and wants to continue a home exercise program. He also goes to the gym every day where he works on range of motion and some strengthening. He reports some soreness and pain after working out but no rest pain. He has return to work sometime ago. PHYSICAL EXAM Patient is walking well with no cane or crutch today. Exam of the right knee shows normal alignment. Well-healed surgical incision. Range of motion from full extension to 106?? measured today. He was able to get 110?? during therapy at his last note. Stability of the limb is normal and there is nocalf pain or swelling. IMAGING Prior x-rays are reviewed DIAGNOSIS 1. Status post total right knee replacement Plan: Continue individual exercise program. Follow-up recommended at the anniversary of surgery for routine x-rays or, sooner for problems. Procedures CAL AUDITOR documented in this encounter Plan of Treatment Not on file documented as of this encounter Visit Diagnoses Diagnosis Status post total right knee replacement- Primary documented in this encounter Discontinued Medications Medication Sig Discontinue Reason Start Date End Da te HYDROcodone-acetaminophe n (NORCO) 7.5-325 mg per tabletIndications:Pain,s /p rtkr Take 1-2 tablets every 4 hours as needed for pain 02/26/2020 04/13/2020 documented as of this encounter Historical Medications * This list may reflect changes made after this encounter. metoclopramide (REGLAN) 10 mg tablet TAKE 1 TABLET BY MOUTH EVERY 6 HOURS TAKE 30 MINUTES BEFORE MEALS AND AT BEDTIME 04/01/2020 03/14/2021 added in this encounter Care Teams Medical Art Therapist Relationship Specialty Start Date End Date Deshawn Talbert MD [address] [place] [address] PCP - General Internal Medicine 09/07/19 12/27/22 documented as of this encounter
--- OUTSIDE RECORDS SUMMARY | 2024-04-26 21:38 | XMS_ITS | Encounter Summary ---
Author Organization [facility] [employer] [facility] Address [address] [place] [address] Phone Care Team Providers Care Grid Casting Machine Operator Helper Name Role Phone Deshawn Talbert MD Primary Care Provider [phone] [phone] Reason for Referral * MRI/CAT/PET Scan (Routine) - Closed Specialty Diagnoses / Procedures Referred By Carlita love Referred To Contact Radiology Diagnoses Glenohumeral arthritis, right Procedures CT elbow right without contrast Jake Frias MD [address] [employer] [address] Phone: tel: fax: [address] [address] Referral ID Status Reason Start Date Expiration Date Visits Re quested Visits Authorized [id number] Closed 03/13/2021 04/12/2022 1 1 Reason for Visit * Reason Comments Pain Pain Encounter Details Date Type Department Care Team (Late st Contact Info) Description 03/13/2021 8:50 AM MLT Office Visit [facility] Orthopaedic Surgery [address] [facility] [address] [place] [id number] Jake Frias MD [address] [place] [address] Glenohumeral arthritis, right (Primary Dx) Social History Tobacco Use Types [...] on file Legal Sex Male 7:48 AM MLT Gender Identity Male 04/10/2021 6:39 AM MLT Sexual Orientation Straight 03/15/2021 5: 03 PM MLT 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 Not on file Not on file Not on file documented as of this encounter Last Filed Vital Signs Vital Sign Reading Time Taken Comments Blood Pressure - - Pulse - - Temperature - - Respiratory Rate - - Oxygen Saturation - - Inhaled Oxygen Concentration - - Weight 117.9 kg (260 lb) 03/13/2021 9:10 AM MLT Height 193 cm (6' 4 ) 03/13/2021 9:10 AM MLT Body Mass Index 31.65 03/13/2021 9:10 AM MLT documented in this encounter Progress Notes * Jake Frias MD - 03/13/2021 8:50 AM CST NEW PATIENT VISIT CHIEF COMPLAINT Pain of the Right Elbow and Pain of the Left Elbow HISTORY OF PRESENT ILLNESS Sreedhar Raymundo is a 60-year-old male who presents with bilateral elbow pain, right worse than left. This has been ongoing for many years and progressively worsening. Said any specific treatment for this but has taken anti- inflammatories in the past with diminishing efficacy. 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 His pain is especially worse at the end range of motion but he does have a dull pain throughout the day and throughout the entire arc of motion. He denies any significant paresthesias but does occasionally get some numbness in the entire right forearm and hand. He does have some stiffness when he wakes up in the morning especially in the hand. He was referred here for discussion of elbow arthroscopy by another orthopedic surgeon. PAST MEDICAL HISTORY He has a past medical history of Hypercholesteremia, Hypertension, and Osteoarthritis. PAST SURGICAL HISTORY He has a past surgical history that includes Back surgery; Achilles tendon repair (02/1992); Joint replacement; and Knee surgery (Right). INITIAL REVIEW OF MEDICATIONS He has a current medication list which includes the following prescription(s): hydrochlorothiazide,lisinopril, meloxicam, metoclopramide, and rosuvastatin. DRUG ALLERGIES He has No Known Allergies. SOCIAL HISTORY He reports that he has never smoked. He does not have any smokeless tobacco history on file. He reports current alcohol use. He reports that he does not use drugs. FAMILY HISTORY His family history includes Arthritis in his father; Cancer in his father; Heart disease in his father. PHYSICAL EXAMINATION On physical exam, he is in no acute distress. He is awake, alert, oriented x3. He is able to answerquestions appropriate participate in his exam. Focused examination of the right elbow, he can flex to 120?? and extend to 30?? short of full extension. He has pain at the extremes of motion. He can supinate to 70?? and pronate to 70??. He has no tenderness to palpation over the lateral epicondyle, medial epicondyle, or olecranon process. He hasnegative hook test. On focused examination of the left shoulder, he can flex to 95?? and extend to 30?? short of full extension. He can supinate to 70?? and pronate to 70??. He has no tenderness to palpation of the lateral epicondyle, medial epicondyle, or olecranon process. He has negative hook test. His bilateral motor and sensory exam demonstrates intact radial, ulnar, and median nerve distributions. REVIEW OF X-RAYS/STUDIES X-rays of the bilateral elbows that were previously obtained were reviewed by me today. These demonstrate bilateral elbow degenerative joint disease worse in the radial capitellar than the ulnar humeral joint with osteophyte formation. IMPRESSION/DIAGNOSIS Bilateral elbow degenerative joint disease TREATMENT PLAN I reviewed the potential options with the patient today. Reviewed continue conservative measures such as a subacromial injection. Reviewed surgical intervention in the form of osteo capsular arthroplasty. Reviewed the risks, benefits, anticipated outcomes, and required rehabilitation in detail. After review, he wished to proceed with arthroscopic osteo capsular arthroplasty. We reviewed that I would like to obtain a preoperative CT scan to evaluate the location of his osteophytes and plan for surgery. He would like to start with his right elbow as this is his more symptomatic side. FOLLOW-UP For surgery Jake Frias MD Tool Repairer [facility] Orth[facility] Surgery Shoulder and Elbow Service [facility] Orthopedics [facility] Dr. Mychal Frias dictating using [employer]. Cafeteria Counter Attendant variances may occur. documented in this encounter Plan of Treatment Not on file documented as of this encounter Results * CT elbow right without contrast (03/17/2021 2:19 PM MLT) Anatomical Region Laterality Modality Upper Extremities Right Computed Tomog jessica 03/17/2021 3:32 PM MLT Impressions 03/17/2021 3:32 PM MLT Moderate tricompartmental right elbow osteoarthritis with numerous loose bodies. Electronically signed by: John Melo M.D. Narrative 03/17/2021 3:32 PM MLT EXAMINATION: CT of the right elbow without contrast HISTORY: Right elbow osteoarthritis FINDINGS: CT of the right elbow was performed without intravenous contrast. Sagittal and coronal reformatted images were performed. Comparison is made to radiographs dated 02/01/2021. There is moderate tricompartmental elbow osteoarthritis. Multiple loose bodies are noted, the majority of these are located posteriorly within the olecranon fossa. Large osteophytes are noted arising from the coronoid process. There is no acute fracture of the elbow. Prominent marginal osteophytes are noted along the medial and lateral aspects of the elbow joint. Procedure Note John Melo MD PhD - 03/17/2021 EXAMINATION: CT of the right elbow without contrast HISTORY: Right elbow osteoarthritis FINDINGS: CT of the right elbow was performed without intravenous contrast. Sagittal and coronal reformatted images were performed. Comparison is made to radiographs dated 02/01/2021. There is moderate tricompartmental elbow osteoarthritis. Multiple loose bodies are noted, the majority of these are located posteriorly within the olecranon fossa. Large osteophytes are noted arising from the coronoid process. There is no acute fracture of the elbow. Prominent marginal osteophytes are noted along the medial and lateral aspects of the elbow joint. IMPRESSION: Moderate tricompartmental right elbow osteoarthritis with numerous loose bodies. Electronically signed by: John Melo M.D. Jake Frias MD IMG CT PROCEDURES Final Result documented in this encounter Visit Diagnoses Diagnosis Glenohumeral arthritis, right- Primary Glenohumeral arthritis, right documented in this encounter Orders Case Request Count Last Ordered Date First Orde red Date CASE REQUEST OPERATING ROOM 1 03/13/2021 documented in this encounter Care Teams Grid Casting Machine Operator Helper Relationship Specialty Start Date End Date Deshawn Talbert MD [address] [place] [address] PCP - General Internal Medicine 09/07/19 12/27/22 documented as of this encounter
--- OUTSIDE RECORDS SUMMARY | 2024-04-26 21:38 | XMS_ITS | Encounter Summary ---
Author Organization [facility] Address [address] [place] [address] Care Team Providers Care Conservation Specialist Name Role Phone Deshawn Talbert MD Primary Care Provider [phone] [phone] Reason for Referral * MRI/CAT/PET Scan (Routine) - Closed Specialty Diagnoses / Procedures Referred By Carlita love Referred To Contact Radiology Diagnoses Glenohumeral arthritis, right Procedures CT elbow right without contrast Jake Frias MD [address] [employer] [facility] [address] [place] [address] Phone: tel: fax: [address] [phone] Referral ID Status Reason Start Date Expiration Date Visits Re quested Visits Authorized [id number] Closed 03/13/2021 04/12/2022 1 1 UCT STEWARD Reason for Visit * MRI/CAT/PET Scan (Routine) - Closed Specialty Diagnoses / Procedures Referred By Carlita love Referred To Contact Radiology Diagnoses Glenohumeral arthritis, right Procedures CT elbow right without contrast Jake Frias MD [address] [facility] [address] [place] [address] Phone: tel: fax: [address] [phone] Referral ID Status Reason Start Date Expiration Date Visits Re quested Visits Authorized [id number] Closed 03/13/2021 04/12/2022 1 1 Encounter Details Date Type Department Care Team (Latest Contact Info) Description 03/17/2021 2:04 PM PRODUCT STEWARD - 03/17/2021 11:59 PM PRODUCT STEWARD Hospital Encounter [facility] Radiology at 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 file Not on file Not on file documented as of this encounter Medications at Time of Discharge acetaminophen ER (TYLENOL) 650 mg 8 hr tabletIndication s:Arthritic Pain Take 2 tablets (1,300 mg total) by mouth 2 (two) times a day hydroCHLOROthiaz ryan (HYDRODIURIL) 25 mg tabletIndication s:hypertension 1 tablet (25 mg total) 08/11/2019 lisinopriL (PRINIVIL,ZESTRI L) 20 mg tablet 07/09/2019 multivitamin capsuleIndicatio ns:Vitamin Deficiency Prevention Take 1 capsule by mouth every morning rosuvastatin (CRESTOR) 20 mg tabletIndication s:hyperlipidemia Take 1 tablet (20 mg total) by mouth every morning 07/19/2019 cephalexin (KEFLEX) 500 mg capsule Take 1 capsule (500 mg total) by mouth every 12 (twelve) hours for 10 days 20 capsule 04/11/2021 1 naproxen (NAPROSYN) 500 mg tablet Take 1 tablet (500 mg total) by mouth 2 (two) times a day for 14 days 28 tablet 04/11/2021 1 docusate sodium (COLACE) 100 mg capsuleIndicatio ns:constipation Take 1 capsule (100 mg total) by mouth 2 (two) times a day as needed for constipation (while taking narcotics) 30 capsule 1 04/11/2021 2 meloxicam (MOBIC) 15 mg tablet Take 15 mg by mouth every morning 07/09/2019 1 oxyCODONE (ROXICODONE) 5 mg immediate release tabletIndication s:Pain 1-2 tablets q4-6 hours PRN pain 40 tablet 04/11/2021 2 documented as of this encounter Discharge Disposition Disposition Code Departure Means Destination Discharge to home or self care documented in this encounter Plan of Treatment Not on file documented as of this encounter Procedures Procedure Name Priority Date/Time Associated Diagnosis Comments CT ELBOW RIGHT WO CONTRAST Schedule Routine, Read Routine (OP Routine) 03/17/2021 2:19 PM PRODUCT STEWARD Glenohumeral arthritis, right documented in this encounter Results * CT elbow right without contrast (03/17/2021 2:19 PM PRODUCT STEWARD) Anatomical Region Laterality Modality Upper Extremities Right Computed Tomog jessica 03/17/2021 3:32 PM PRODUCT STEWARD Impressions 03/17/2021 3:32 PM PRODUCT STEWARD Moderate tricompartmental right elbow osteoarthritis with numerous loose bodies. Electronically signed by: John Melo M.D. Narrative 03/17/2021 3:32 PM PRODUCT STEWARD EXAMINATION: CT of the right elbow without [...] this encounter Visit Diagnoses Diagnosis Glenohumeral arthritis, right documented in this encounter Care Teams Conservation Specialist Relationship Specialty Start Date End Date Deshawn Talbert MD [address] [place] [address] PCP - General Internal Medicine 09/07/19 12/27/22 documented as of this encounter
--- OUTSIDE RECORDS SUMMARY | 2024-04-26 21:38 | XMS_ITS | Encounter Summary ---
Author Organization [facility] Healthcare Address [address] [place] [address] Care Team Providers Care Carpet Renovator Name Role Phone Deshawn Talbert MD Primary Care Provider [phone] Encounter Details Date Type Department Care Team (Latest Contact Info) Description 04/11/2021 11:49 AM RECRUITER ACCOUNT MANAGER - 04/11/2021 7:13 PM RECRUITER ACCOUNT MANAGER Hospital Encounter [facility] [address] [place] [id number] Jake Frias MD [address] [facility] [place], [place] [id number] Discharge Disposition: Discharge to home or self [...] on file Legal Sex Male 7:48 AM RECRUITER ACCOUNT MANAGER Gender Identity Male 04/10/2021 6:39 AM RECRUITER ACCOUNT MANAGER Sexual Orientation Straight 03/15/2021 5: 03 PM RECRUITER ACCOUNT MANAGER 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 Not on file Not on file Not on file documented as of this encounter Last Filed Vital Signs Vital Sign Reading Time Taken Comments Blood Pressure 125/74 04/11/2021 6:55 PM RECRUITER ACCOUNT MANAGER Pulse 58 04/11/2021 7:00 PM RECRUITER ACCOUNT MANAGER Temperature 36.7 ??C (98.1 ??F) 04/11/2021 7:00 PM CS T Respiratory Rate 11 04/11/2021 7:00 PM RECRUITER ACCOUNT MANAGER Oxygen Saturation 94% 04/11/2021 7:00 PM RECRUITER ACCOUNT MANAGER Inhaled Oxygen Concentration - - Weight 119.2 kg (262 lb 12.8 oz) 2020 12:15 PM RECRUITER ACCOUNT MANAGER Height 193 cm (6' 4 ) 04/11/2021 12:15 PM RECRUITER ACCOUNT MANAGER Body Mass Index 31.99 04/11/2021 12:15 PM RECRUITER ACCOUNT MANAGER documented in this encounter Discharge Diagnoses Diagnosis Primary osteoarthritis, right shoulder - PRIMARY OSTEOARTHRITIS, RIGHT SHOULDER Pain in right elbow - PAIN IN RIGHT ELBOW Pain in joint, upper arm Osteophyte, right elbow - OSTEOPHYTE, RIGHT ELBOW Personal history of COVID-19 - PERSONAL HISTORY OF COVID-19 Essential (primary) hypertension - ESSENTIAL (PRIMARY) HYPERTENSION Unspecified essential hypertension Pure hypercholesterolemia, unspecified - PURE HYPERCHOLESTEROLEMIA, UNSPECIFIED Obstructive sleep apnea (adult) (pediatric) - OBSTRUCTIVE SLEEP APNEA (ADULT) (PEDIATRIC) Presence of right artificial knee joint - PRESENCE OF RIGHT ARTIFICIAL KNEE JOINT retirement (current) use of non-steroidal anti-inflammatories (nsaid) - POWER PLANT TECHNICIAN (CURRENT) USE OF NON-STEROIDAL ANTI-INFLAMMATORIES (NSAID) Other [facility] (current) drug therapy - OTHER ALF (CURRENT) DRUG THERAPY documented in this encounter Discharge Instructions * Discharge Instructions* Sahara Senior RN - 04/11/2021 6:24 PM RECRUITER ACCOUNT MANAGER [facility] Department of Orthopaedic Surgery Jake Frias M.D. Office [address] [facility] [address] [place] [address]/oper[address] heavy machinery for 24 hours. Do not make sign/authorize major decision for 24 hours. A responsible adult must be present for the first 24 hours after surgery. Have assistance with ambulation for first 24 hours after surgery Elbow Surgery Postoperative Instructions Medications ??? Take 1-2 tablets of oxycodone every 4-6 hours as needed for pain. ??? Try to taper your narcotic use as soon as you feel comfortable and taper to over the counter pain medication. Do not take additional Tylenol if you are taking Percocet, [place], or Vicodin. ??? You have been given a prescription for a stool softener, Colace. This medication is routinely used as pain medicines can be very constipating. Please take as directed unless you experience loose stools or diarrhea. ? You have been given a prescription for oral antibiotics. Because the risk of infection after elbow surgery is slightly higher than other types of surgery, you are instructed to take these antibiotics as directed, as a precaution. ? You have been given a prescription of an anti-inflammatory (Indomethacin or Naproxen). Please take this until the bottle is finished. Make sure to take with a full stomach. Do not take with other NSAID medications (Ibuprofen, Aleve, Motrin, etc). If you have stomach problems with the medication, you may stop it. Diet ??? Resume a regular diet as tolerated. Sling/Brace ??? Maintain the operative arm in the dressing that was placed at the time of surgery. ??? Use the sling as needed for support of the arm. Activity ??? You may gradually increase your physical activity as the effects of the anesthetics wear off and your strength improves. ??? Elevation is critically important following elbow surgery. For the first 48 hours you should keep your elbow elevated the majority of the time. This requires you to lay flat or slightly inclined with your hand at a height above your elbow and your elbow above your heart. Generally, this requires pillows under the elbow and pillows under the hand on the belly or chest. ??? Perform range of motion and gentle gripping activities with your hand to stimulate circulation. * If you are not casted,splinted then you may begin gentle range of motion exercises to the elbow and forearm as instructed by your doctor beginning on the day after surgery. Ice * You may apply ice to the operative site over your bandage/splint. The effects of the ice will likely penetrate the thick dressing/splint. You should ice the elbow 3-4 times a day for 45 minutes at a time. Dressing Care ??? Keep the post operative dressing intact and dry. ??? You may remove your dressing on post-operative day 5 following surgery if allowed by your physician. ??? Do not remove the dressing until seen by your physician. ??? Some slight drainage through the dressing is common and is most often noted on the 2nd or 3rd post operative day. Do not be alarmed. * This applies to your elbow. Your elbow is splinted straight. On the first postoperative day, remove the outer VANESA wrap and remove the hard splint on the front of your elbow. There will be another VANESA wrap underneath the splint. Leave this VANESA wrap in place and keep clean/dry until follow-up. You may begin to range the elbow once the splint is removed. Follow Up ??? Generally, a follow up appointment has been made for you at the time of surgery. You can call the Orthopaedics scheduling center [phone] to confirm your follow up appointment. Notify our office if you have any of the following: * Fever over 101.5 degrees. * Excessive blood on your dressing. * Numbness or tingling in your arm or hand that was not present before surgery and has lasted more than 24 hours. * Drainage from any incision that last longer than 5 days following surgery UITER ACCOUNT MANAGER documented in this encounter Medications at Time of Discharge [...] taking narcotics) 30 capsule 1 04/11/2021 2 oxyCODONE (ROXICODONE) 5 mg immediate release tabletIndication s:Pain 1-2 tablets q4-6 hours PRN pain 40 tablet 04/11/2021 2 documented as of this encounter Ordered Prescriptions Prescription Sig Dispense Quantity Refills Last Filled Start Date End Date cephalexin (KEFLEX) 500 mg capsule Take 1 capsule (500 mg total) by mouth every 12 (twelve) hours for 10 days 20 capsule 04/11/2021 1 naproxen (NAPROSYN) 500 mg tablet Take 1 tablet (500 mg total) by mouth 2 (two) times a day for 14 days 28 tablet 04/11/2021 1 docusate sodium (COLACE) 100 mg capsuleIndication s:constipation Take 1 capsule (100 mg total) by mouth 2 (two) times a day as needed for constipation (while taking narcotics) 30 capsule 1 04/11/2021 2 oxyCODONE (ROXICODONE) 5 mg immediate release tabletIndications :Pain 1-2 tablets q4-6 hours PRN pain 40 tablet 04/11/2021 2 documented in this encounter Discharge Disposition Disposition Code Departure Means Destination Discharge to home or self care documented in this encounter H&P Notes * Pippa Resendiz NP - 04/11/2021 12:07 PM CST Outpatient Pre-Procedure History and Physical Subjective Patient is a 60 y.o. male with chief complaint of right elbow pain. Indication For Procedure: Pre-op Diagnosis * Glenohumeral arthritis, right [M19.011] Planned Procedure RIGHT ELBOW ARTHROSCOPY WITH OSTEOCAPSULAR ARTHROPLASTY (R) HPI: Past Medical History: Diagnosis Date ??? COVID-19 03/17/2021 resolved ??? Hypercholesteremia on statin ??? Hypertension well controlled ??? ADRIANO (obstructive sleep apnea) wears CPAP ??? Osteoarthritis Past Surgical History: Procedure Laterality Date ??? ACHILLES TENDON REPAIR 02/1992 ??? BACK SURGERY ??? JOINT REPLACEMENT Right knee. hardware in place. ??? KNEE SURGERY Right rtkr Medications Prior to Admission Medication Sig Dispense Refill Last Dose ??? acetaminophen ER (TYLENOL) 650 mg 8 hr tablet Take 1,300 mg by mouth 2 (two) times a day 03/14/2021 at Unknown time ??? hydroCHLOROthiazide (HYDRODIURIL) 25 mg tablet 25 mg 03/14/2021 at Unknown time ??? lisinopriL (PRINIVIL,ZESTRIL) 20 mg tablet 03/14/2021 at Unknown time ??? meloxicam (MOBIC) 15 mg tablet Take 15 mg by mouth every morning 03/13/2021 at Unknown time ??? multivitamin capsule Take 1 capsule by mouth every morning 03/14/2021 at Unknown time ??? rosuvastatin (CRESTOR) 20 mg tablet Take 20 mg by mouth every morning 03/14/2021 at Unknown time No Known Allergies Social History Tobacco Use ??? Smoking status: Never Smoker ??? Smokeless tobacco: Never Used Substance Use Topics ??? Alcohol use: Yes Comment: social Social History Substance and Sexual Activity Drug Use Yes ??? Types: Alcohol Comment: reports h/o alcohol abuse ~25 years ago. Reports ~0-3 drinks/week currently. Vitals: 03/14/21 1720 Weight: 115.7 kg (255 lb) Height: 193 cm (6' 4 ) Review of Systems: Review of systems per HPI and otherwise all other systems are negative Physical exam: Lungs: clear to auscultation bilaterally Heart: regular rate and rhythm, S1, S2 normal, no murmur, click, rub or gallop Neurologic: Alert and oriented x4, grossly intact Pippa Resendiz NP Cosigned by Jake Frias MD at 04/12/2021 9:35 AM RECRUITER ACCOUNT MANAGER UITER ACCOUNT MANAGER UITER ACCOUNT MANAGER documented in this encounter Miscellaneous Notes * Perioperative Nursing Note - Sahara Senior RN - 04/11/2021 6:11 PM RECRUITER ACCOUNT MANAGER 1721 - Pt admitted to PACU from OR, VSS. Pt sleepy, but arouses to voice, reports pain. RUE elevated on pillow x 2, ice pack applied to elbow. OR splint intact to RUE, arm splinted straight. Bed in lowest and locked position, side rails up x2. 1726 - Dr. Mike at bedside for neuro check. Pt's RUE neuro intact per jerod Khan for nerve block. 1733 - Dr. Fontaine at bedside for nerve block, pt tolerated well, see anesthesia note. 1751 - Pt still rates pain 9/10 (was 10/10), IVP fentanyl given. 1813 - Pt now rating pain 7/10, pt unable to move fingers. PO pain meds given. 1820 - Pt's to bedside. 183 - Pt assisted to recliner, tolerated well. Pt encouraged to cough and deep breathe. 184 - AVS reviewed at bedside with pt and pt's . All questions answered and understanding verbalized. 184 - Pt instructed on and given IS. Pt demonstrated understanding. 190 - IV removed, catheter tip intact, dressing applied. Monitors removed, pt dressed with RN assistance, tolerated well. 1906 - pt assisted to wheelchair and taken to bathroom, voided without difficulty. UITER ACCOUNT MANAGER * Op Note - Jake Frias MD - 04/11/2021 3:05 PM CST Operative Report SURGEON: Jake Frias MD SURGICAL TEAM: Surgeon(s) and Role: * Jake Frias MD - Primary * Miguel Mcguire MD - Resident - Assisting DATE OF SURGERY : 04/11/2021 PREOPERATIVE DIAGNOSIS: Pre-op Diagnosis * Glenohumeral arthritis, right [M19.011] POSTOPERATIVE DIAGNOSIS: same PROCEDURE PERFORMED: RIGHT ELBOW ARTHROSCOPY WITH OSTEOCAPSULAR ARTHROPLASTY, ULNAR NERVE DECOMPRESSION, AND LOOSE BODY REMOVAL (R) INDICATION FOR PROCEDURE: The patient was seen in the office with ongoing elbow pain. They failed nonoperative treatment modalities. We discussed the risks and benefits of surgery and informed consent was obtained. ANESTHESIA: General Estimated Blood Loss: No blood loss documented. PROCEDURE: Patient was taken to the OR, placed under general endotracheal anesthesia, placed in the lateral decubitus position, and then the operative upper extremity was prepped and draped in the usual sterilefashion. Initially, the arm was then exsanguinated with an Esmarch bandage, and tourniquet brought up to 250 mmHg. The joint was insufflated with 30 mL of normal saline, and then entered from the medial side. Entrance showed good visualization. An anterolateral port was quickly established. Synovectomy was performed with a full radius resector and anterior humeral osteophytes were debrided with the shaver. The shaver was used to remove osteophytes along the proximal portion of the coronoid fossa was removed off the humerus. The coronoid itself was not beaked and no other osteophytes required removal. At this point, the scope was brought into the lateral side and the remaining portion the medial osteophytes were removed from the direct medial portal. At this point, an incision centered over the cubital tunnel was made. The cubital tunnel was then unroofed with blunt and sharp dissection.The ulnar nerve was fully decompressed from the proximal extent of the cubital tunnel to the heads of the FCU. The scope was withdrawn and placed into the posterior compartment with 1 posterior lateral and 1 straight posterior portals. Excellent visualization was obtained. A capsulectomy was performed posterior followed by removal of osteophyte on the proximal portion of the olecranon fossa whichwas causing abutment against the olecranon tip posteriorly. The olecranon tip was also removed of osteophytes. Inspection of the gutters found significant scarring and synovitis but no other loose bodies and at this point, the instruments were withdrawn. At this point, tourniquet was deflated and pressure was held for 5 minutes. The ulnar nerve was investigated and found to be intact and stable within the groove. Portal sites and the incision were closed in simple fashion. A bulky dressing withAce wrap compression and splint in extension was applied. Anesthesia was reversed. The patient wentto recovery room having tolerated the procedure well. In the recovery area, he was found to be fully neurovascularly intact and a block was offered. Complications: None Condition on Discharge from the operating room was stable Was a Resident involved in this case? Yes I was present and I participated in all critical portions of the case including the anterior and posterior compartment arthroscopy. I was immediately available for all non critical portions of the procedure. Jake Frias MD Date: 04/12/2021 Time: 3:47 PM UITER ACCOUNT MANAGER UITER ACCOUNT MANAGER * Perioperative Nursing Note - Denise Pedro RN - 04/11/2021 12:27 PM RECRUITER ACCOUNT MANAGER Patient's Asmita is here with patient and will care for him for 24 hours after surgery. UITER ACCOUNT MANAGER * Pre-Procedure Instructions - Evelyn Alford RN - 04/10/2021 8:18 AM CST We are pleased that you and your doctor have chosen [facility] for your surgery. We hope the following information will help make your visit a pleasant one. The name of the building is [facility] in [place]. Directions to facility (address is [address] [place] [address] [address] [facility] [address] [facility] exit. [place] [address] When you enter the building, look directly to your left, you will see 2 glass double doors. These double doors say [address]. Go through those double doors and check in with the cloth bleaching range back tender. Bring pillows, leave in car. Pt. Has Gel packs Wear loose fitting clothes. Something with an elastic waist on the bottom, such as gym shorts or sweat pants depending on the weather. T-shirt on top or a shirt with a loose sleeve unless you are having shoulder surgery then wear a loose fitting button down shirt or a shirt that zips up the front. DO NOT eat or drink ANYTHING after Midnight, unless instructed to take medication by MECHANICAL SERVICE TECHNICIAN at CPAP. Nogum, no mints, no candy, no cough drops, CBD oil, no marijuana, no Chewing tobacco, or vaping. No ice or water. You may brush your teeth, just make sure you spit it all out. Pt's. -Asmita [phone] will be with patient and care for patient for the first 24 hours post-op. Pt. Instructed to arrive at 1145 for 1345 procedure. Procedure is scheduled for 2 hour(s). Explained to patient, if you develop any symptoms of fever, chills, headache, cough, sore throat, body aches or is exposed to anyone that has been diagnosed, tested or quarantined for the COVID-19 you will not be allowed to enter the building or to have your surgery per anesthesia's guidelines. Explained to patient that all patient's and visitor's will be screened at the front door upon entering the building. Explained to patient to please call the morning of surgery, any time after 5:30 a.m. if you or your caregiver develops any of these symptoms or is exposed to anyone that has been diagnosed, tested or quarantined for COVID-19. Pt. Reports understanding. Once your physician has completed your surgery, he will call your caregiver to notify them your surgery is complete, and you are heading to the Recovery room. Your caregiver will not be called back to be with you until you are awake and ready for discharge. The nurse who is caring for you will callyour caregiver to come back to be with you for discharge instructions. Explained to patient that the self-serve cafe is across the lama from the surgery center. Explainedto patient if their caregiver would like anything to eat or drink, they may bring their own or purchase it from the refreshment area. UITER ACCOUNT MANAGER * Pre-Procedure Instructions - Rose Mcneal NP - 03/15/2021 3:38 PM CST Center for Preoperative Assessment and Planning CPAP Clinic Location: [facility] CPAP The night before your surgery: * Do not eat anything after midnight the night before your procedure. The morning of your surgery: * You may have clear liquids on your surgery day. You must stop drinking two hours before you arrive to the surgery facility. Acceptable clear liquids include water, clear sports drinks, black coffee, or clear soda. DO NOT drink any milk, creamer, or alcohol. * Your surgeon's office may have provided additional instructions or restrictions. Please follow those instructions. ?? * You may brush your teeth and rinse your mouth out. * Do not wear jewelry, body piercings, makeup, hairpins, false eyelashes or contact lenses to the hospital. * Leave any valuables at home or with your family. Outpatient Surgery: * You must have a responsible adult drive you home and stay with you for 24 hours after your surgery * You cannot be alone at home or in a hotel * Please call your surgeon's office if you do not have someone to drive you home and/or stay with you after surgery * Please bring any items you may need to spend the night in the hospital. Sometimes patients need to be cared for in the hospital overnight. If you have Sleep Apnea (ADRIANO): * Bring your CPAP/BiPAP/VPAP machine to the hospital the day of your surgery * For a few days after your surgery, you will need to wear your CPAP/ BiPAP/VPAP machine any time your are sleeping. This includes when you take a nap. Instructions For Your Medications: Pre-Surgery Instructions: Medication Instructions ??? acetaminophen ER (TYLENOL) 650 mg 8 hr tablet Take on day of surgery if needed ??? hydroCHLOROthiazide (HYDRODIURIL) 25 mg tablet Don't take on day of surgery ??? lisinopriL (PRINIVIL,ZESTRIL) 20 mg tablet Don't take on day of surgery ??? meloxicam (MOBIC) 15 mg tablet Take on day of surgery if needed ??? multivitamin capsule Stop taking 1 week prior to surgery ??? rosuvastatin (CRESTOR) 20 mg tablet Take morning of surgery General Instructions For Medications: ?? * If prescribed a non-steroidal anti-inflammatory such as Meloxicam, Celebrex, or Naproxen by your surgeon, take as prescribed and follow your surgeon's instructions for all other non-steroidal anti-inflammatory medications prior to your surgery. ?? For medications that you are instructed to take on the morning of surgery, take the medications with a few sips of water. ?? Stop all of these medications 7-14 days prior to your surgery: Vitamin E, Herbal medicines, DietPills ?? If you have pain, you may take tylenol (acetaminophen). Do not take more than 6 tablets or 3000 mg (3 g) within a 24 period. Call your surgeon and the CPAP clinic if any of the following happens before surgery: ?? Any changes in your health ?? You have a fever ?? You have any signs of an infection (chest, urinary tract or tooth) ?? You have been to the Emergency Room or were in the hospital ?? You have started taking any new medications ?? You have questions about a bowel prep or special diet before surgery UITER ACCOUNT MANAGER * Perioperative Nursing Note - Xochitl Cooper - 03/14/2021 5:29 PM CST [place] for Preoperative Assessment and Planning Perioperative Nursing Note Telephone Preoperative Evaluation ([facility]) - TELEPHONE ONLY, NO PHYSICAL EXAM Date: 03/14/21 Vitals: 03/14/21 1720 Weight: 115.7 kg (255 lb) Height: 193 cm (6' 4 ) CHEST CIRCUMFERENCE: Social History Tobacco Use Smoking Status Never Smoker Smokeless Tobacco Never Used Substance and Sexual Activity Drug Use Never Alcohol Use How often do you have a drink containing alcohol?: 2-4 times a month How many drinks containing alcohol do you have on a typical day when you are drinking?: 1 or 2 How often do you have six or more drinks on one occasion?: Never Outpatient Medications Marked as Taking for the 03/21/21 encounter (Hospital Encounter) Medication Sig Dispense Refill ??? acetaminophen ER (TYLENOL) 650 mg 8 hr tablet Take 1,300 mg by mouth 2 (two) times a day ??? hydroCHLOROthiazide (HYDRODIURIL) 25 mg tablet 25 mg ??? lisinopriL (PRINIVIL,ZESTRIL) 20 mg tablet ??? meloxicam (MOBIC) 15 mg tablet Take 15 mg by mouth every morning ??? multivitamin capsule Take 1 capsule by mouth every morning ??? rosuvastatin (CRESTOR) 20 mg tablet Take 20 mg by mouth every morning Implants No active implants to display in this view. 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 Needs Communication Needs: Glasses Assistive Devices/DME: Eyeglasses Hearing - Right Ear: Functional Hearing - Left Ear: Functional Discharge Planning Type of Residence: Private residence Living Arrangements: Spouse/significant other Support Systems: Spouse/significant other ( to be lease purchase truck driver and caregiver) Patient expects to be discharged to:: Private residence COVID Screening Covid-19 Screening In the last 10 days have you had any new or worsening cough, SOB, fever (>=100F), body aches, loss of taste or smell, diarrhea or vomiting, or sore throat?: No Have you had close contact with anyone with confirmed or suspected COVID-19 in the past 2 weeks?: No Do you live in or work in a congregate living facility (ex. assisted living/penitentiary facility, shelter, long term)?: No Have you tested positive for COVID-19 within the last 14 days?: No Have you previously tested positive for COVID-19? No Have you had a COVID -19 exposure within the past 14 days? No Were both or all people exposed wearing masks (cloth, isolation, surgical or N95)? N/A TESTING PLAN-See Instructions for plan We recommend you Self-Isolate after COVID Testing: Stay at home, if possible until your surgery date. Maintain a 6 foot distance from other people (social distancing). Avoid touching your eyes, nose and mouth with unwashed hands. Wash your hands often with soap and water for at least 20 seconds. Use an alcohol- based hand manager distribution center that contains at least 60% alcohol if soap and water are not available. ADDITIONAL COMMENTS/ FOLLOW UP UITER ACCOUNT MANAGER * Pre-Procedure Instructions - Xochitl Cooper - 03/14/2021 5:28 PM CST [facility] PRE-SURGICAL NURSING INSTRUCTIONS Telephone Assessment General Information Discussed with Patient: 1. Surgery location provided to patient. 2. Arrival time and surgical time will be provided to the patient by their surgeon. 3. You should wear clothing that is clean, loose, comfortable and easy to get in and out of on the day of surgery. 4. You should leave your valuables and any jewelry at home. No metal or piercings are allowed in the operating room. 5. You should bring your insurance card, a photo ID (example: Protection Analyst's License) and a method of payment for any insurance copay, deductible or copay for discharge medications. 6. You should bring a complete, up-to-date list of all your medications on the day of surgery, including any over the counter medications or supplements you may take. 7. You should bring your Advanced Directive and/or Living Will with you on the day of surgery if you have not verified a copy is already in your Epic Chart. How To Prepare Your Skin For Surgery 2 Day Scrub Instructions: Antiseptic/antibacterial soap will decrease the amount of germs on your skin. It is important to minimize the risk of getting an infection by doing the following: The Evening Before Surgery 1. Change all the linens on the bed the night before surgery so you are sleeping on clean fresh sheets and pillowcases. Remove nail coverings, artificial nails and nail [place] islander. 2. Wash your hair and face with your regular shampoo (no conditioners) and facial cleanser. First, shampoo and rinse your hair with your own shampoo. Do this so the chlorhexidine scrub is not washed off by your shampoo. 3. Take a shower using ?? cup (2 oz.) of a surgical soap known as chlorhexidine gluconate-CHG 4% (Brand name: Hibiclens). You may purchase this soap at a pharmacy or department store or come by our CPAP clinic and we will give it to you free of charge. 4. Use a clean washcloth to apply the chlorhexidine soap to all areas. Scrub your body from the neck down. Ask someone to wash your back if you are unable to do this yourself. Make sure to wash your arms and armpits, behind your ears, your legs and behind your knees, your feet, your groin area and between or under your skin folds. Do not use chlorhexidine on genital area, face, eyes, ears, mouth or hair. The soap will not bubble or lather very much. That is OK. If you get the soap in your eyes,ears or mouth, rinse well with water. Step out of the water and leave soap on your skin for 2 minutes prior to rinsing off. Rinse thoroughly and dry yourself off with a clean fresh dry towel. 5. Wear clean clothes or pajamas to sleep in that night. 6. DO NOT place anything extra on the skin or hair such as deodorant, make-up, hair products, lotions, powders, Vaseline, creams, oils, conditioners or perfumes. The Morning of the Surgery: The morning of the surgery, you will repeat the shower process. 1. Wash your hair and face with your regular shampoo (no conditioners) and facial cleanser. First, shampoo and rinse your hair with your own shampoo. Do this so the chlorhexidine scrub is not washed off by your shampoo. 2. Shower with the remaining ?? cup (2 oz.) of the antiseptic soap with another fresh washcloth andtowel. 3. Use a clean washcloth to apply the chlorhexidine soap to all areas. Scrub your body from the neck down. Ask someone to wash your back if you are unable to do this yourself. Make sure to wash your arms and armpits, behind your ears, your legs and behind your knees, your feet, your groin area and between or under your skin folds. Do not use chlorhexidine on genital area, face, eyes, ears, mouth or hair. The soap will not bubble or lather very much. That is OK. If you get the soap in your eyes,ears or mouth, rinse well with water. Step out of the water and leave soap on your skin for 2 minutes prior to rinsing off. Rinse thoroughly and dry yourself off with a clean fresh dry towel. 4. Wear clean fresh clothes after you shower. 5. DO NOT shave the morning of surgery. 6. DO NOT place anything extra on the skin or hair such as deodorant, make-up, hair products, lotions, powders, Vaseline, creams, oils, conditioners or perfumes. If you are unable to obtain the chlorhexidine gluconate-CHG 4% soap, you may wash the night before and the morning of surgery with an antibacterial soap, such as Dial. You may call the [facility] (Pre-Testing) Department: Saturday-Saturday from 8am-5pm with questions @ [phone]. COVID TESTING PLAN: Please note, the below is the Pre-Procedure COVID Testing Plan for the [facility] for Anest[facility]. Surgeon's offices may require additional testing. If so, the surgeon's office will reach out to the patient to discuss further testing. Patient's COVID-19 vaccination status: Patient states that they are fully COVID vaccinated and COVID vaccination information verified through [facility] Immunization Registry Database. COVID Test Plan: COVID Test Request Placed in Epic to [facility]. HOLIDAY hours may vary at testing site. Test jay jay performed on 03/18/21 [place] [address], M-F 8a-8p, Sat/Sun 8a-8p. If you are going to a [facility] Testing Site for COVID testing, please arrive at least 30 minutes PRIOR to lab closing time. If you have COVID testing or should have COVID testing for your surgery/procedure, please read below section: If you need to reschedule your COVID test to a different location or if your surgery gets rescheduled, you MUST call [phone] Saturday-Saturday 8am-4:30pm to get your COVID testing rescheduled or your lab order will not be available at Testing Sites. COVID Testing is only valid for up to 96 hours prior to surgery date, unless otherwise specified. If you are unable to reach staff at the above phone number, please call the CPAP Staff at [phone]. This number cannot order a lab test, but can attempt to contact the above number/staff to assist you. [facility]AP Staff are available Saturday- Saturday 8am-5pm. We recommend you Self-Isolate after COVID Testing: Stay at home, if possible, until your surgery date. Maintain a 6-foot distance from other people (social distancing) and wear a face mask if you areable. Avoid touching your eyes, nose and mouth with unwashed hands. Wash your hands often with soapand water for at least 20 seconds. Use an alcohol-based hand manager distribution center that contains at least 60% alcohol if soap and water are not available. These are general guidelines, but if have been told by aphysician that you should not perform any of the above, please follow physician's guidelines. All patients should read below section: All visitors/patients are being asked to wear a clean face mask when entering the hospital. COVID 19 Updates & Visitor Policy: Please access [email or web address] for the most updated information. Information on [facility]: Please view [email or web address] (Patient & Visitor Information) for additional details regarding Advanced Directive forms, AWARE, directions, parking information, lodging, Internet access, dining and more. Information on [facility]: Please view [email or web address] (Patient and Visitor Information) for parking/directions and more. For MyChart information, to activate account or password recovery, please go to [email or web address] or call [phone] (toll-free: [phone]). Information for Suicide Prevention: National Suicide Prevention Lifeline (2-899- 364-KVZK (0661)). Surgery Times: For patients having surgery @ [facility], if your surgeon's office has not notified you of your surgery time by NOON THE BUSINESS DAY BEFORE your surgery, please call the surgery center [phone]. UITER ACCOUNT MANAGER documented in this encounter Plan of Treatment Not on file documented as of this encounter Procedures Procedure Name Priority Date/Time Associated Diagnosis Comments ARTHROSCOPY ELBOW WITH OSTEOCAPSULAR ARTHROPLASTY 04/11/2021 2:30 PM RECRUITER ACCOUNT MANAGER Glenohumeral arthritis, right Special Needs +COVID 03/17/21 and was asymptomatic - retesting not indicated per CPAP note POCT PREOP SCREEN ([id number] BG-HCT) Routine 04/11/2021 12:35 PM RECRUITER ACCOUNT MANAGER documented in this encounter Results * POCT Preop screen ([id number]) (04/11/2021 12:35 PM RECRUITER ACCOUNT MANAGER) K POC 4.3 3.3 - 4.9 mmol/L JESSY RAO Comment: Interpretive Data Unable to assess hemolysis. ??Invitro hemolysis causes falsely elevated potassium. Current Interpretive Data was last revised on 2019. Blood 04/11/2021 12:3 5 PM RECRUITER ACCOUNT MANAGER 04/11/2021 12:35 PM RECRUITER ACCOUNT MANAGER us Jake Frias MD LAB POCT ORDERABL ES - DEVICE Final Result JESSY RAO [facility] Department [place] [address] documented in this encounter Visit Diagnoses Diagnosis Glenohumeral arthritis, right- Primary documented in this encounter Admitting Diagnoses Diagnosis Glenohumeral arthritis, right documented in this encounter Administered Medications Inactive Administered Medications - up to 3 most recent administrations Medication Order MAR Action Action Date Dose Rate Site fentaNYL (SUBLIMAZE) preservative free syringe 25 mcg 25 mcg, intravenous, Every 5 min PRN, 1st line for pain, uncontrolled pain on PACU admission to PACU., Starting on Sat04/11/21 at 1749, For 4 doses, Phase I, Use as 1st line for very severe pain upon admission to PACU, dose not to exceed 100 mics. Then proceed to second line pain meds after consulting with anesthesiologist., Indications: PainIndications:Pain Given 04/11/2021 5:51 PM RECRUITER ACCOUNT MANAGER 25 mcg Lactated Ringer's (LR) infusion 30 mL/hr, intravenous, Continuous, Starting on Sat04/11/21 at 1230, Pre-Op, Use a 500 ml bag for End Stage Renal Disease Patients New Bag 04/11/2021 3:29 PM RECRUITER ACCOUNT MANAGER Rate/Dose Verify 04/11/2021 2:25 PM RECRUITER ACCOUNT MANAGER 30 mL/h r New Bag 04/11/2021 12:48 PM RECRUITER ACCOUNT MANAGER 30 mL/hr 30 mL/hr lidocaine PF (XYLOCAINE) 10 mg/mL (1 %) preservative free injection 2-10 mg 2-10 mg (0.2-1 mL), other, Once as needed, pain with IV placement, Starting on Sat04/11/21 at 1156, For 1 dose, Pre-Op, Administer volume needed to infiltrate IV site. Given 04/11/2021 12:48 PM RECRUITER ACCOUNT MANAGER 2 mg oxyCODONE (ROXICODONE) tablet 5 mg 5 mg, oral, Once, On Sat04/11/21 at 1845, For 1 dose, Phase I & Post-op Floor, Indications: PainIndications:Pain Given 04/11/2021 6:12 PM RECRUITER ACCOUNT MANAGER 5 mg documented in this encounter Discontinued Medications Medication Sig Discontinue Reason Start Date End Da te metoclopramide (REGLAN) 10 mg tablet TAKE 1 TABLET BY MOUTH EVERY 6 HOURS TAKE 30 MINUTES BEFORE MEALS AND AT BEDTIME Error 04/01/2020 03/14/2021 meloxicam (MOBIC) 15 mg tablet Take 15 mg by mouth every morning Stop Taking at Discharge 07/09/2019 04/11/2021 documented as of this encounter Historical Medications * This list may reflect changes made after this encounter. acetaminophen ER (TYLENOL) 650 mg 8 hr tabletIndications :Arthritic Pain Take 2 tablets (1,300 mg total) by mouth 2 (two) times a day multivitamin capsuleIndication s:Vitamin Deficiency Prevention Take 1 capsule by mouth every morning added in this encounter Active and Recently Administered Medications Times are shown in RECRUITER ACCOUNT MANAGER. Scheduled Medication Order 04/09/2021 04/10/2021 04/11/2021 ceFAZolin (ANCEF) 2,000 mg/50 mL in dextrose (premix) 2,000 mg (COMPLETED) 2,000 mg, intravenous, at 100 mL/hr, Administer over 30 Minutes, Once, On Sat04/11/21 at 1230, For 1 dose, Pre-Op, Administer within 60 minutes of incision. Duplex bag - activate before hanging. , Indications: Prophylaxis, Surgical 1433 (Given - Provid er: Malika Miranda CRNA) oxyCODONE (ROXICODONE) tablet 5 mg (COMPLETED) 5 mg, oral, Once, On Sat04/11/21 at 1845, For 1 dose, Phase I & Post-op Floor, Indications: Pain 1811 (Given - Provid er: Sahara Senior RN) scopolamine patch 72 hour 1 patch 1 patch, transdermal, Administer over 72 Hours, Once, On Sat04/11/21 at 1230, For 1 dose, Pre-Op, Apply to beach-chair position shoulder surgery patients, and to patients with a history of PONV and/or Motion Sickness. Do NOT administer to patients with a history of BPH or Glaucoma. Consult Anesthesiologist with any questions. In case of urinary retention, remove patch immediately and clean patch site with alcohol., Indications: Motion Sickness, Prevention of Motion Sickness, Prevention of Post-Operative Nausea and Vomiting 1230 (Due) Continuous Medication Order 04/09/2021 04/10/2021 04/11/2021 Lactated Ringer's (LR) infusion (CANCELED) 30 mL/hr, intravenous, Continuous, Starting on Sat04/11/21 at 1230, Pre-Op, Use a 500 ml bag for End Stage Renal Disease Patients 1248 (New Bag - Prov ider: Denise Pedro RN)1425 (Rate/Dose Verify - Provider: Malika Miranda CRNA)1528 (Paused - Provider: Malika Miranda CRNA - Comment: Switch to gravity)1529 (New Bag - Provider: Malika Miranda CRNA)1707 (Anesthesia Volume Adjustment - Provider: Nancy Slaughter CRNA)1726 (Anesthesia Volume Adjustment - Provider: Li Roy CRNA)1825 (Stopped - Provider: Sahara Senior RN) Lactated Ringer's (LR) infusion 125 mL/hr, intravenous, Continuous, Starting on Sat04/11/21 at 1830, Phase I 1730 (Continued from OR - Provider: Sahara Senior RN)1907 (Stopped - Provider: Sahara Senior RN) PRN Medication Order 04/09/2021 04/10/2021 04/11/2021 acetaminophen (TYLENOL) tablet 500 mg 500 mg, oral, Every 6 hours PRN, headaches, other, Breakthrough Pain and Supplement to other pain meds, Starting on Sat04/11/21 at 1749, Phase I, When able to tolerate PO after consulting with Anesthesiologist. Do not administer if patient already received Acetaminophen-containing medications in PACU., Indications: Pain diphenhydrAMINE (BENADRYL) injection 12.5 mg 12.5 mg, intravenous, Administer over 1 Minutes, Every 5 min PRN, itching, other, For Nausea, administer 25 mg IV., Starting on Sat04/11/21 at 174, For 4 doses, Phase I, Max cumulative dose 50 mg., Indications: Itching fentaNYL (SUBLIMAZE) preservative free syringe 25 mcg 25 mcg, intravenous, Every 5 min PRN, 1st line for pain, uncontrolled pain on PACU admission to PACU., Starting on Sat04/11/21 at 174, For 4 doses, Phase I, Use as 1st line for very severe pain upon admission to PACU, dose not to exceed 100 mics. Then proceed to second line pain meds after consulting with anesthesiologist., Indications: Pain 1750 (Given - Provid er: Sahara Senior RN) hydrALAZINE (APRESOLINE) injection 5 mg 5 mg, intravenous, Administer over 2 Minutes, Every 5 min PRN, high blood pressure, Starting on Sat04/11/21 at 174, Phase I, Max cumulative dose 20 mg. Dose if systolic BP greater than 180 AND heart rate less than 70., Indications: hypertension HYDROcodone-acetaminophen (NORCO) 5-325 mg per tablet 1 tablet 1 tablet, oral, Every 20 min PRN, 3rd line for pain, breakthrough pain, May give TWO doses at the same time for moderate to severe pain after consulting with Anesthesiologist., Starting on Sat04/11/21 at 174, For 2 doses, Phase I, Indications: Pain HYDROmorphone (DILAUDID) injection 0.2 mg 0.2 mg, intravenous, Administer over 2 Minutes, Every 5 min PRN, 2nd line for pain, breakthrough pain, Use as 2nd line pain med after consulting with anesthesiologist., Starting on Sat04/11/21 at 174, For 5 doses, Phase I, Notify Anesthesiologist if total PACU dose reaches 1 mg, and pain score of 5/10 or higher, Indications: Chronic Pain with Opioid Tolerance, Severe Pain with Opioid Tolerance labetaloL (NORMODYNE,TRANDATE) injection 5 mg 5 mg, intravenous, Every 5 min PRN, high blood pressure, Starting on Sat04/11/21 at 174, For 4 doses, Phase I, Max cumulative dose 20 mg. Dose if systolic blood pressure greater than 180 AND HR greater than 70. Lactated Ringer's (LR) irrigation (CANCELED) As needed, Starting on Sat04/11/21 at 1513, Intra-Op 1513 (Given - Provid er: Jake Frias MD) lidocaine PF (XYLOCAINE) 10 mg/mL (1 %) preservative free injection 2-10 mg (COMPLETED) 2-10 mg (0.2-1 mL), other, Once as needed, pain with IV placement, Starting on Sat04/11/21 at 1156, For 1 dose, Pre-Op, Administer volume needed to infiltrate IV site. 1248 (Given - Provid er: Denise Pedro RN) meperidine (DEMEROL) preservative free injection 12.5 mg 12.5 mg, intravenous, Administer over 5 Minutes, Every 10 min PRN, shivering, Starting on Sat04/11/21 at 1749, For 2 doses, Phase I, Max cumulative dose 25 mg., Indications: Shivering naloxone (NARCAN) 0.4 mg/mL injection 0.04-0.4 mg 0.04-0.4 mg, intravenous, Once as needed, other, excessive sedation/respiratory depression, Starting on Sat04/11/21 at 1749, For 1 dose, Phase I, Dilute 0.4 mg with 9 mL NS (final concentration 0.04 mg/mL). For respiratory depression (respiratory rate less than 6), administer 0.4 mg IVP over 30 seconds. For excessive sedation administer 0.04 mg (1 mL) every 1 minute until desired level of alertness. Consult with Anesthesiologist before administration. Administer 40 mics at a time. For IV, administer over 30 seconds., Indications: Opioid Toxicity ondansetron (ZOFRAN) injection 4 mg 4 mg, intravenous, Administer over 2 Minutes, Once as needed, nausea, vomiting, Starting on Sat04/11/21 at 1749, For 1 dose, Phase I, Proceed to prochlorperazine if ondansetron has been given within the last 6 hours. prochlorperazine (COMPAZINE) injection 5 mg 5 mg, intravenous, Every 10 min PRN, nausea, vomiting, Check with Anesthesiologist before administring, and ask about IV versus IM., Starting on Sat04/11/21 at 1749, For 2 doses, Phase I, If nausea/vomiting not relieved by ondansetron within 30 minutes or if ondansetron has been given within the last 6 hours. sodium chloride 0.9% flush 0.5-20 mL 0.5-20 mL, intra-catheter, As needed, line care, Flush [place] Hep Locks to keep vein open., Starting on Sat04/11/21 at 1156, Pre-Op, Flush volume based on line type and size. Flush before and after each use. , Indications: Flushing documented in this encounter Orders Medications Ordered That Jimmy ht Not Have Been Administered Count Last Ordered Date First Ordered Date acetaminophen (TYLENOL) tablet 500 mg 1 11/2020 ceFAZolin (ANCEF) 2,000 mg/5 0 mL in dextrose (premix) 2,000 mg 1 04/11/2021 diphenhydrAMINE (BENADRYL) i njection 12.5 mg 1 04/11/2021 hydrALAZINE (APRESOLINE) injection 5 mg 1 1 06/12/2020 HYDROcodone-acetaminophen (N ORCO) 5-325 mg per tablet 1 tablet 1 04/11/2021 HYDROmorphone (DILAUDID) injection 0.2 mg 1 04/11/2021 labetaloL (NORMODYNE,TRANDAT E) injection 5 mg 1 04/11/2021 Lactated Ringer's (LR) bolus 1,000 mL 1 11/2020 Lactated Ringer's (LR) infusion 1 Lactated Ringer's (LR) irrigation 1 meperidine (DEMEROL) preserv ative free injection 12.5 mg 1 04/11/2021 naloxone (NARCAN) 0.4 mg/mL injection 0.04-0.4 mg 1 04/11/2021 ondansetron (ZOFRAN) injection 4 mg 1 04/11 prochlorperazine (COMPAZINE) injection 5 mg 1 04/11/2021 scopolamine patch 72 hour 1 patch 1 021 sodium chloride 0.9% flush 0.5-20 mL 1 11/2020 documented in this encounter Additional Health Concerns Infection Onset Date Last Indicated Resolved Time COVID: Recovered Comment:Added based on recent COVID infection. 03/31/2021 04/03/2021 07/29/2021 3:05 AM C DT documented as of this encounter Care Teams Carpet Renovator Relationship Specialty Start Date End Date Deshawn Talbert MD [address] [place] [address] PCP - General Internal Medicine 09/07/19 12/27/22 documented as of this encounter
--- OUTSIDE RECORDS SUMMARY | 2024-04-26 21:38 | XMS_ITS | Encounter Summary ---
Author Organization [facility] Address [address] [address] Care Team Providers Care Fish Tender Name Role Phone Deshawn Talbert MD Primary Care Provider [phone] Reason for Referral * Diagnostic Imaging (Routine) - Closed Specialty Diagnoses / Procedures Referred By Contac t Referred To Contact Diagnoses History of total right knee replacement Procedures XR Knee Right 1 or 2 Views Dougie Loera MD [address] [place] [id number] Phone: tel: fax: [address] [phone] Referral ID Status Reason Start Date Expiration Date Visits Re quested Visits Authorized [id number] Closed 01/31/2021 03/02/2022 1 1 Reason for Visit * Reason Comments Pain Encounter Details Date Type Department Care Team (Late st Contact Info) Description 02/01/2021 8:00 AM CDT Office Visit [facility] Medical [facility] and [facility] Medicine [address] [place] [phone] Dougie Loera MD [address] [place] [id number] History of total right knee replacement (Primary Dx) Social History Tobacco Use Types Packs/Day Years Used Date Smoking Tobacco: Never Alcohol Use Standard Drinks/Week Comments Yes 0 (1 standard drink = 0.6 oz pur e alcohol) social Sex and Gender Information Value Date Recorded Sex Assigned at Not on file Legal Sex Male 7:48 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 Gender Identity Male 04/10/2021 6:39 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 Sexual Orientation Straight 03/15/2021 5: 03 PM SENIOR ATTORNEY 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 CHIEF COMPLAINT: Right knee replacement follow-up HISTORY OF PRESENT ILLNESS: Patient here for routine follow-up after right knee replacement. He states that he is overall doingwell but does have some intermittent swelling and occasionally a mild pain in the knee when he twisted awkwardly. Overall doing well. No fevers or chills. PHYSICAL EXAM: Patient is walking without difficulty. Examination the right knee shows normal limb alignment. There is a trace joint effusion but no redness or warmth. Range of motion of the knee is full extension to 117?? flexion. Stability is appropriate. IMAGING: X-rays made today show a total knee arthroplasty in good position with no evidence of loosening DIAGNOSIS: 1. History of total right knee replacement Plan: Activities as tolerated. I do not recommend doing anything about the small joint effusion. Follow-up on an as-needed basis. Procedures Austin Loera MD documented in this encounter Plan of Treatment Not on file documented as of this encounter Results * XR Knee Right 1 or 2 Views (02/01/2021 8:19 AM CDT) Anatomical Region Laterality Modality Lower Extremities, Knee Right Computed Radiography 02/01/2021 11:4 9 AM CDT Narrative 02/01/2021 11:50 AM CDT EXAM DESCRIPTION: ?? XR KNEE RIGHT 1 OR 2 VIEWS REASON FOR STUDY: ?? Postop knee replacement 1 year COMPARISON: ?? Right knee x-ray from 10/05/2020 FINDINGS: Two views of the right knee are reviewed. ??These images reveal a cemented, 3 compartment total knee arthroplasty. ??The implanted components remain well fixed and well aligned. ??There is no evidence of mechanical loosening or wear no fractures or dislocations are seen. ??Subtle radial lucency beneath the tibial component is unchanged. IMPRESSION: ?? Stable appearance of right total knee arthroplasty. THIS IS AN ELECTRONICALLY VERIFIED FINAL REPORT 02/01/2021 11:50 AM - Electronically signed by Dougie Loera D: ??02/01/2021 11:50 AM T: Report ID: [id number] Reading Location: ??[place] [address] Procedure Note Dougie Loera MD - 02/01/2021 EXAM DESCRIPTION: XR KNEE RIGHT 1 OR 2 VIEWS REASON FOR STUDY: Postop knee replacement 1 year COMPARISON: Right knee x-ray from 10/05/2020 FINDINGS: Two views of the right knee are reviewed. These images reveal acemented, 3 compartment total knee arthroplasty. The implanted components remain well fixed and well aligned. There is no evidence of mechanical loosening orwear no fractures or dislocations are seen. Subtle radial lucency beneath the tibial component is unchanged. IMPRESSION: Stable appearance of right total knee arthroplasty. THIS IS AN ELECTRONICALLY VERIFIED FINAL REPORT 02/01/2021 11:50 AM - Electronically signed by Dougie Loera T: Report ID: [id number] Reading Location: [place] [address] Dougie Loera MD IMG XR PROCEDURES Final Resu lt documented in this encounter Visit Diagnoses Diagnosis History of total right knee replacement- Primary History of total right knee replacement documented in this encounter Care Teams Fish Tender Relationship Specialty Start Date End Date Deshawn Talbert MD [address] [place] [address] PCP - General Internal Medicine 09/07/19 12/27/22 documented as of this encounter
--- OUTSIDE RECORDS SUMMARY | 2024-04-26 21:38 | XMS_ITS | Encounter Summary ---
Author Organization [facility] Address [address] [place] [address] Care Team Providers Care Oil Gauger Name Role Phone Deshawn Talbert MD Primary Care Provider [phone] Encounter Details Date Type Department Care Team (Late st Contact Info) Description 04/11/2021 2:25 PM OIL WELL SHOOTER Anesthesia Event [facility] [address] [place] [id number] Keith Kirkpatrick MD [address] [place] [address] Hoda Matthew NP [address] [place] [address] Anesthesia Record Procedure Summary Procedure Name Responsible Anesthesiologist Anesthesia Start Time Anesthesia Stop Time RIGHT ELBOW ARTHROSCOPY WITH OSTEOCAPSULAR ARTHROPLASTY, ULNAR NERVE DECOMPRESSION, AND LOOSE BODY REMOVAL (Right: Elbow) Keith Kirkpatrick MD 04/11/21 1425 04/11/21 1726 Events Date Time Event Comment 04/11/2021 1249 1424 AN Equip Check 1425 An Start 1430 In Room 1432 An Start Data 1436 An Induction The patient was reevaluated immediately before moderate or deep sedation use and before anesthesia induction. 1438 An Intubation 1440 Anesthesia Ready 1505 Proc Start 1505 Incision Start 1604 Quick Note Notified surgeo n of one hour tourniquet time. 1634 Quick Note Notified surgeo n of 1.5 hour tourniquet time. 1710 Proc Fin 1719 Out of Room 1720 An Extubation 1720 an stop data 1725 Handoff to RN I completed my handoff to the receiving nurse during which we: 1. Patient identified 2. Responsible provider identified 3. Pertinent medical history reviewed 4. Procedure type and surgical course discussed 5. Intraoperative anesthetic management and any significant issues discussed 6. Expectations and concerns for postop period discussed 7. Questions solicited from receiving nurse 8. Patient disposition at the time of handoff: No value filed. 1726 An Stop Meds Name Total midazolam 2 mg/2 mL 2 mg fentaNYL PF 200 mcg Lidocaine IV 1% PF 50 mg propofol 250 mg rocuronium 50 mg glycopyrrolate 0.2 mg ondansetron PF 4 mg dexamethasone 4 mg/ml 8 mg ceFAZolin (ANCEF) 2,000 mg/50 mL in dext sahara (premix) 2,000 mg 2,000 mg Lactated Ringer's (LR) infusion 1,300 mL * Agents Name O2 N2O Sevoflurane Inspired Sevoflurane * Blood No blood administrations on file. Lines, Drains, and Airways Type Details Placement Removal Peripheral IV Placement Date: 04/11/21; Placement Time: 1248; Catheter Size: 20 G; Orientation: Left; Location: Wrist; Site Prep: Chlorhexidine; Inserted by: Denise Pedro; Insertion Attempts: 1; Patient Tolerance: Tolerated well; Removal Date: 04/11/21; Removal Time: 19004/11/21 1248 by Denise Pedro RN 04/11/21 1903 by Sahara Senior RN ETT Placement Date: 04/11/21; Placement Time: 1438 (created via procedure documentation); Mask Ventilation: 1; Technique: Video laryngoscopy; Type: ETT - single; Single Lumen Tube Size: 8 mm; Cuffed: Yes; Laryngoscope: Ed; Blade Size: 4; Location: Oral; Insertion Attempts: 1; Placement Verification: Auscultation; Removal Date: 04/11/21; Removal Time: 1720 04/11/21 1438 by Malika Miranda CRNA 04/11/21 1720 by Li Roy CRNA RETIRED Surgical Site 04/11/21; 1514; Ri ght; Arm; wounds well approximated; 04/11/21; 1906; Discharge 04/11/21 1514 by Evelyn Lomas RN 04/11/21 190 by Sahara Senior RN documented in this encounter Social History Tobacco Use Types Packs/Day Years [...] on file Legal Sex Male 7:48 AM OIL WELL SHOOTER Gender Identity Male 04/10/2021 6:39 AM OIL WELL SHOOTER Sexual Orientation Straight 03/15/2021 5: 03 PM OIL WELL SHOOTER 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PER[facility]OM 5 / [facility] Anesthesia Start: 1425 Anesthesia Stop: 172 Procedure: RIGHT ELBOW ARTHROSCOPY WITH OSTEOCAPSULAR ARTHROPLASTY, ULNAR NERVE DECOMPRESSION, AND LOOSE BODY REMOVAL (Right Elbow) Diagnosis: Glenohumeral arthritis, right (Glenohumeral arthritis, right [M19.011]) Providers: Jake Frias MD Responsible Provider: Keith Kirkpatrick MD Anesthesia Type: general ASA Status: 2 Anesthesia Type: general Last vitals BP 125/74 (BP Location: Right arm) Pulse 58 Temp 36.7 ??C (98.1 ??F) Resp 11 SpO2 94% Anesthesia Post Evaluation Patient location during evaluation: PACU Patient participation: complete - patient participated Level of consciousness: fully awake Pain score: 4 Pain management: adequate Airway patency: adequate Evidence of recall: no Cardiovascular status: hemodynamically stable and acceptable Respiratory status: acceptable and room air Hydration status: acceptable Pt is: normothermic Nausea/Vomiting status: none Comments: Incomplete block, pt now comfortaable after oral pain meds; instructions given No complications documented. WELL SHOOTER * Anesthesia Procedure Notes - Jackson Fontaine MD - 04/11/2021 6:10 PM OIL WELL SHOOTER Associated Order(s): Peripheral Block Peripheral Block Start time: 04/11/2021 6:12 PM End time: 04/11/2021 6:12 PM Reason for block: post-op pain management per surgeon request Block type: single shot Laterality: right Block type: intercostobrachial nerve block Staff: Placed by: Anesthesiologist: Jackson Fontaine MD Procedure assisted by: GUANAKO Shoemakergenetic counsellor prep: See previous PNB procedure note checklist Patient position: head of bed elevated Procedure performed while patient: sedate with meaningful contact Monitoring: ECG, oximetry and blood pressure Supplemental O2: nasal cannula Prep solution: chlorhexidine/alcohol PPE: provider hat/mask Peripheral nerve block: Technique: landmark(s) Needle type: short-bevel Needle gauge: 22 G Needle length: 80 mm Injection assessment: injection made incrementally with constant monitoring Assessment: Block success: partial Events: patient tolerated procedure well with no complications WELL SHOOTER * Anesthesia Procedure Notes - Jackson Fontaine MD - 04/11/2021 5:57 PM OIL WELL SHOOTER Associated Order(s): Peripheral Block Peripheral Block Patient location during procedure: PACU Start time: 04/11/2021 5:57 PM End time: 04/11/2021 5:58 PM Reason for block: post-op pain management per surgeon request Ultrasound image in chart or stored: yes Laterality: right Block type: brachial - supraclavicular Staff: Placed by: Anesthesiologist: Jackson Fontaine MD Procedure assisted by: sahara downegative turner apprentice prep: Preprocedure checklist: patient identified, procedure contraindications assessed, site marked, procedure consent, surgical consent, IV checked, risks, benefits and alternatives discussed, monitors and equipment checked and timeout performed Patient position: head of bed elevated Procedure performed while patient: sedate with meaningful contact Monitoring: ECG, oximetry and blood pressure Supplemental O2: nasal cannula Prep solution: chlorhexidine/alcohol PPE: provider hat/mask Skin infiltrated with lidocaine 1%: yes Peripheral nerve block: Technique: ultrasound guided Needle type: short-bevel Needle gauge: 22 G Needle length: 80 mm Injection assessment: injection made incrementally with constant monitoring, local visualized surrounding nerve on ultrasound, negative aspiration for heme, no paresthesias noted and normal resistance to injection Assessment: Block success: partial Events: patient tolerated procedure well with no complications WELL SHOOTER * Anesthesia Procedure Notes - Malika Miranda CRNA - 04/11/2021 3:02 PM OIL WELL SHOOTER Associated Order(s): Airway Airway Patient location: OR Urgency: elective Date/time: 04/11/2021 2:38 PM Indications for airway management: anesthesia Difficult airway: no Emergent airway documentation: Risks and benefits discussed: yes Consent obtained: yes Consent given by: patient Airway prep: Preoxygenated: yes Patient position: sniffing MILS maintained throughout: yes Mask difficulty assessment: 1 - vent by mask Spontaneous ventilation during airway: present Sedation level during airway: GA Final airway details: Final airway type: endotracheal airway Tube type: ETT ETT size: 8.0 mm Cuffed: yes Technique used for successful ETT placement: video laryngoscopy Insertion site: oral Blade type: Ed Video blade type: Glidescope Blade size: 4 Cormack-Lehane (video): grade I - full view of glottis Cuff volume: 8 mL Cuff inflated with: air ETT to gums: 21 cm Placement verified by: auscultation Airway secured with: silk tape Number of attempts: 1 Ventilation between attempts: none WELL SHOOTER * Anesthesia Preprocedure Evaluation - Keith Kirkpatrick MD - 03/15/2021 3:23 PM CST Images from the original note were not included. [facility] for Preoperative Assessment and Planning Preoperative Evaluation Record Evaluation type/location: [facility] from [facility] Planned procedure site: [facility] Date: 03/15/21 NOTE: This note represents a preoperative evaluation initiated via telephone interview. NO PHYSICALEXAM was performed at the time of initial assessment. A physical exam may be added to this note anddocumented below. Anesthesia Evaluation Sreedhar Raymundo is a 60 y.o. male Procedure(s): RIGHT ELBOW ARTHROSCOPY WITH OSTEOCAPSULAR ARTHROPLASTY Pre-Op Diagnosis Codes: * Glenohumeral arthritis, right [M19.011] HISTORY HPI 60 yo M with history of HTN, HLD, ADRIANO compliant on pap therapy, Glenohumeral arthritis presents forRIGHT ELBOW ARTHROSCOPY WITH OSTEOCAPSULAR ARTHROPLASTY Past Medical History Information obtained from: patient and chart. Neurological Pertinent negatives: neuromuscular disease; CVA/stroke and TIA Cardiovascular + Hypertension (no change to bp medications. Reports the last 5 years BP has remained well controlled) Hypertension year diagnosed: 10+ years. + Hyperlipidemia (on statin) Pertinent negatives: CAD ; GA ; CABG ; valvular heart disease; atrial fibrillation; pacemaker/ICD; DVT/PE; negative for CHF; drug-eluting stent(s) and bare metal stent(s) Respiratory + Sleep apnea (ADRIANO) Prescribed device: PAP compliant and CPAP. Pertinent negatives: COPD; pulmonary hypertension; no O2 use outside the hospital and non-smoker Hepatic / Heme Pertinent negatives: liver disease Renal / Pertinent negatives: renal disease and dialysis Musculoskeletal/Pain + Chronic pain (right elbow pain) + Osteoarthritis Endocrine / Other + Obesity (BMI >30) (BMI 31.04) Pertinent negatives: diabetes mellitus; thyroid disease; cancer history; transplanted organ and infectious disease Functional Capacity Functional capacity: 4-6 METs Comments: Patient would be able to walk up 2 flight of stairs at moderate pace without SOB or CP. Patient would be able to walk 3-4 city blocks at moderate pace without SOB or CP. Review of Systems + chronic pain (right elbow pain) Pertinent negatives: productive cough; SOB; recent cold/flu; fever; chest pain; orthopnea; PND; previous transfusion; bleeding problems; syncope; dentures/partials and chipped/loose teeth Comments: Patient denies any S/S of UTI. PAT Summary and Plans Additional comments: Sreedhar Raymundo is a 60 y.o. male who is being evaluated prior to undergoing a low cardiac risk surgery. Revised Cardiac Risk Index factors are (none) for a total RCRI of 0 out of 6. Functional capacity is 4-6 METs. Obstructive sleep apnea (ADRIANO) screening status is HIGH RISK due to known ADRIANO. This assessment was performed via telephone. Therefore the physical exam has been deferred to the day of surgery team. The patient was provided with preoperative instructions for their medications. The patient was instructed to shower/bathe the night prior and the morning of the planned procedure using an antibacterial soap. Patient instructions were provided electronically sent via [employer]. Patient verbalized understanding of preoperative plan. Blood bank needs for day of procedure: No type and screen needed Pending labs/tests include: None Patient's COVID19 status is: Unexposed. The patient currently has no concerning symptoms of COVID19. . Patient's COVID-19 vaccination status is Fully vaccinated. Documentation of vaccination status is available in the Epic Immunization tab. . Plan for pre-procedure COVID19 testing: Telephone assessment performed. Request placed for pre-procedure COVID19 testing to be performed on 03/18 at [facility] will place the order for testing. Result to be reviewed by surgeon's office. . TPAP complete Preoperative evaluation performed by Rose Mcneal NP on 03/15/21 at 3:37 PM . Patient Active Problem List Diagnosis ??? Glenohumeral arthritis, right Past Medical History: Diagnosis Date ??? Hypercholesteremia ??? Hypertension ??? Osteoarthritis Past Surgical History: Procedure Laterality Date ??? ACHILLES TENDON REPAIR 02/1992 ??? BACK SURGERY ??? JOINT REPLACEMENT ??? KNEE SURGERY Right rtkr No Known Allergies Taking? Last Dose Start Date End Date Provider acetaminophen ER (TYLENOL) 650 mg 8 hr tablet 03/14/2021 -- -- Mina Frias MD hydroCHLOROthiazide (HYDRODIURIL) 25 mg tablet 03/14/2021 08/11/19 -- Mina Frias MD lisinopriL (PRINIVIL,ZESTRIL) 20 mg tablet 03/14/2021 07/09/19 -- Mina Frias MD meloxicam (MOBIC) 15 mg tablet 03/13/2021 07/09/19 -- Mina Frias MD multivitamin capsule 03/14/2021 -- -- Mina Frias MD rosuvastatin (CRESTOR) 20 mg tablet 03/14/2021 07/19/19 -- Mina Frias MD No current facility-administered medications for this encounter. Current Outpatient Medications: ??? acetaminophen ER (TYLENOL) 650 mg 8 hr tablet ??? hydroCHLOROthiazide (HYDRODIURIL) 25 mg tablet ??? lisinopriL (PRINIVIL,ZESTRIL) 20 mg tablet ??? meloxicam (MOBIC) 15 mg tablet ??? multivitamin capsule ??? rosuvastatin (CRESTOR) 20 mg tablet Social History Tobacco Use Smoking Status Never Smoker Smokeless Tobacco Never Used Substance and Sexual Activity Alcohol Use Yes Comment: social Substance and Sexual Activity Drug Use Never Family History Problem Relation Age of Onset ??? Heart disease Father ??? Arthritis Father ??? Cancer Father There were no vitals filed for this visit. Relevant diagnostics: ECG(s): 01/14/20: Normal sinus rhythm , rate 61 Normal ECG No previous ECGs available Echocardiogram(s): N/A Stress test(s): N/A Cardiac catheterization(s): N/A PFT(s): N/A Vascular studies: N/A Other: N/A PT: No results found for requested labs within last 720 hours. INR: No results found for requested labs within last 720 hours. APTT: No results found for requested labs within last 720 hours. Hgb A1C: No results found for requested labs within last 720 hours. CBC RBC: No results found for requested labs within last 720 hours. RDW: No results found for requested labs within last 720 hours. MCHC: No results found for requested labs within last 720 hours. MCH: No results found for requested labs within last 720 hours. MCV: No results found for requested labs within last 720 hours. Hct: No results found for requested labs within last 720 hours. Hgb: No results found for requested labs within last 720 hours. WBC: No results found for requested labs within last 720 hours. MPV: No results found for requested labs within last 720 hours. Platelets: No results found for requested labs within last 720 hours. RDW CV: No results found for requested labs within last 720 hours. RDW Sd: No results found for requested labs within last 720 hours. BMP Glucose: No results found for requested labs within last 720 hours. Calcium: No results found for requested labs within last 720 hours. Sodium: No results found for requested labs within last 720 hours. Potassium: No results found for requested labs within last 720 hours. CO2: No results found for requested labs within last 720 hours. Chloride: No results found for requested labs within last 720 hours. BUN: No results found for requested labs within last 720 hours. Creatinine: No results found for requested labs within last 720 hours. Susi index score: 100 DOS Physical Exam Medical history, medications, and allergies reviewed. Attestation: This PAT evaluation 04/11/2021. Airway Exam: Mallampati: II Cervical ROM: FROM TM distance: 2 Cardiovascular Exam: Rate: regular Rhythm: regular Pulmonary Exam: LCTA, bilat Anesthesia Plan ASA 2 My patient is approved for the Anesthesia Controlled Medication protocol when under care of a ELECTRIC TRIPPER MACHINE OPERATOR Planned anesthesia: General Team communication plan: oral ET tube Informed Consent: Anesthesia plan and risks discussed with patient and spouse. Plan and Consent Comments: Discussed risks and benefits of regional block in PACU, if needed for post-op pain management. Patient voiced understanding. Consent and Attending signature: I and/or my designee have discussed the anesthesia plan, benefits, possible alternatives, parental presence at time of induction (if indicated), and clinically relevant risks that may include dental injury, unintentional awareness, and/or other complications. The patient and/or parent/legal guardian understand, and agree to proceed. All questions answered. WELL SHOOTER WELL SHOOTER documented in this encounter Plan of Treatment Not on file documented as of this encounter Procedures Procedure Name Priority Date/Time Associated Diagnosis Comments SD AN PROCEDURE PLACEHOLDER Routine 04/11/2021 6:12 PM OIL WELL SHOOTER SD AN PROCEDURE PLACEHOLDER Routine 04/11/2021 5:57 PM OIL WELL SHOOTER SD AN PROCEDURE PLACEHOLDER Routine 04/11/2021 2:38 PM OIL WELL SHOOTER SD AN ELECTIVE ENDOTRACHEAL AIRWAY Routine 04/11/2021 2:38 PM OIL WELL SHOOTER documented in this encounter Results * SD AN PROCEDURE PLACEHOLDER (04/11/2021 6:12 PM OIL WELL SHOOTER) Narrative Jackson Fontaine MD - 04/11/2021 6:12 PM OIL WELL SHOOTER Jackson Fontaine MD ? 04/11/2021 ??6:12 PM Peripheral Block Start time: 04/11/2021 6:12 PM End time: 04/11/2021 6:12 PM Reason for block: post-op pain management per surgeon request Block type: single shot Laterality: right Block type: intercostobrachial nerve block Staff: Placed by: Anesthesiologist: Jackson Fontaine MD Procedure assisted by: GUANAKO Shoemakergenetic counsellor prep: See previous PNB procedure note checklist Patient position: head of bed elevated Procedure performed while patient: sedate with meaningful contact Monitoring: ECG, oximetry and blood pressure Supplemental O2: nasal cannula Prep solution: chlorhexidine/alcohol PPE: provider hat/mask Peripheral nerve block: Technique: landmark(s) Needle type: short-bevel Needle gauge: 22 G Needle length: 80 mm Injection assessment: injection made incrementally with constant monitoring Assessment: Block success: partial Events: patient tolerated procedure well with no complications us Keith Kirkpatrick MD ANESTHESIA ORDERABLES Final Re sult * SD AN PROCEDURE PLACEHOLDER (04/11/2021 5:57 PM OIL WELL SHOOTER) Jackson Ceballos MD - 04/11/2021 5:57 PM OIL WELL SHOOTER Jackson Fontaine MD ? 04/11/2021 ??6:10 PM Peripheral Block Patient location during procedure: PACU Start time: 04/11/2021 5:57 PM End time: 04/11/2021 5:58 PM Reason for block: post-op pain management per surgeon request Ultrasound image in chart or stored: yes Laterality: right Block type: brachial - supraclavicular Staff: Placed by: Anesthesiologist: Jackson Fontaine MD Procedure assisted by: sahara downegative turner apprentice prep: Preprocedure checklist: patient identified, procedure contraindications assessed, site marked, procedure consent, surgical consent, IV checked, risks, benefits and alternatives discussed, monitors and equipment checked and timeout performed Patient position: head of bed elevated Procedure performed while patient: sedate with meaningful contact Monitoring: ECG, oximetry and blood pressure Supplemental O2: nasal cannula Prep solution: chlorhexidine/alcohol PPE: provider hat/mask Skin infiltrated with lidocaine 1%: yes Peripheral nerve block: Technique: ultrasound guided Needle type: short-bevel Needle gauge: 22 G Needle length: 80 mm Injection assessment: injection made incrementally with constant monitoring, local visualized surrounding nerve on ultrasound, negative aspiration for heme, no paresthesias noted and normal resistance to injection Assessment: Block success: partial Events: patient tolerated procedure well with no complications us Keith Kirkpatrick MD ANESTHESIA ORDERABLES Final Re sult * SD AN ELECTIVE ENDOTRACHEAL AIRWAY, SD AN PROCEDURE PLACEHOLDER (04/11/2021 2:38 PM OIL WELL SHOOTER) Narrative Malika Miranda CRNA - 04/11/2021 2:38 PM OIL WELL SHOOTER Malika Miranda CRNA ? 04/11/2021 ??3:03 PM Airway Patient location: OR Urgency: elective Date/time: 04/11/2021 2:38 PM Indications for airway management: anesthesia Difficult airway: no Emergent airway documentation: Risks and benefits discussed: yes Consent obtained: yes Consent given by: patient Airway prep: Preoxygenated: yes Patient position: sniffing MILS maintained throughout: yes Mask difficulty assessment: 1 - vent by mask Spontaneous ventilation during airway: present Sedation level during airway: GA Final airway details: Final airway type: endotracheal airway Tube type: ETT ETT size: 8.0 mm Cuffed: yes Technique used for successful ETT placement: video laryngoscopy Insertion site: oral Blade type: Ed Video blade type: Glidescope Blade size: 4 Cormack-Lehane (video): grade I - full view of glottis Cuff volume: 8 mL Cuff inflated with: air ETT to gums: 21 cm Placement verified by: auscultation Airway secured with: silk tape Number of attempts: 1 Ventilation between attempts: none us Keith Kirkpatrick MD ANESTHESIA ORDERABLES Final Re sult documented in this encounter Visit Diagnoses Not on filedocumented in this encounter Administered Medications Inactive Administered Medications - up to 3 most recent administrations Medication Order MAR Action Action Date Dose Rate Site ceFAZolin (ANCEF) 2,000 mg/50 mL in dextrose (premix) 2,000 mg 2,000 mg, intravenous, at 100 mL/hr, Administer over 30 Minutes, Once, On 04/11/21 at 1230, For 1 dose, Pre-Op, Administer within 60 minutes of incision. Duplex bag - activate before hanging. , Indications: Prophylaxis, SurgicalIndications:Prophylaxis, Surgical Given 04/11/2021 2:33 PM OIL WELL SHOOTER 2,000 mg dexAMETHasone (DECADRON) 4 mg/mL injection intravenous, Administer over 2 Minutes, As needed, Starting on 04/11/21 at 1436, Anesthesia Intra-op Given 04/11/2021 2:36 PM OIL WELL SHOOTER 8 mg fentaNYL (SUBLIMAZE) preservative free injection intravenous, As needed, Starting on 04/11/21 at 1436, Anesthesia Intra-op Given 04/11/2021 3:06 PM OIL WELL SHOOTER 100 mcg Given 04/11/2021 2:36 PM OIL WELL SHOOTER 100 mcg glycopyrrolate (ROBINUL) injection intravenous, Administer over 1 Minutes, As needed, Starting on 04/11/21 at 1514, Anesthesia Intra-op Given 04/11/2021 3:14 PM OIL WELL SHOOTER 0.2 mg Lactated Ringer's (LR) infusion 30 mL/hr, intravenous, Continuous, Starting on 04/11/21 at 1230, Pre-Op, Use a 500 ml bag for End Stage Renal Disease Patients New Bag 04/11/2021 3:29 PM OIL WELL SHOOTER Rate/Dose Verify 04/11/2021 2:25 PM OIL WELL SHOOTER 30 mL/h r New Bag 04/11/2021 12:48 PM OIL WELL SHOOTER 30 mL/hr 30 mL/hr lidocaine PF (XYLOCAINE) 10 mg/mL (1 %) preservative free injection intravenous, As needed, Starting on 04/11/21 at 1436, Anesthesia Intra-op Given 04/11/2021 2:36 PM OIL WELL SHOOTER 50 mg midazolam (VERSED) 1 mg/mL injection intravenous, As needed, Starting on 04/11/21 at 1425, Anesthesia Intra-op Given 04/11/2021 2:25 PM OIL WELL SHOOTER 2 mg ondansetron (ZOFRAN) injection intravenous, Administer over 2 Minutes, As needed, Starting on Sat04/11/21 at 1647, Anesthesia Intra-op Given 04/11/2021 4:47 PM OIL WELL SHOOTER 4 mg propofoL (DIPRIVAN) 10 mg/mL IV intravenous, As needed, Starting on Sat04/11/21 at 1436, Anesthesia Intra-op Given 04/11/2021 5:07 PM OIL WELL SHOOTER 50 mg Given 04/11/2021 2:36 PM OIL WELL SHOOTER 200 mg rocuronium (ZEMURON) injection intravenous, As needed, Starting on Sat04/11/21 at 1436, Anesthesia Intra-op Given 04/11/2021 3:06 PM OIL WELL SHOOTER 10 mg Given 04/11/2021 2:36 PM OIL WELL SHOOTER 40 mg documented in this encounter Additional Health Concerns Infection Onset Date Last Indicated Resolved Time COVID: Recovered Comment:Added based on recent COVID infection. 03/31/2021 04/03/2021 07/29/2021 3:05 AM C DT documented as of this encounter Care Teams Oil Gauger Relationship Specialty Start Date End Date Deshawn Talbert MD [address] [place] [address] PCP - General Internal Medicine 09/07/19 12/27/22 documented as of this encounter
--- OUTSIDE RECORDS SUMMARY | 2024-04-26 21:38 | XMS_ITS | Encounter Summary ---
Author Organization [facility] Address [address] [place] [address] Care Team Providers Care Vibrating Screed Operator Name Role Phone Deshawn Talbert MD Primary Care Provider [phone] [phone] Reason for Referral * Diagnostic Imaging (Routine) - Closed Specialty Diagnoses / Procedures Referred By Contac t Referred To Contact Diagnoses History of total right knee replacement Procedures XR Knee Right 1 or 2 Views Dougie Loera MD [address] [place] [address] DR FRANKLIN [address] [place] [address] Phone: tel: fax: [address] [phone] Referral ID Status Reason Start Date Expiration Date Visits Re quested Visits Authorized [id number] Closed 01/31/2021 03/02/2022 1 1 Reason for Visit * Diagnostic Imaging (Routine) - Closed Specialty Diagnoses / Procedures Referred By Contac t Referred To Contact Diagnoses History of total right knee replacement Procedures XR Knee Right 1 or 2 Views Dougie Loera MD [address] [place] [address] DR FRANKLIN [address] [place] [address] Phone: tel: fax: [address] [phone] Referral ID Status Reason Start Date Expiration Date Visits Re quested Visits Authorized [id number] Closed 01/31/2021 03/02/2022 1 1 Encounter Details Date Type Department Care Team (Latest Contact Info) Description 02/01/2021 8:15 AM CDT - 02/01/2021 8:40 AM CDT Hospital Encounter [facility] [address] [place] [address] History of total right knee replacement Discharge Disposition: Discharge to home or self care Social History Tobacco Use Types Packs/Day Years Used Date Smoking Tobacco: Never Alcohol Use Standard Drinks/Week Comments Yes 0 (1 standard drink = 0.6 oz pur e alcohol) social Sex and Gender Information Value Date Recorded Sex Assigned at Not on file Legal Sex Male 7:48 AM BRAKE OPERATOR SHEET METAL Gender Identity Male 04/10/2021 6:39 AM BRAKE OPERATOR SHEET METAL Sexual Orientation Straight 03/15/2021 5: 03 PM BRAKE OPERATOR SHEET METAL 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 Not on file Not on file [...] Schedule Routine, Read Routine (OP Routine) 02/01/2021 8:19 AM CDT History of total right knee replacement documented [...] D: ??02/01/2021 11:50 AM T: Report ID: [id number] Reading Location: ??[place] [address] Procedure Note Dougie Loera MD - 02/01/2021 [...] signed by Dougie Loera T: Report ID: [id number] Reading Location: [place] [address] Dougie Loera MD IMG XR PROCEDURES Final Resu lt documented in this encounter Visit Diagnoses Diagnosis History of total right knee replacement documented in this encounter Care Teams Vibrating Screed Operator Relationship Specialty Start Date End Date Deshawn Talbert MD [address] [place] [address] PCP - General Internal Medicine 09/07/19 12/27/22 documented as of this encounter
--- OUTSIDE RECORDS SUMMARY | 2024-04-26 21:38 | XMS_ITS | Encounter Summary ---
Author Organization [facility] Healthcare Address [address] [place] [address] Care Team Providers Care Sheet Metal Shop Foreman Name Role Phone Deshawn Talbert MD Primary Care Provider [phone] Encounter Details Date Type Department Care Team (Late st Contact Info) Description 10/05/2020 12:01 AM CDT Hospital Encounter [facility] INTERIM Dougie Loera MD [facility] [address] [address] Social History Tobacco Use Types Packs/Day Years Used Date Smoking Tobacco: Never Alcohol Use Standard Drinks/Week Comments Yes 0 (1 standard drink = 0.6 oz pur e alcohol) social Sex and Gender Information Value Date Recorded Sex Assigned at Not on file Legal Sex Male 7:48 AM MEDICAL MASSAGE THERAPIST Gender Identity Male 04/10/2021 6:39 AM MEDICAL MASSAGE THERAPIST Sexual Orientation Straight 03/15/2021 5: 03 PM MEDICAL MASSAGE THERAPIST 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 on file Not on [...] Procedure Name Priority Date/Time Associated Diagnosis Comments CRYSTAL ANALYSIS, BODY FLUID Routine 10/05/2020 10:00 AM CDT CELL COUNT W/REFLEX DIFFERENTIAL, BODY FLUID Routine 10/05/2020 10:00 AM CDT BODY FLUID CULTURE Routine 10/05/2020 10 :00 AM CDT GRAM STAIN Routine 10/05/2020 10:00 AM CDT ANAEROBIC CULTURE Routine 10/05/2020 10: 00 AM CDT documented in this encounter Results * Anaerobic culture Synovial fluid Knee, right (10/05/2020 10:00 AM CDT) CULTURE ANAEROBIC NO ANAEROBIC GROWTH DAY 5 [facility] Synovial fluid (Knee, right) 10/05/2020 10:00 AM CDT 10/05/2020 1:30 PM CDT Dougie Loera MD LAB MICROBIOLOGY - GENERAL O RDERABLES Final Result [facility] [address], [facility] [phone] * Body Fluid Culture (10/05/2020 10:00 AM CDT) CULTURE BODY FLUID NO GROWTH AFTER 3 DAYS [facility] Synovial fluid (Knee, right) 10/05/2020 10:00 AM CDT 10/05/2020 1:30 PM CDT Dougie Loera MD LAB BLOOD ORDERABLES Final R esult Performing Organization Address City/[facility]/ZIP Co de Phone Number RELL [address] [phone] * Gram stain Synovial fluid Knee, right (10/05/2020 10:00 AM CDT) GRAM STAIN NO ORGANISMS SEEN MANY WBC MANY RBC [facility] Synovial fluid (Knee, right) 10/05/2020 10:00 AM CDT 10/05/2020 1:30 PM CDT Dougie Loera MD LAB MICROBIOLOGY - GENERAL O RDERABLES Final Result Performing Organization Address [facility] Co de Phone Number CHARLIE[address] [phone] * Crystal Analysis, Body Fluid (10/05/2020 10:00 AM CDT) Fluid Crystals NONE SEEN [facility] 10/05/2020 10:0 0 AM CDT 10/05/2020 1:30 PM CDT Narrative [facility] - 10/05/2020 2:31 PM CDT Description of Specimen: 10 CC ORANGE CLOUDY SYNOVIAL Resulting Agency Comment REF Dougie Loera MD LAB BODY FLUIDS AND STOOLS O RDERABLES Final Result Performing Organization Address City/[facility]/ZIP Co de Phone Number MAGDAL[place] [address] [phone] * Cell count with reflex to differential, body fluid (10/05/2020 10:00 AM CDT) Fluid Source SYNOVIAL FLUID [facility] Fluid Type SYNOVIAL [facility] Fluid Color ORANGE [facility] Fluid Appearance CLOUDY [facility] Fluid Volume 10.00 mls [facility] Fluid RBC 6,000 /ul [facility] Fluid WBC 408 /ul [facility] Fluid Neutrophils % 15 % [facility] Fluid Lymphocytes % 84 % [facility] Fluid Eosinophils % 1 % [facility] 10/05/2020 10:0 0 AM CDT 10/05/2020 1:30 PM CDT Narrative [facility] - 10/05/2020 2:31 PM CDT Description of Specimen: 10 CC ORANGE CLOUDY SYNOVIAL Resulting Agency Comment REF us Dougie Loera MD LAB BODY FLUIDS AND STOOLS O RDERABLES Final Result [place] [address] [place] [address], [facility] [phone] documented in this encounter Visit Diagnoses Not on filedocumented in this encounter Care Teams Sheet Metal Shop Foreman Relationship Specialty Start Date End Date Deshawn Talbert MD [address] [place] [address] PCP - General Internal Medicine 09/07/19 12/27/22 documented as of this encounter
--- OUTSIDE RECORDS SUMMARY | 2024-04-26 21:39 | XMS_ITS | Encounter Summary ---
Author Organization [facility] Healthcare Address [address] [place] [address] Care Team Providers Care Assistant Professor Of Criminal Justice Name Role Phone Deshawn Talbert MD Primary Care Provider [phone] [phone] Reason for Referral * Diagnostic Imaging (Routine) - Closed Specialty Diagnoses / Procedures Referred By Contac t Referred To Contact Diagnoses Primary osteoarthritis of right knee Procedures XR Knee Right 3 Views Dougie Loera MD [address] [place] [address] [address] FRANKLIN [address] [place] [address] Phone: tel: fax: [address] [phone] Referral ID Status Reason Start Date Expiration Date Visits Re quested Visits Authorized [id number] Closed 09/22/2019 04/02/2021 1 1 Encounter Details Date Type Department Care Team (Latest Contact Info) Description 09/22/2019 10:25 AM CDT Hospital Encounter [facility] OP INTERIM Dougie Loera MD [facility] [address] FRANKLIN [address] [place] [address] Primary osteoarthritis of right knee Social History Tobacco Use Types Packs/Day Years Used Date Smoking Tobacco: Never Alcohol Use Standard Drinks/Week Comments Yes 0 (1 standard drink = 0.6 oz pur e alcohol) social Sex and Gender Information Value Date Recorded Sex Assigned at Not on file Legal Sex Male 7:48 AM HUMAN RESOURCE INTERN Gender Identity Male 04/10/2021 6:39 AM HUMAN RESOURCE INTERN Sexual Orientation Straight 03/15/2021 5: 03 PM HUMAN RESOURCE INTERN 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 Not on [...] mg by mouth every morning 07/09/2019 04/11/2021 documented as of this encounter Plan of Treatment Not on file documented as of this encounter Procedures Procedure Name Priority Date/Time Associated Diagnosis Comments XR KNEE RIGHT 3 VIEWS Schedule Routine, Read Routine (OP Routine) 09/22/2019 10:26 AM CDT Primary osteoarthritis of right knee documented in this encounter Results * XR Knee Right 3 Views (09/22/2019 10:26 AM CDT) Anatomical Region Laterality Modality Lower Extremities, Knee Right [facility] 09/22/2019 3:00 PM CDT Narrative 09/22/2019 3:01 PM CDT Patient Name: COOKIE MAHMOOD ?Ordering Dr: Dougie Loera MD ?? D.O.B: 1960 ? Exam Date: 05/19/20 ?? 1026 ?? Age: 58 ?Sex: Male ? MR#: [id number] ?? Loc: ? RADIOLOGY REPORT ?? Order #[id number] ?? Radiology ? Knee RT 3 View (STANDARD) ? Signed ?? EXAM DESCRIPTION: ?? Knee RT 3 View (STANDARD) ? REASON FOR STUDY: ?? Right knee pain ? COMPARISON: ?? None. ? FINDINGS: ?Three views of the right knee are reviewed. ??These images reveal mild medial ?? compartment joint space narrowing and marked patellofemoral joint space ?? narrowing. ??There are medial, lateral and patellofemoral osteophytes. ? Numerous calcified loose bodies are seen well posterior to the knee joint in ?? the intercondylar notch. ??There is no abnormal bone destruction or production ?? noted and no fractures or dislocations are seen. ? IMPRESSION: ?? Diffuse degenerative changes of the right knee worse in the ?? patellofemoral and medial compartments. ? THIS IS AN ELECTRONICALLY VERIFIED FINAL REPORT ?? 09/22/2019 3:01 PM - Electronically signed by Dougie Loera ?? Dougie Loera ? SH ?? D: ??09/22/2019 3:01 PM ?? T: ? Report ID: [id number] ?? Reading Location: ??[id number] ? REPORT ELECTRONICALLY SIGNED IN OTHER VENDOR SYSTEM ?? Resulting Agency Comment O Procedure Note Dougie Loera MD - 09/22/2019 Patient Name: COOKIE MAHMOOD Dr: Dougie Loera MD D.O.B: 1960 Exam Date: 09/22/19 1026 Age: 58 Sex: Male MR#: [id number] Loc: RADIOLOGY REPORT Order #[id number] Radiology Knee RT 3 View (STANDARD) Signed EXAM DESCRIPTION: Knee RT 3 View (STANDARD) REASON FOR STUDY: Right knee pain COMPARISON: None. FINDINGS: Three views of the right knee are reviewed. These images reveal mildmedial compartment joint space narrowing and marked patellofemoral joint space narrowing. There are medial, lateral and patellofemoral osteophytes. Numerous calcified loose bodies are seen well posterior to the knee jointin the intercondylar notch. There is no abnormal bone destruction orproduction noted and no fractures or dislocations are seen. IMPRESSION: Diffuse degenerative changes of the right knee worse in the patellofemoral and medial compartments. THIS IS AN ELECTRONICALLY VERIFIED FINAL REPORT 09/22/2019 3:01 PM - Electronically signed by Dougie Loera T: Report ID: [id number] Reading Location: [place] [address] REPORT ELECTRONICALLY SIGNED IN OTHER VENDOR SYSTEM us Dougie Loera MD IMG XR PROCEDURES Final Resu lt documented in this encounter Visit Diagnoses Diagnosis Primary osteoarthritis of right knee documented in this encounter Care Teams Assistant Professor Of Criminal Justice Relationship Specialty Start Date End Date Deshawn Talbert MD [address] [place] [address] PCP - General Internal Medicine 09/07/19 12/27/22 documented as of this encounter
--- OUTSIDE RECORDS SUMMARY | 2024-04-26 21:39 | XMS_ITS | Encounter Summary ---
Author Organization [facility] Healthcare Address [address] [place] [address] Care Team Providers Care General Milling Superintendent Name Role Phone Deshawn Talbert MD Primary Care Provider [phone] [phone] Reason for Referral * Diagnostic Imaging (Routine) - Closed Specialty Diagnoses / Procedures Referred By Contac t Referred To Contact Diagnoses Status post total right knee replacement Procedures XR Knee Right 1 or 2 Views Dougie Loera MD [address] [place] [address] DR FRANKLIN [address] [place] [address] Phone: tel: fax: [address] [phone] Referral ID Status Reason Start Date Expiration Date Visits Re quested Visits Authorized [id number] Closed 02/25/2020 03/26/2021 1 1 Encounter Details Date Type Department Care Team (Late st Contact Info) Description 02/26/2020 9:09 AM CDT Hospital Encounter [facility] OP INTERIM Dougie Loera MD [address] [place] [address] DR FRANKLIN [address] [place] [address] Status post total right knee replacement Social History Tobacco Use Types Packs/Day Years Used Date Smoking Tobacco: Never Alcohol Use Standard Drinks/Week Comments Yes 0 (1 standard drink = 0.6 oz pur e alcohol) social Sex and Gender Information Value Date Recorded Sex Assigned at Not on file Legal Sex Male 7:48 AM MERCHANDISE COLLECTOR Gender Identity Male 04/10/2021 6:39 AM MERCHANDISE COLLECTOR Sexual Orientation Straight 03/15/2021 5: 03 PM MERCHANDISE COLLECTOR 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 D.O.B: 1960 ? Exam Date: 10//20 ?? 0910 ?? Age: 59 ?Sex: Male ? MR#: [id number] ?? Loc: ? RADIOLOGY REPORT ?? Order #[id number] ?? Radiology ? Knee RT 1 or 2 View (Special) ? Signed ?? EXAM DESCRIPTION: ?? Knee RT 1 or 2 View (Special) ? REASON FOR STUDY: ?? Postop knee replacement ? COMPARISON: ?? Immediate postoperative x-rays from 01/28/2020 ? FINDINGS: ?Two views of the right knee are reviewed. ??These images reveal a cemented, 3 ?? compartment total knee arthroplasty recently performed at the right knee. ??The ?? implanted components are anatomically aligned and position and there is no ?? evidence of mechanical loosening or wear. ??No fractures or dislocations are ?? seen. ??Mild soft tissue swelling is present. ??Skin abdias are noted to be ?? removed and soft tissue air has absorbed. ? IMPRESSION: ?? Uncomplicated appearance of recent right total knee replacement. ? THIS IS AN ELECTRONICALLY VERIFIED FINAL REPORT ?? 02/26/2020 11:44 AM - Electronically signed by Dougie Loera ?? Dougie Loera ? SH ?? D: ??02/26/2020 11:44 AM ?? T: ? Report ID: [id number] ?? Reading Location: ??[id number] ? REPORT ELECTRONICALLY SIGNED IN OTHER VENDOR SYSTEM ?? Resulting Agency Comment O Procedure Note Dougie Loera MD - 02/26/2020 Patient Name: COOKIE MAHMOOD Dr: Dougie Loera MD D.O.B: 1960 Exam Date: 02/26/20909 Age: 59 Sex: Male MR#: [id number] Loc: RADIOLOGY REPORT Order #[id number] Radiology Knee RT 1 or 2 View (Special) Signed EXAM DESCRIPTION: Knee RT 1 or 2 View (Special) REASON FOR STUDY: Postop knee replacement COMPARISON: Immediate postoperative x-rays from 01/28/2020 FINDINGS: Two views of the right knee are reviewed. These images reveal acemented, 3 compartment total knee arthroplasty recently performed at the right knee.The implanted components are anatomically aligned and position and there isno evidence of mechanical loosening or wear. No fractures or dislocationsare seen. Mild soft tissue swelling is present. Skin abdias are noted jay jay removed and soft tissue air has absorbed. IMPRESSION: Uncomplicated appearance of recent right total kneereplacement. THIS IS AN ELECTRONICALLY VERIFIED FINAL REPORT 02/26/2020 11:44 AM - Electronically signed by Dougie Loera T: Report ID: [id number] Reading Location: [place] [address] REPORT ELECTRONICALLY SIGNED IN OTHER VENDOR SYSTEM us Dougie Loera MD IMG XR PROCEDURES Final Resu lt documented in this encounter Visit Diagnoses Diagnosis Status post total right knee replacement documented in this encounter Care Teams General Milling Superintendent Relationship Specialty Start Date End Date Deshawn Talbert MD [address] [place] [address] PCP - General Internal Medicine 09/07/19 12/27/22 documented as of this encounter
--- OUTSIDE RECORDS SUMMARY | 2024-04-26 21:39 | XMS_ITS | Encounter Summary ---
Author Organization [facility] Address [address] [place] [address] Care Team Providers Care Assistant Paralegal Name Role Phone Deshawn Talbert MD Primary Care Provider [phone] Encounter Details Date Type Department Care Team (Late st Contact Info) Description 01/21/2020 Orders Only [facility] Testing Site - [address] [place] [address] Dougie Loera MD [facility] [address] Pre-procedure lab exam (Primary Dx) Social History Tobacco Use Types Packs/Day Years Used Date Smoking Tobacco: Never Alcohol Use Standard Drinks/Week Comments Yes 0 (1 standard drink = 0.6 oz pur e alcohol) social Sex and Gender Information Value Date Recorded Sex Assigned at Not on file Legal Sex Male 7:48 AM PERISHABLE FRUIT INSPECTOR Gender Identity Male 04/10/2021 6:39 AM PERISHABLE FRUIT INSPECTOR Sexual Orientation Straight 03/15/2021 5: 03 PM PERISHABLE FRUIT INSPECTOR 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 Not on file Not on file documented as of this encounter Progress Notes * Pauly Roberson - 01/21/2020 1:26 PM CDT Pt chooses for testing to be done 01/25 at [facility] site documented in this encounter Miscellaneous Notes * Addendum Note - Janice Martinez - 01/21/2020 1:26 PM CDTAddended by: JANICE MARTINEZ on: 01/26/2020 12:48 PM Modules accepted: Orders documented in this encounter Plan of Treatment Not on file documented as of this encounter Results * COVID-19 Coronavirus RNA Nasopharyngeal (01/26/2020 8:14 AM CDT) COVID-19 RNA Not Detected [facility] Comment: Interpretive Data Testing performed at [facility] Molecular Infectious Disease Laboratory. The 2018-Novel Coronavirus Assay (COVID-19) Real Time RT-PCR assay is for in vitro diagnostic use under FDA emergency use authorization only. A negative RT-PCR result does not preclude infection with COVID-19 and should not be used as the sole basis for treatment or other patient management decisions. Additional sample types have been validated according to CLIA regulations. ?? Current Interpretive Data was last revised on 2019. Nasopharyngeal 01/26/2020 8: 14 AM CDT 01/26/2020 1:24 PM CDT Narrative [facility] - 01/26/2020 10:54 PM CDT Is the patient experiencing any symptoms consistent with COVID (eg. Fever, cough, shortness of breath)?->No What is the reason for testing?->Screening prior to scheduled (>12 hr) surgery or procedure us Dougie Loera MD LAB MICROBIOLOGY - GENERAL O RDERABLES Final Result [facility] Department [place] [address] documented in this encounter Visit Diagnoses Diagnosis Pre-procedure lab exam- Primary Pre-procedural laboratory examination Pre-procedure lab exam Pre-procedural laboratory examination documented in this encounter Care Teams Assistant Paralegal Relationship Specialty Start Date End Date Deshawn Talbert MD [address] [place] [address] PCP - General Internal Medicine 09/07/19 12/27/22 documented as of this encounter
--- OUTSIDE RECORDS SUMMARY | 2024-04-26 21:39 | XMS_ITS | Encounter Summary ---
Author Organization [facility] Address [address] [facility] [facility] [address] [place] [address] Care Team Providers Care Bottom Man Name Role Phone Deshawn Talbert MD Primary Care Provider [phone] Encounter Details Date Type Department Care Team (Late st Contact Info) Description 01/21/2020 Orders Only [facility] Orthopedics and Sports Medicine [address] [place] [address] [address] [place] [address] [place] [address] [place] [address] [address] [place] [address] Preop testing (Primary Dx) Social History Tobacco Use Types Packs/Day Years Used Date Smoking Tobacco: Never Alcohol Use Standard Drinks/Week Comments Yes 0 (1 standard drink = 0.6 oz pur e alcohol) social Sex and Gender Information Value Date Recorded Sex Assigned at Not on file Legal Sex Male 7:48 AM AUDIO/VISUAL MANAGER Gender Identity Male 04/10/2021 6:39 AM AUDIO/VISUAL MANAGER Sexual Orientation Straight 03/15/2021 5: 03 PM AUDIO/VISUAL MANAGER 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
--- OUTSIDE RECORDS SUMMARY | 2024-04-26 21:39 | XMS_ITS | Encounter Summary ---
Author Organization [facility] Address [address] [facility] [address] [place] [address] Care Team Providers Care Senior Telecommunications Engineer Name Role Phone Deshawn Talbert MD Primary Care Provider [phone] [phone] Encounter Details Date Type Department Care Team (Late st Contact Info) Description 09/18/[address] [facility] Orthopedics and Sports Medicine [facility] [address] [place] [address] Dougie Loera MD [address] [facility] [address] [place] [address] Right knee pain, unspecified chronicity (Primary Dx) Social History Tobacco Use Types Packs/Day Years Used Date Smoking Tobacco: Never Assessed Sex and Gender Information Value Date Recorded Sex Assigned at Not on file Legal Sex Male 7:48 AM SCREENER PERFUMER Gender Identity Male 04/10/2021 6:39 AM SCREENER PERFUMER Sexual Orientation Straight 03/15/2021 5: 03 PM SCREENER PERFUMER documented as of this encounter Plan of Treatment Not on file documented as of this encounter Visit Diagnoses Diagnosis Right knee pain, unspecified chronicity- Primary documented in this encounter Care Teams Senior Telecommunications Engineer Relationship Specialty Start Date End Date Deshawn Talbert MD [address] [place] [address] PCP - General Internal Medicine 09/07/19 12/27/22 documented as of this encounter
--- OUTSIDE RECORDS SUMMARY | 2024-04-26 21:39 | XMS_ITS | Encounter Summary ---
Author Organization [facility] Address [address] [address] Care Team Providers Care Equipment Planner Name Role Phone Deshawn Talbert MD Primary Care Provider [phone] [phone] Reason for Referral * Diagnostic Imaging (Routine) - Closed Specialty Diagnoses / Procedures Referred By Contac t Referred To Contact Diagnoses Status post total right knee replacement Procedures XR Knee Right 1 or 2 Views Dougie Loera MD [address] [place] [address] DR [place] [address] [place] [address] Phone: tel: fax: [address] [address] Referral ID Status Reason Start Date Expiration Date Visits Re quested Visits Authorized [id number] Closed 02/25/2020 03/26/2021 1 1 Reason for Visit * Reason Comments Post-op Encounter Details Date Type Department Care Team (Late st Contact Info) Description 02/26/2020 9:00 AM CDT Office Visit [facility] Orthopedics and Sports Medicine [address] [place] [phone] Dougie Loera MD [address] [place] [address] DR [place] [address] [place] [id number] Status post total right knee replacement (Primary Dx) Social History Tobacco Use Types Packs/Day Years Used Date Smoking Tobacco: Never Alcohol Use Standard Drinks/Week Comments Yes 0 (1 standard drink = 0.6 oz pur e alcohol) social Sex and Gender Information Value Date Recorded Sex Assigned at Not on file Legal Sex Male 7:48 AM THERAPIST ASST Gender Identity Male 04/10/2021 6:39 AM THERAPIST ASST Sexual Orientation Straight 03/15/2021 5: 03 PM THERAPIST ASST 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 He is 29 days postop. He comes in today with main complaint is stiffness some pain. He also reports some numbness and tingling in the foot. PHYSICAL EXAM The patient has walked into the office today using a single crutch. He is limping quite a bit. Examination the right knee shows swelling and some stiffness. He has full passive extension but maybe 10?? full extensor lag. Flexion today is measured to exactly 80??. He has no calf pain or swelling. P lantar flexion and dorsiflexion strength at the foot are normal. He has normal sensation in the lower leg. He did not remove his shoe for me today. Stability of the knee is normal. The extensor mechanism is intact IMAGING . X-rays made today show a new knee replacement in good position DIAGNOSIS 1. Status post total right knee replacement Plan: Continue therapy. Re-evaluate in 4-6 weeks. Procedures documented in this encounter Plan of Treatment Not on file documented as of this encounter Results * XR Knee Right 1 or 2 Views (02/26/2020 9:10 AM CDT) Anatomical Region Laterality Modality Lower Extremities, Knee Right [facility] Imaging 02/26/2020 11:4 4 AM CDT Narrative 02/26/2020 11:44 AM CDT Patient Name: COOKIE MAHMOOD ?Ordering Dr: Dougie Loera MD ?? D.O.B: 1960 ? Exam Date: 02/26/20 ?? 0910 ?? Age: 59 ?Sex: Male ? MR#: [id number] ?? Loc: ? RADIOLOGY REPORT ?? Order #[id number] ?? Radiology ? Knee RT 1 or [...] 11:44 AM ?? T: ? Report ID: [id number] ?? Reading Location: ??[id number] ? REPORT ELECTRONICALLY SIGNED IN OTHER VENDOR SYSTEM ?? Resulting Agency Comment O Procedure Note Dougie Loera MD - 02/26/2020 Patient Name: COOKIE MAHMOOD Dr: Dougie Loera MD D.O.B: 1960 Exam Date: 02/26/20909 Age: 59 Sex: Male MR#: [id number] Loc: RADIOLOGY REPORT Order #[id number] Radiology Knee RT 1 or 2 View [...] 11:44 AM - Electronically signed by Dougie CARTER T: Report ID: [id number] Reading Location: [place] [address] REPORT ELECTRONICALLY SIGNED IN OTHER VENDOR SYSTEM us Dougie Loera MD IMG XR PROCEDURES Final Resu lt documented in this encounter Visit Diagnoses Diagnosis Status post total right knee replacement- Primary Status post total right knee replacement documented in this encounter Discontinued Medications Medication Sig Discontinue Reason Start Date End Da te HYDROcodone-acetaminophe n (NORCO) 7.5-325 mg per tabletIndications:Pain,s /p rtkr Take 1 to 2 tablets by mouth every 4 to 6 hours prn pain 02/03/2020 02/26/2020 documented as of this encounter Care Teams Equipment Planner Relationship Specialty Start Date End Date Deshawn Talbert MD [address] [place] [address] PCP - General Internal Medicine 09/07/19 12/27/22 documented as of this encounter
--- OUTSIDE RECORDS SUMMARY | 2024-04-26 21:39 | XMS_ITS | Encounter Summary ---
Author Organization [facility] Address [address] [facility] [address] [place] [address] Care Team Providers Care Creative Strategist Name Role Phone Deshawn Talbert MD Primary Care Provider [phone] [phone] Encounter Details Date Type Department Care Team (Late st Contact Info) Description 01/21/[address] [facility] Orthopedics and Sports Medicine [address] [place] [address] [address] [place] [address] [place] [address] [place] [address] 300 [place] [address] Preop testing (Primary Dx) Social History Tobacco Use Types Packs/Day Years Used Date Smoking Tobacco: Never Alcohol Use Standard Drinks/Week Comments Yes 0 (1 standard drink = 0.6 oz pur e alcohol) social Sex and Gender Information Value Date Recorded Sex Assigned at Not on file Legal Sex Male 7:48 AM BASKET PATCHER Gender Identity Male 04/10/2021 6:39 AM BASKET PATCHER Sexual Orientation Straight 03/15/2021 5: 03 PM BASKET PATCHER 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
--- OUTSIDE RECORDS SUMMARY | 2024-04-26 21:39 | XMS_ITS | Encounter Summary ---
Author Organization [facility] Address [address] [facility] [address] [place] [address] Care Team Providers Care Group Work Program Director Name Role Phone Deshawn Talbert MD Primary Care Provider [phone] Reason for Visit * Reason Onset Date Comments Med Refill 02/11/2020 Encounter Details Date Type Department Care Team (Late st Contact Info) Description 02/11/2020 Telephone [facility] Orthopedics and Sports Medicine [address] [facility] [address] [place] [phone] Dougie Loera MD [address] [place] [address] [address] [place] [address] Med Refill Social History Tobacco Use Types Packs/Day Years Used Date Smoking Tobacco: Never Alcohol Use Standard Drinks/Week Comments Yes 0 (1 standard drink = 0.6 oz pur e alcohol) social Sex and Gender Information Value Date Recorded Sex Assigned at Not on file Legal Sex Male 7:48 AM VISUAL DEVELOPER Gender Identity Male 04/10/2021 6:39 AM VISUAL DEVELOPER Sexual Orientation Straight 03/15/2021 5: 03 PM VISUAL DEVELOPER 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
--- OUTSIDE RECORDS SUMMARY | 2024-04-26 21:39 | XMS_ITS | Encounter Summary ---
Author Organization [facility] Address [address] [facility] [address] [place] [address] Care Team Providers Care Particleboard Factory Worker Name Role Phone Deshawn Talbert MD Primary Care Provider [phone] [phone] Reason for Visit * Reason Comments Pain Encounter Details Date Type Department Care Team (Late st Contact Info) Description 02/12/2020 10:00 AM CDT Office Visit [facility] Orthopedics and Sports Medicine [address] [facility] [address] [place] [address] Washington Castro PA [address] [place] [address] Encounter for removal of elliot (Primary Dx); Status post total right knee replacement Social History Tobacco Use Types Packs/Day Years Used Date Smoking Tobacco: Never Alcohol Use Standard Drinks/Week Comments Yes 0 (1 standard drink = 0.6 oz pur e alcohol) social Sex and Gender Information Value Date Recorded Sex Assigned at Not on file Legal Sex Male 7:48 AM JEWELRY BEARING MAKER Gender Identity Male 04/10/2021 6:39 AM JEWELRY BEARING MAKER Sexual Orientation Straight 03/15/2021 5: 03 PM JEWELRY BEARING MAKER 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 They are here today for staple removal. They deny any fevers, chills, shortness of breath, calfpain, or drainage from the surgical incision. He has had some issues with getting home health physical therapy set up so he has been doing all exercises on his own with his . Physical Exam: Examination of the right knee reveals a well-healed and well-approximated surgical incision with nosigns of erythema, ecchymosis, signs of infection, or drainage. Elliot are still in place. He can passively flex the knee to approximately 70??. Calves are soft and nontender with no clinical indication of a deep vein thrombosis. Isabela's sign is negative bilaterally. Assessment: 1. Encounter for removal of elliot 2. Status post total right knee replacement Plan: Using sterile technique the elliot were removed by me today with no difficulty and Steri-Strips were placed. I advised them to continue with their physical therapy protocol to help with long-term flexibility and strength. I recommended using a knee immobilizer while performing straight leg raise exercises on a daily basis. We also discussed calling the office or going to the emergency room if they notice any signs of calf pain, shortness of breath, fevers, or drainage from the surgical incision and they verbalized understanding. documented in this encounter Plan of Treatment Not on file documented as of this encounter Visit Diagnoses Diagnosis Encounter for removal of elliot- Primary Encounter for removal of sutures Status post total right knee replacement documented in this encounter Care Teams Particleboard Factory Worker Relationship Specialty Start Date End Date Deshawn Talbert MD [address] [place] [address] PCP - General Internal Medicine 09/07/19 12/27/22 documented as of this encounter
--- OUTSIDE RECORDS SUMMARY | 2024-04-26 21:39 | XMS_ITS | Encounter Summary ---
Author Organization [facility] Address [address] [address] Care Team Providers Care Motor Vehicle Clerk Name Role Phone Deshawn Talbert MD Primary Care Provider [phone] [phone] Reason for Referral * Diagnostic Imaging (Routine) - Closed Specialty Diagnoses / Procedures Referred By Contac t Referred To Contact Diagnoses Primary osteoarthritis of right knee Procedures XR Knee Right 3 Views Dougie Loera MD [address] [place] [address] DR [place] [address] [place] [address] Phone: tel: fax: [address] [address] Referral ID Status Reason Start Date Expiration Date Visits Re quested Visits Authorized [id number] Closed 09/22/2019 04/02/2021 1 1 Reason for Visit * Reason Comments Pain Encounter Details Date Type Department Care Team (Late st Contact Info) Description 09/22/2019 10:00 AM CDT Office Visit [facility] Orthopedics and Sports Medicine [address] [place] [phone] Dougie Loera MD [address] [place] [address] [address] Primary osteoarthritis of right knee (Primary Dx) Social History Tobacco Use Types Packs/Day Years Used Date Smoking Tobacco: Never Alcohol Use Standard Drinks/Week Comments Yes 0 (1 standard drink = 0.6 oz pur e alcohol) social Sex and Gender Information Value Date Recorded Sex Assigned at Not on file Legal Sex Male 7:48 AM EXTRA HAND Gender Identity Male 04/10/2021 6:39 AM EXTRA HAND Sexual Orientation Straight 03/15/2021 5: 03 PM EXTRA HAND 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 HISTORY OF PRESENT ILLNESS This patient is a 58-year-old male with chronic right knee pain. He has a history of arthroscopy x3on the right knee secondary to old basketball injuries, cartilage tears and developing arthritis. His last arthroscopy was 15 or so years ago any states that this really has not helped. He has had severe and chronic right knee pain since then. He has grinding and popping. The only thing he can do anymore as golf and that is no longer easy. He has been using some oral medications intermittently aswell as ice and elevation. He can no longer walk any distance or ride bike for exercise and does has gained some weight. REVIEW OF SYSTEMS Review of Systems Constitutional: Negative for chills and fever. HENT: Negative for dental problem. Respiratory: Negative for shortness of breath. Cardiovascular: Negative for chest pain and palpitations. Musculoskeletal: Positive for gait problem and joint swelling. Hematological: Does not bruise/bleed easily. PHYSICAL EXAM This patient has a slight limp noted when he walks. Examination of the right knee shows mild swelling without any redness or warmth or joint effusion. Alignment is neutral. He has full active extension. Right knee flexion is to 125?? with audible and palpable patellofemoral crepitus. There is severe patellofemoral tenderness with pain to palpation and compression of patellofemoral joint. He has some mild medial compartment tenderness and some mild tibiofemoral crepitus. Tibiofemoral stability is normal to varus and valgus stress. Extensor mechanism is intact. He has intact pedal pulses. Skin is in good condition. Motor and sensory are intact. No hip pain or stiffness. IMAGING X-rays made today show severe degenerative joint disease right knee DIAGNOSIS 1. Primary osteoarthritis of right knee Plan: This patient has a severe osteoarthritis of the right knee and would need knee replacement for a surgical solution. I do not believe that arthroscopy is going to be of any benefit for him. We talked about injection for some temporary relief. He is more interested in long-term solution and thereforewould like to discuss total knee arthroplasty. I reviewed the nature of the surgery and complications and expected results with him. We talked about the hospital shut down from the and the fact that we are not resuming surgeries and I do have a back log beginning in mid October when wecan start operating again. He would like to get on the surgery list we will schedule him accordingly for right total knee replacement. Procedures documented in this encounter Plan of Treatment Not on file documented as of this encounter Results * XR Knee Right 3 Views (09/22/2019 10:26 AM CDT) Anatomical Region Laterality Modality Lower Extremities, Knee Right [facility] 09/22/2019 3:00 PM CDT Narrative 09/22/2019 3:01 PM CDT Patient Name: COOKIE MAHMOOD ?Ordering Dr: Dougie Loera MD ?? D.O.B: 1960 ? Exam Date: 05//20 ?? 1026 ?? Age: 58 ?Sex: Male ? MR#: [id number] ?? Loc: ? RADIOLOGY REPORT ?? Order #[id number] ?? Radiology ? Knee RT 3 View [...] 3:01 PM ?? T: ? Report ID: [id number] ?? Reading Location: ??[id number] ? REPORT ELECTRONICALLY SIGNED IN OTHER VENDOR SYSTEM ?? Resulting Agency Comment O Procedure Note Dougie Loera MD - 09/22/2019 Patient Name: COOKIE MAHMOOD Phillip Dr: Dougie Loera MD D.O.B: 1960 Exam Date: 09/22/19 1026 Age: 58 Sex: Male MR#: [id number] Loc: RADIOLOGY REPORT Order #[id number] Radiology Knee RT 3 View (STANDARD) Signed [...] signed by Dougie Loera T: Report ID: [id number] Reading Location: [place] [address] REPORT ELECTRONICALLY SIGNED IN OTHER VENDOR SYSTEM us Dougie Loera MD IMG XR PROCEDURES Final Resu lt documented in this encounter Visit Diagnoses Diagnosis Primary osteoarthritis of right knee- Primary Primary osteoarthritis of right knee documented in this encounter Historical Medications * This list may reflect changes made after this encounter. lisinopriL (PRINIVIL,ZESTRIL ) 20 mg tablet 07/09/2019 hydroCHLOROthiazi de (HYDRODIURIL) 25 mg tabletIndications :hypertension 1 tablet (25 mg total) 08/11/2019 rosuvastatin (CRESTOR) 20 mg tabletIndications :hyperlipidemia Take 1 tablet (20 mg total) by mouth every morning 07/19/2019 meloxicam (MOBIC) 15 mg tablet Take 15 mg by mouth every morning 07/09/2019 04/11/2021 added in this encounter Care Teams Motor Vehicle Clerk Relationship Specialty Start Date End Date Deshawn Talbert MD [address] [place] [address] PCP - General Internal Medicine 09/07/19 12/27/22 documented as of this encounter
--- OUTSIDE RECORDS SUMMARY | 2024-04-26 21:39 | XMS_ITS | Encounter Summary ---
Author Organization [facility] Healthcare Address [address] [place] [address] Care Team Providers Care Senior Administrative Associate Name Role Phone Deshawn Talbert MD Primary Care Provider [phone] [phone] Encounter Details Date Type Department Care Team (Late st Contact Info) Description 01/26/2020 12:50 PM CDT Lab [address] [address] Pre-procedure lab exam Social History Tobacco Use Types Packs/Day Years Used Date Smoking Tobacco: Never Alcohol Use Standard Drinks/Week Comments Yes 0 (1 standard drink = 0.6 oz pur e alcohol) social Sex and Gender Information Value Date Recorded Sex Assigned at Not on file Legal Sex Male 7:48 AM DIVISION MANAGER Gender Identity Male 04/10/2021 6:39 AM DIVISION MANAGER Sexual Orientation Straight 03/15/2021 5: 03 PM DIVISION MANAGER 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 Comment: Interpretive Data Testing performed at [facility] Molecular Infectious Disease Laboratory. The 2019-Novel Coronavirus [...] 14 AM CDT 01/26/2020 1:24 PM CDT Haylee [facility]ESS[facility] - 01/26/2020 10:54 PM CDT Is the patient experiencing any symptoms consistent with COVID (eg. Fever, cough, shortness of breath)?->No What is the reason for testing?->Screening prior to scheduled (>12 hr) surgery or procedure us Dougie Loera MD LAB MICROBIOLOGY - GENERAL O RDERABLES Final Result Performing Organization Address City/State/[facility] Co de Phone Number [facility] Department [place] [address] documented in this encounter Visit Diagnoses Diagnosis Pre-procedure lab exam Pre-procedural laboratory examination documented in this encounter Care Teams Senior Administrative Associate Relationship Specialty Start Date End Date Deshawn Talbert MD [address] [place] [address] PCP - General Internal Medicine 09/07/19 12/27/22 documented as of this encounter
--- OUTSIDE RECORDS SUMMARY | 2024-04-26 21:39 | XMS_ITS | Encounter Summary ---
Author Organization [facility] Healthcare Address [address] [place] [address] Care Team Providers Care Oracle H[employer] Consultant Name Role Phone Deshawn Talbert MD Primary Care Provider [phone] [phone] Encounter Details Date Type Department Care Team (Late st Contact Info) Description 01/28/2020 10:36 AM CDT - 01/30/2020 2:05 PM CDT Hospital Encounter [facility] AD[facility] Dougie Loera MD [address] [place] [address] [address] Discharge Disposition: Discharge to home or self care Social History Tobacco Use Types Packs/Day Years Used Date Smoking Tobacco: Never Alcohol Use Standard Drinks/Week Comments Yes 0 (1 standard drink = 0.6 oz pur e alcohol) social Sex and Gender Information Value Date Recorded Sex Assigned at Not on file Legal Sex Male 7:48 AM SCREENING SPECIALIST Gender Identity Male 04/10/2021 6:39 AM SCREENING SPECIALIST Sexual Orientation Straight 03/15/2021 5: 03 PM SCREENING SPECIALIST 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 Not on file Not on file Not on file documented as of this encounter Last Filed Vital Signs Vital Sign Reading Time Taken Comments Blood Pressure 126/75 01/28/2020 3:12 PM CDT Pulse 83 01/28/2020 3:12 PM CDT Temperature 36.7 ??C (98.1 ??F) 01/28/2020 3:12 PM CD T Respiratory Rate - - Oxygen Saturation 95% 01/28/2020 3:12 PM CDT Inhaled Oxygen Concentration - - Weight 119.7 kg (263 lb 12.8 oz) 01/28/2020 3:12 PM CDT Height 193 cm (6' 4 ) 01/28/2020 3:12 PM CDT Body Mass Index 32.11 01/28/2020 3:12 PM CDT documented in this encounter Medications at Time of Discharge hydroCHLOROthiazi de (HYDRODIURIL) 25 mg tabletIndications :hypertension 1 tablet (25 mg total) 08/11/2019 lisinopriL (PRINIVIL,ZESTRIL ) 20 mg tablet 07/09/2019 rosuvastatin (CRESTOR) 20 mg tabletIndications :hyperlipidemia Take 1 tablet (20 mg total) by mouth every morning 07/19/2019 HYDROcodone-aceta minophen (NORCO) 7.5-325 mg per tablet 01/29/2020 02/03/2020 meloxicam (MOBIC) 15 mg tablet Take 15 mg by mouth every morning 07/09/2019 04/11/2021 documented as of this encounter Discharge Disposition Disposition Code Departure Means Destination Discharge to home or self care documented in this encounter Plan of Treatment Not on file documented as of this encounter Procedures Procedure Name Priority Date/Time Associated Diagnosis Comments CBC WITH AUTO DIFFERENTIAL Routine 01/30/2020 4:48 AM CDT BASIC METABOLIC PANEL Routine 01/30/2020 4:48 AM CDT CBC WITH AUTO DIFFERENTIAL Routine 01/29/2020 5:42 AM CDT BASIC METABOLIC PANEL Routine 01/29/2020 5:42 AM CDT XR KNEE RIGHT 1 OR 2 VIEWS 01/28/2020 12:00 AM CDT documented in this encounter Results * (ABNORMAL) Basic metabolic panel (01/30/2020 4:48 AM CDT) Sodium 134(L) 135 - 145 mmol/L [facility] Potassium 4.2 3.3 - 5.1 mmol/L [facility] Chloride 97 96 - 108 mmol/L [facility] Carbon Dioxide 30 22 - 32 mmol/L [facility] Anion Gap 7 7 - 16 [facility] Glucose 128(H) 70 - 100 mg/dL [facility] BUN 11 8 - 25 mg/dL [facility] Creatinine 1.1 0.5 - 1.3 mg/dL [facility] Comment: NOTE: Estimated GFR (Cockroft-Gault) will NOT be calculated unless patient Height and Weight were entered. Also, Kidney Disease Stage (GFR) and Estimated GFR (Cockroft-Gault) will NOT be calculated if Creatinine result is <0.2. Kidney Disease Stage 73 mL/MIN [facility] Comment: NOTE; ??The GFR is an estimated value using the creatinine, sex, age, and race of the patient. THE Estimated Kidney Disease GFR is validated for AGES 18-70 YEARS STAGE ?mL/Min ?DESCRIPTION ??1 ?90 mL/min or more ?Normal or elevated GFR ??2 ? 60-89 mL/min ?Mildly decreased GFR ??3 ? 30-59 mL/min ?Moderately decreased GFR ??4 ? 15-29 mL/min ?Severely decreased GFR ??5 ? <15 mL/min ? Kidney failure or on dialysis Est GFR (Cockcroft-G) 102 ml/MIN [facility] Comment: Estimated GFR(Cockroft-Gault)is used to calculate patient medication dosage Calcium 9.0 8.6 - 10.3 mg/dL [facility] 01/30/2020 4:48 AM CDT 01/30/2020 5:06 AM CDT Narrative Resulting Agency Comment IN us Dougie Loera MD LAB BLOOD ORDERABLES Final R esult [facility] [address] [place] [address], [facility] [phone] * (ABNORMAL) CBC with auto differential (01/30/2020 4:48 AM CDT) WBC 10.8(H) 3.8 - 9.9 X10 3/ul [facility] RBC 3.78(L) 4.30 - 5.80 x10 6/ul [facility] Hemoglobin 12.1(L) 13.0 - 17.5 g/dL [facility] Hct 34.3(L) 38.9 - 50.3 % [facility] MCV 90.7 81.3 - 96.4 fl [facility] MCH 32.0 27.1 - 33.3 pg [facility] MCHC 35.3 32.3 - 35.7 g/dl [facility] RDW 12.7 11.1 - 14.9 % [facility] Plt Count 171 150 - 400 x10 3/ul [facility] MPV 10.3 9.1 - 12.3 fl [facility] Neut % 74.9 % [facility] Immature Gran % 0.4 % TR RIAL [facility] Lymph % 12.0 % [facility] [place] % 11.5 % [facility] Eos % 0.9 % [facility] AUTO BASO % 0.3 % [facility] NEUTROPHIL ABS # 8.1(H) 1.7 - 6.5 x10 3/ul [facility] Immature Gran # 0.0 0.0 - 0.1 x10 3/ul [facility] Absolute Lymphs (auto) 1.3 0.8 - 3.3 x10 3/ul [facility] Absolute Monos (auto) 1.2(H) 0.2 - 0.8 x10 3/ul [facility] Absolute Eos (auto) 0.1 0.0 - 0.5 x10 3/ul [facility] BASOPHIL ABS # 0.0 0.0 - 0.1 x10 3/ul [facility] Nucleat RBC Rel Count 0.0 #/100WBC [facility] NRBC abs 0.00 0.00 - 0.01 x10 3/ul [facility] Absolute Neutrophils 8,100(H) 200 - 8,000 /ul [facility] 01/30/2020 4:48 AM CDT 01/30/2020 5:06 AM CDT Narrative Resulting Agency Comment IN us Dougie Loera MD LAB BLOOD ORDERABLES Final R esult [facility] [address] [place] [address], [facility] [phone] * (ABNORMAL) Basic metabolic panel (01/29/2020 5:42 AM CDT) Sodium 133(L) 135 - 145 mmol/L [facility] Potassium 4.3 3.3 - 5.1 mmol/L [facility] Chloride 99 96 - 108 mmol/L [facility] Carbon Dioxide 29 22 - 32 mmol/L [facility] Anion Gap 5(L) 7 - 16 [facility] Glucose 126(H) 70 - 100 mg/dL [facility] BUN 12 8 - 25 mg/dL [facility] Creatinine 0.9 0.5 - 1.3 mg/dL [facility] Comment: NOTE: Estimated GFR (Cockroft-Gault) will NOT be calculated unless patient Height and Weight were entered. Also, Kidney Disease Stage (GFR) and Estimated GFR (Cockroft-Gault) will NOT be calculated if Creatinine result is <0.2. Kidney Disease Stage >90 mL/MIN [facility] Comment: NOTE; ??The GFR is an estimated value using the creatinine, sex, age, and race of the patient. THE Estimated Kidney Disease GFR is validated for AGES 18-70 YEARS STAGE ?mL/Min ?DESCRIPTION ??1 ?90 mL/min or more ?Normal or elevated GFR ??2 ? 60-89 mL/min ?Mildly decreased GFR ??3 ? 30-59 mL/min ?Moderately decreased GFR ??4 ? 15-29 mL/min ?Severely decreased GFR ??5 ? <15 mL/min ? Kidney failure or on dialysis Est GFR (Cockcroft-G) 125 ml/MIN [facility] Comment: Estimated GFR(Cockroft-Gault)is used to calculate patient medication dosage Calcium 8.6 8.6 - 10.3 mg/dL [facility] 01/29/2020 5:42 AM CDT 01/29/2020 6:45 AM CDT Narrative Resulting Agency Comment IN us Dougie Loera MD LAB BLOOD ORDERABLES Final R esult [facility] [address] [place] [address], [facility] [phone] * (ABNORMAL) CBC with auto differential (01/29/2020 5:42 AM CDT) WBC 10.7(H) 3.8 - 9.9 X10 3/ul [facility] RBC 3.90(L) 4.30 - 5.80 x10 6/ul [facility] Hemoglobin 12.4(L) 13.0 - 17.5 g/dL [facility] Hct 35.8(L) 38.9 - 50.3 % [facility] MCV 91.8 81.3 - 96.4 fl [facility] MCH 31.8 27.1 - 33.3 pg [facility] MCHC 34.6 32.3 - 35.7 g/dl [facility] RDW 12.6 11.1 - 14.9 % [facility] Plt Count 177 150 - 400 x10 3/ul [facility] MPV 10.8 9.1 - 12.3 fl [facility] Neut % 77.8 % [facility] Immature Gran % 0.3 % TR RIAL [facility] Lymph % 12.0 % [facility] [place] % 8.9 % [facility] Eos % 0.7 % [facility] AUTO BASO % 0.3 % [facility] NEUTROPHIL ABS # 8.3(H) 1.7 - 6.5 x10 3/ul [facility] Immature Gran # 0.0 0.0 - 0.1 x10 3/ul [facility] Absolute Lymphs (auto) 1.3 0.8 - 3.3 x10 3/ul [facility] Absolute Monos (auto) 1.0(H) 0.2 - 0.8 x10 3/ul [facility] Absolute Eos (auto) 0.1 0.0 - 0.5 x10 3/ul [facility] BASOPHIL ABS # 0.0 0.0 - 0.1 x10 3/ul [facility] Nucleat RBC Rel Count 0.0 #/100WBC [facility] NRBC abs 0.00 0.00 - 0.01 x10 3/ul [facility] Absolute Neutrophils 8,300(H) 200 - 8,000 /ul [facility] 01/29/2020 5:42 AM CDT 01/29/2020 6:45 AM CDT Narrative Resulting Agency Comment IN us Dougie Loera MD LAB BLOOD ORDERABLES Final R esult [facility] [address] [place] [address], [facility] [phone] * XR Knee Right 1 or 2 Views (01/28/2020 12:00 AM CDT) Anatomical Region Laterality Modality Lower Extremities, Knee Right Radiogra phic Imaging 01/28/2020 11:3 5 AM CDT Narrative 01/28/2020 11:35 AM CDT Patient Name: COOKIE MAHMOOD ?Ordering Dr: Dougie Loera MD ?? D.O.B: 1960 ? Exam Date: 01/28/20 ?? 0000 ?? Age: 59 ?Sex: Male ? MR#: [id number] ?? Loc: ??S220-01 ? RADIOLOGY REPORT ?? Order #[id number] ?? Radiology ? Knee RT 2Vw(Cant bend/stand) ? Signed ?? EXAM DESCRIPTION: ??Knee RT 2Vw(Cant bend/stand) ? REASON FOR STUDY: ??Right knee osteoarthritis. ??Total knee replacement ? TECHNIQUE: ??Two views submitted. ? COMPARISON: ??09/22/2019 ? FINDINGS: ? There is been interval right total knee arthroplasty in near anatomic ?? alignment. ??There are no fractures. ??Soft tissue gas is present. ??Posterior ?? recess loose body is noted. ? IMPRESSION: ? 1. ??Interval right total knee arthroplasty in near anatomic alignment. ? THIS IS AN ELECTRONICALLY VERIFIED FINAL REPORT ?? 01/28/2020 11:35 AM - Electronically signed by Washington Cavazos ?? Washington Cavazos ? MF ?? D: ??01/28/2020 11:35 AM ?? T: ? Report ID: [id number] ?? Reading Location: ??[id number] ? REPORT ELECTRONICALLY SIGNED IN OTHER VENDOR SYSTEM ?? Resulting Agency Comment I Procedure Note Washington Cavazos MD - 01/28/2020 Patient Name: COOKIE MAHMOOD Dr: Dougie Loera MD DBennyO.B: 1960 Exam Date: 01/28/20 0000 Age: 59 Sex: Male MR#: [id number] Loc: S220-01 RADIOLOGY REPORT Order #[id number] Radiology Knee RT 2Vw(Cant bend/stand) Signed EXAM DESCRIPTION: Knee RT 2Vw(Cant bend/stand) REASON FOR STUDY: Right knee osteoarthritis. Total knee replacement TECHNIQUE: Two views submitted. COMPARISON: 09/22/2019 FINDINGS: There is been interval right total knee arthroplasty in near anatomic alignment. There are no fractures. Soft tissue gas is present.Posterior recess loose body is noted. IMPRESSION: 1. Interval right total knee arthroplasty in near anatomic alignment. THIS IS AN ELECTRONICALLY VERIFIED FINAL REPORT 01/28/2020 11:35 AM - Electronically signed by Washington HO T: Report ID: [id number] Reading Location: [id number] REPORT ELECTRONICALLY SIGNED IN OTHER VENDOR SYSTEM us Dougie Loera MD IMG XR PROCEDURES Final Resu lt documented in this encounter Visit Diagnoses Not on filedocumented in this encounter Care Teams [employer] Consultant Relationship Specialty Start Date End Date Deshawn Talbert MD [address] [place] [address] PCP - General Internal Medicine 09/07/19 12/27/22 documented as of this encounter
--- OUTSIDE RECORDS SUMMARY | 2024-04-26 21:39 | XMS_ITS | Encounter Summary ---
Author Organization [facility] Address [address] [place] [address] Care Team Providers Care Clinical Sales Consultant Name Role Phone Deshawn Talbert MD Primary Care Provider [phone] Reason for Visit * Reason Onset Date Comments home physical therapy 02/02/2020 Encounter Details Date Type Department Care Team (Late st Contact Info) Description 02/02/2020 Telephone [facility] Orthopedics and Sports Medicine [address] [place] [id number] Dougie Loera MD [address] [place] [address] [address] [place] [address] home physical therapy Social History Tobacco Use Types Packs/Day Years Used Date Smoking Tobacco: Never Alcohol Use Standard Drinks/Week Comments Yes 0 (1 standard drink = 0.6 oz pur e alcohol) social Sex and Gender Information Value Date Recorded Sex Assigned at Not on file Legal Sex Male 7:48 AM BODY FITTER Gender Identity Male 04/10/2021 6:39 AM BODY FITTER Sexual Orientation Straight 03/15/2021 5: 03 PM BODY FITTER 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 Phone call to patient again this am, finds patient doing better. He states that he is using his cpm~ 2hrs a day, encouraged to use it more if possible, is a 60 degrees flexion at this time. He also states that he is working on ROM and stretching exercises that were provided from the hospital. Encouraged patient to lie on bed take a towel around the ankle of surgical leg and with both arms, pull on the towel to draw knee back, also sitting on the edge of a hard back chair, and inching his rear end off the edge of the seat. Pt was unable to get HHN or Pt, due to limited availability. Patient encouraged to use compression wrap, and elevate knee with extension to at least heart level or higherto help reduce knee swelling. Spoke with patient about possibly doing OP PT, but patient states dueto his size, traveling in a vehicle is not possible just yet. He will continue with HEP, and CPM, for now. 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 Also wants to know when he can request a refill of his pain medication. He is using 2 every 4 hours at this point. has changed dressing Saturday and Saturday and it has been clean. He is currently using CPM machine at home. documented in this encounter Plan of Treatment Not on file documented as of this encounter Visit Diagnoses Not on filedocumented in this encounter Care Teams Clinical Sales Consultant Relationship Specialty Start Date End Date Deshawn Talbert MD [address] [place] [address] PCP - General Internal Medicine 09/07/19 12/27/22 documented as of this encounter
--- OUTSIDE RECORDS SUMMARY | 2024-04-26 21:39 | XMS_ITS | Encounter Summary ---
Author Organization [facility] Address [address] [place] [address] Care Team Providers Care Automotive Power Electronics Engineer Name Role Phone Deshawn Talbert MD Primary Care Provider + [phone] Encounter Details Date Type Department Care Team (Late st Contact Info) Description 01/15/[address] [facility] Orthopedics and Sports Medicine [facility] [address] [place] [address] [place] [address] [place] [address] [address] [place] [address] Social History Tobacco Use Types Packs/Day Years Used Date Smoking Tobacco: Never Alcohol Use Standard Drinks/Week Comments Yes 0 (1 standard drink = 0.6 oz pur e alcohol) social Sex and Gender Information Value Date Recorded Sex Assigned at Not on file Legal Sex Male 7:48 AM STATISTICAL SECRETARY Gender Identity Male 04/10/2021 6:39 AM STATISTICAL SECRETARY Sexual Orientation Straight 03/15/2021 5: 03 PM STATISTICAL SECRETARY 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
--- OUTSIDE RECORDS SUMMARY | 2024-04-26 21:39 | XMS_ITS | Encounter Summary ---
Author Organization [facility] Healthcare Address [address] [place] [address] Care Team Providers Care Division Director Name Role Phone Deshawn Talbert MD Primary Care Provider [phone] Encounter Details Date Type Department Care Team (Late st Contact Info) Description 01/14/2020 1:38 PM CDT Hospital Encounter [facility] OP INTERIM Dougie Loera MD [facility] [address] [address] Social History Tobacco Use Types Packs/Day Years Used Date Smoking Tobacco: Never Alcohol Use Standard Drinks/Week Comments Yes 0 (1 standard drink = 0.6 oz pur e alcohol) social Sex and Gender Information Value Date Recorded Sex Assigned at Not on file Legal Sex Male 7:48 AM STYRENE DEHYDRATION REACTOR OPERATOR Gender Identity Male 04/10/2021 6:39 AM STYRENE DEHYDRATION REACTOR OPERATOR Sexual Orientation Straight 03/15/2021 5: 03 PM STYRENE DEHYDRATION REACTOR OPERATOR 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 Not on file Not [...] Diagnosis Comments CBC WITH AUTO DIFFERENTIAL Routine 01/14/2020 2:06 PM CDT ANTIBODY SCREEN Routine 01/14/2020 2:06 PM CDT TYPE AND SCREEN Routine 01/14/2020 2:06 PM CDT MRSA ONLY (STAPHYLOCOCCUS AUREUS) PCR Routine 01/14/2020 2:00 PM CDT ECG 12-LEAD 01/14/2020 1:59 PM CDT documented in this encounter Results * Antibody screen (01/14/2020 2:06 PM CDT) Antibody Screen NEGATIVE [facility] 01/14/2020 2:06 PM CDT 01/14/2020 2:10 PM CDT Narrative Resulting Agency Comment CLI Dougie Loera MD LAB BLOOD BANK TEST ORDERABL ES Final Result [address] [phone] * Type and screen (01/14/2020 2:06 PM CDT) Blood Type AP [facility] 01/14/2020 2:06 PM CDT 01/14/2020 2:10 PM CDT Narrative [facility] - 01/14/2020 3:01 PM CDT DOS 01/28/20 Surgery Total Knee Replacement N Resulting Agency Comment CLI Dougie Loera MD LAB BLOOD BANK TEST ORDERABL ES Final Result [address] [phone] * (ABNORMAL) CBC with auto differential (01/14/2020 2:06 PM CDT) [facility] Signature WBC 8.5 3.8 - 9.9 X10 3/ul [facility] RBC 4.73 4.30 - 5.80 x10 6/ul [facility] Hemoglobin 15.0 13.0 - 17.5 g/dL [facility] Hct 41.3 38.9 - 50.3 % [facility] MCV 87.3 81.3 - 96.4 fl [facility] MCH 31.7 27.1 - 33.3 pg [facility] MCHC 36.3(H) 32.3 - 35.7 g/dl [facility] RDW 12.4 11.1 - 14.9 % [facility] Plt Count 231 150 - 400 x10 3/ul [facility] MPV 10.0 9.1 - 12.3 fl [facility] Neut % 60.3 % [facility] Immature Gran % 0.2 % TR RIAL [facility] Lymph % 29.5 % [facility] [place] % 8.3 % [facility] Eos % 1.1 % [facility] AUTO BASO % 0.6 % [facility] NEUTROPHIL ABS # 5.1 1.7 - 6.5 x10 3/ul [facility] Immature Gran # 0.0 0.0 - 0.1 x10 3/ul [facility] Absolute Lymphs (auto) 2.5 0.8 - 3.3 x10 3/ul [facility] Absolute Monos (auto) 0.7 0.2 - 0.8 x10 3/ul [facility] Absolute Eos (auto) 0.1 0.0 - 0.5 x10 3/ul [facility] BASOPHIL ABS # 0.1 0.0 - 0.1 x10 3/ul [facility] Nucleat RBC Rel Count 0.0 #/100WBC [facility] NRBC abs 0.00 0.00 - 0.01 x10 3/ul [facility] Absolute Neutrophils 5,100 200 - 8,000 /ul [facility] 01/14/2020 2:06 PM CDT 01/14/2020 2:10 PM CDT Narrative Resulting Agency Comment CLI Dougie Loera MD LAB BLOOD ORDERABLES Final R esult [address] [phone] * MRSA Only (Staphylococcs aureus) PCR (01/14/2020 2:00 PM CDT) Nasal Screen MRSA NEGATIVE NEGATIVE [facility] Comment: MRSA target DNA sequences are not detected. Nasal S. aureus Screen NEGATIVE NEGATIVE [facility] Comment: Staphylococcus aureus target DNA sequences are not detected. 01/14/2020 2:00 PM CDT 01/14/2020 2:11 PM CDT Narrative [facility] - 01/14/2020 3:22 PM CDT Collected By cs Resulting Agency Comment CLI us Dougie Loera MD LAB MICROBIOLOGY - GENERAL O RDERABLES Final Result Performing Organization Address City/[facility]/ZIP Co de Phone Number [address] [phone] * ECG 12 lead (01/14/2020 1:59 PM CDT) Ventricular Rate EKG/Min 61 BPM [facility] Atrial Rate 61 BPM [facility] [place]-Interval (MSEC) 170 ms [facility] QRS-Interval (MSEC) 106 ms [facility] QT-Interval (MSEC) 400 ms [facility] QTc 402 ms [facility] P [place] 48 degrees [facility] R [place] 42 degrees [facility] T [place] 16 degrees [facility] Diagnosis Normal sinus rhythm Normal ECG No previous ECGs available [facility] 01/14/2020 1:59 PM CDT 01/14/2020 6:36 PM CDT Narrative Resulting Agency Comment OUTPAT us Tunde Hale MD ECG ORDERABLES Final Result Performing Organization Address City/State/[facility] Co de Phone Number [address] documented in this encounter Visit Diagnoses Not on filedocumented in this encounter Care Teams Division Director Relationship Specialty Start Date End Date Deshawn Talbert MD [address] [place] [address] PCP - General Internal Medicine 09/07/19 12/27/22 documented as of this encounter
--- OUTSIDE RECORDS SUMMARY | 2024-04-26 21:40 | XMS_ITS | Encounter Summary ---
Author Organization [facility] Healthcare Address [address] [place] [address] Care Team Providers Care Script Worker Name Role Phone Unavailable Primary Care Provider Unavailabl e Encounter Details Date Type Department Care Team (Late st Contact Info) Description 09/03/2006 12:11 PM CDT - 09/04/2006 4:30 PM CDT Hospital Encounter [facility] Gel[facility] Yin MD [address] [place] [address] Social History Tobacco Use Types Packs/Day Years Used Date Smoking Tobacco: Never Assessed Sex and Gender Information Value Date Recorded Sex Assigned at Not on file Legal Sex Male 7:48 AM STOCK RAISER Gender Identity Male 04/10/2021 6:39 AM STOCK RAISER Sexual Orientation Straight 03/15/2021 5: 03 PM STOCK RAISER documented as of this encounter Plan of Treatment Not on file documented as of this encounter Visit Diagnoses Not on filedocumented in this encounter
== END 2024-04-20 08:57 | disposition home or self-care (01) ==
LOC: ANHGOSHLAB 08:58
PROVIDERS: PCP Family Medicine
DX: R73.03 Prediabetes (principal); I10 Essential (primary) hypertension; E78.2 Mixed hyperlipidemia
CPT/HCPCS: 36415; 80053; 85025

== ENCOUNTER 2024-05-25 12:57 | Outpatient (CLI) | payer OTHER, SELFPAY ==
[2024-05-25 16:24] LABS: Add Urine Microscopic? YES; Appearance Urine Clear (Clear); Bacteria Urine None Seen /hpf; Bilirubin Urine Negative (Negative); Blood Urine Negative (Negative); Color Urine Yellow (Yellow); Glucose Urine UA Negative (Negative); Ketones Urine Trace mg/dL (Negative); Leukocyte Esterase Ur Trace LEU/UL (Negative); Nitrate Urine Negative (Negative); Non Pathogenic Casts 0-2; Protein Urine Negative (Negative); RBC Urine 0-2 /hpf (0-2); Squamous Epithelial Cell Urine None Seen /hpf (Few); Urobilinogen Urine 0.2 mg/dL (<2.0); pH Urine 5.5 (5.0-9.0)
[2024-05-25 16:35] LABS: Cholesterol 165 mg/dL (0-200); HDL Direct 39 mg/dL; Triglycerides 424 mg/dL (<150)
[2024-05-25 16:46] LABS: LDL Cholesterol Direct 86 mg/dL
== END 2024-05-25 12:58 | disposition home or self-care (01) ==
PROVIDERS: PCP Registered Nurse; Visit Provider Registered Nurse
DX: R73.03 Prediabetes (principal); I10 Essential (primary) hypertension; E78.2 Mixed hyperlipidemia
CPT/HCPCS: 36415; 80061; 81001; 84443; 84550

== ENCOUNTER 2025-02-01 15:40 | Outpatient (CLI) | payer OTHER, SELFPAY ==
--- OUTSIDE RECORDS SUMMARY | 2025-02-01 16:30 | XMS_ITS | Clinical Summary ---
Author Organization [facility] Address [address] [place] [address] Care Team Providers Care Roller Staker Name Role Phone Deshawn Talbert MD Primary Care Provider [phone] Source Comments [facility],non-owned Affiliates and Associated Physician Practices is amultiple site organization consisting of ambulatory clinics and hospital sitesin [place], [place], [place] and [place]. This disclosure is being madepursuant to the Care Everywhere program and may not contain all information available regarding this patient. Last updated 18.[facility] Allergies No known active allergies Medications * Be aware that medications may not be up to date on this document. Alwaysverify current medications with the patient. multivitamin with iron (Ultra Solo) capsule Take 1 (one) capsule by mouth every morning Active meloxicam (Mobic) 15 MG tablet Take 1 (one) tablet by mouth once daily 10/04/2022 Active hydroCHLOROthiaz ryan (Hydrodiuril) 25 MG tablet 12/04/2022 Active lisinopril (Prinivil; Zestril) 20 MG tablet 12/18/2022 Active rosuvastatin (Crestor) 20 MG tablet Take 1 (one) tablet by mouth once daily 05/28/2022 Active buPROPion XL 24hr (Wellbutrin-XL) 150 MG tablet Take 1 (one) tablet by mouth every morning 10/07/2022 Active omeprazole (PriLOSEC) 40 MG capsuleIndicatio ns:Dysphagia, unspecified type TAKE 1 CAPSULE BY MOUTH TWICE DAILY 180 capsule 02/01/2023 Active Social History Tobacco Use Types Packs/Day Years Used Date Smoking Tobacco: Never Assessed Sex and Gender Information Value Date Recorded Sex Assigned at Not on file Legal Sex Male 4:12 AM CDT Gender Identity Not on file Sexual Orientation Not on file Last Filed Vital Signs Vital Sign Reading Time Taken Comments Blood Pressure 120/80 12/20/2022 8:46 AM CDT Pulse - - Temperature - - Respiratory Rate - - Oxygen Saturation - - Inhaled Oxygen Concentration - - Weight 114.3 kg (252 lb) 12/20/2022 8:46 AM CDT Height 193 cm (6' 4) 12/20/2022 8:46 AM CDT Body Mass Index [...] 12/03/1978 DTAP/TDAP/TD VACCINES (1 - Tdap) 12/08/1979 PNEUMOCOCCAL VACCINE 50+ (1 of 1 - PCV) 2010 ZOSTER VACCINE (1 of 2) 2010 SCREENING FOR DIABETES 12/20/2022 DEPRESSION SCREENING 05/06/2024 COVID-19 VACCINE (1 - 2023-2 5 season) 2025 INFLUENZA VACCINE (#1) 2025 , 07/12/2018 Respiratory Syncytial Virus (RSV) Vaccine [...] patient's age to complete this topic MENINGOCOCCAL (Group B) VACCINE SHARED DECISION-MAKING Aged Out No longer eligible based on patient's age to complete this topic MENINGOCOCCAL GROUPS A/C/Y/W VACCINE Aged Out No longer eligible b ased on patient's age to complete this topic Insurance [facility] Address: [facility] [address] [place] [address] [facility] Address: [facility] [id number] [place] [address] Care Teams Roller Staker Relationship Specialty Start Date End Date Deshawn Talbert MD [address] [place] [address] PCP - General 12/31/18
--- OUTSIDE RECORDS SUMMARY | 2025-02-01 16:30 | XMS_ITS | Clinical Summary ---
Author Organization [facility] Address [address] [place] [address] Care Team Providers Care Second Ride Fare Collector Name Role Phone Arabella Patterson Primary Care Provider [phone] Allergies No known active allergies Medications acetaminophen CR (TYLENOL) 650 MG Tab CR 8 hr tablet Take 2 tablets (1,300 mg total) by mouth 2 (two) times daily. Active metFORMIN (GLUCOPHAGE) 500 MG tablet TAKE 1 TABLET BY MOUTH 2 TIMES PER DAY WITH MEALS 08/02/19 24 Active Multiple Vitamin (MULTIVITAMIN) capsule Take 1 capsule by mouth daily. Active rosuvastatin (CRESTOR) 20 MG tabletIndications: Primary hypertension Take 1 tablet (20 mg total) by mouth daily. 90 tablet 3 07/28/19 25 Active buPROPion XL (WELLBUTRIN XL) 300 MG 24 hr tablet Take 1 tablet (300 mg total) by mouth every morning. Active sertraline (ZOLOFT) 100 MG tablet Take 1 tablet (100 mg total) by mouth daily. Active lisinopril (PRINIVIL) 20 MG tabletIndications: Mixed hyperlipidemia Take 1 tablet (20 mg total) by mouth daily. 90 tablet 3 12/17/19 25 Active meloxicam (MOBIC) 15 MG tabletIndications: Left hip pain TAKE 1 TABLET (15 MG TOTAL) BY MOUTH DAILY. 30 tablet 01/07/20 25 Active omeprazole (PRILOSEC) 20 MG capsuleIndications :Gastroesophageal reflux disease, unspecified whether esophagitis present TAKE 1 CAPSULE BY MOUTH EVERY DAY 90 capsule 1 01/08/20 25 Active meloxicam (MOBIC) 15 MG tabletIndications: Left hip pain Take 1 tablet (15 mg total) by mouth daily. 30 tablet 12/10/19 25 025 Discontinued omeprazole (PRILOSEC) 20 MG capsuleIndications :Gastroesophageal reflux disease, unspecified whether esophagitis present Take 1 capsule (20 mg total) by mouth daily. 30 capsule 1 12/17/19 25 025 Discontinued Active Problems Problem Noted Date Diagnosed Date Prediabetes 04/17/2024 Left hip pain 04/17/2024 Hiatal hernia 04/17/2024 Hypertension Hyperlipidemia Depression Encounters Date Type Department Care Team Description 12/16/2024 2:20 PM CDT Office Visit [facility] [address] [address] Arabella Patterson APNP Hypertension; Heartburn (Pt c/o worsening heartburn x 1 month. He has had a Lala fundoplication for a hiatal hernia in 2001, and had it stretched again 3 more times since then. He feels he may need another procedure.); Change In Bowel (Pt c/o significant changes in bowel habits x 6 months. He reports he will only have 1-2 normal solid BMs a month, the rest of the time he has urgency and loose, watery stools.); Cough (Pt's reports pt coughs a lot at night, while wearing his CPAP.) 12/16/2024 Travel 11/09/2024 Telephone [facility] [address] [phone] Arabella Patterson APNP Question from Last 3 Months Immunizations Immunization Administration Dates Next Due Fluzone (IIV3, Trivalent, [...] Never Smokeless Tobacco: Never Tobacco Cessation:Counseling Given: Not Answered Alcohol Use Standard Drinks/Week Comments Yes 3.3 (1 standard drin k = 0.6 oz pure alcohol) 3 beer max/ day for 30 yrs. Zero beers in 2024 PHQ-2 Answer Date Recorded Patient Health Questionnaire-2 Score 4 12/17/2024 Sex and Gender Information Value Date Recorded Sex Assigned at Male 12/16/2024 2:34 PM CDT Legal Sex Male 5:45 PM CDT Gender Identity Not on file Sexual Orientation Not on file Last Filed Vital Signs Vital Sign Reading Time Taken Comments Blood Pressure 118/68 12/16/2024 2:34 PM CDT Pulse 71 12/16/2024 2:34 PM CDT Temperature 36.9 C (98.4 F) 12/16/2024 2:34 PM CDT Respiratory Rate 16 12/16/2024 2:34 PM CDT Oxygen Saturation 94% 12/16/2024 2:34 PM CDT Inhaled Oxygen Concentration - - Weight 112.4 kg (247 lb 12.8 oz) 12/16/2024 2:34 PM CDT Height 193 cm (6' 4) 12/16/2024 2:34 PM CDT Body Mass Index 30.16 12/16/2024 2:34 PM CDT Plan of Treatment Health Maintenance Due Date Last Done Comments Annual Physical 12/08/1963 Hepatitis C 1978 DTaP, Tdap and Td Vaccines ( 1 - Tdap) 12/08/1979 Pneumococcal Vaccine: 50+ Years (1 of 1 - PCV) 2010 Colorectal Cancer Screening Colonoscopy (10 Years) 12/18/2032 RSV Immunization or 60+ Years (1 - 1-dose 75+ series) 12/08/2035 Zoster Vaccines Completed 06/29/2022, 03/09/2022 COVID-19 Vaccine Completed 04/17/2024, 08/25/2020, 08/01/2020 PHQ-2 (Physician [place]) Completed 12/17/2024 Meningococcal B Vaccine Aged Out No l onger eligible based on patient's age to complete this topic Meningococcal Vaccine Aged Out No jessie nika eligible based on patient's age to complete this topic RSV Immunizations Under 20 Months Aged Out No longer eligible b ased on patient's age to complete this topic Insurance [employer] OPEN ACCESS [facility] Care Teams Second Ride Fare Collector Relationship Specialty Start Date End Date Arabella Patterson APNP [address] [place] [address] PCP - General NURSE PRACTITIONER 04/17/24
--- OUTSIDE RECORDS SUMMARY | 2025-02-01 16:30 | XMS_ITS | Encounter Summary ---
Author Organization [facility] Address [address] [place] [address] Care Team Providers Care Engine Pilot Name Role Phone Deshawn Talbert MD Primary Care Provider Encounter Details Date Type Department Care Team (Late st Contact Info) Description 10/07/2024 Lab Requisition [facility] - DermPath Lab [address] [place] [address] Michelle Silver MD [address] 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 [address] DEPT [place] [address] Social History Tobacco Use Types Packs/Day Years [...] Procedure Name Priority Date/Time Associated Diagnosis Comments DERMATOPATHOLOGY Routine 10/07/2024 1:24 PM CDT documented in this encounter Results * DERMATOPATHOLOGY (10/07/2024 1:24 PM CDT) Case Report Dermatopathology Report Case: [id number] Authorizing Provider: Michelle Silver MD Collected: 10/07/2024 01:24 PM Ordering Location: [facility] - Received: 10/09/2024 06:06 AM DermPath Lab Pathologist: Li Angeles MD Specimen: Skin, right cheek 4:23 PM CDT DERMATOPATHOLOGY LABORATORY Final Diagnosis Specimen A. SKIN, right cheek: SQUAMOUS CELL CARCINOMA IN SITU, PRESENT AT THE BASE OF THE SPECIMEN (D04.39) (see microscopic description and comment) 06/09/202 5 4:23 PM CDT DERMATOPATHOLOGY LABORATORY at 1623 CDT Clinical History R/O HAK vs. SCC vs. Other, Growing Non Healing 4:23 PM CDT DERMATOPATHOLOGY LABORATORY Gross Description Specimen A: Received is one formalin filled container labeled with the patient's name and designated right cheek. The specimen consists of a shave biopsy measuring 6x9x1 mm. Jar 0. 4:23 PM CDT DERMATOPATHOLOGY LABORATORY Microscopic Description Specimen A. SKIN, right cheek: The epidermis shows parakeratosis, full thickness disorderly maturation of keratinocytes, mitoses at different levels, and dyskeratotic cells. The lesion extends to the base of the biopsy. COMMENT: An invasive squamous cell carcinoma cannot be ruled out. 4:23 PM CDT DERMATOPATHOLOGY LABORATORY Disclaimer An external and internal positive and negative controls are appropriate for the histochemical, immunohistochemical and immunofluorescence stain(s) in this case (if any), except where stated explicitly. The performance characteristics of the stain(s) cited in this report were developed and its performance characteristic determined by the Dermatopathology Laboratory at [facility], directed by Dr. Rosana Gerard. These tests need not be, and therefore are not, approved by the [place] Food and Drug Administration. The tests are used for clinical purposes. Billing Codes Specimen Charges Stain Charges 14055 1 4:23 PM CDT DERMATOPATHOLOGY LABORATORY Embedded Images 4:23 PM CDT DERMATOPATHOLOGY LABORATORY Pathology/Cytolo gy TISSUE SPECIMEN FROM SKIN / Unknown 10/07/2024 1:24 PM CDT 10/09/2024 6:06 AM CDT us Michelle Silver MD LAB - PATHOLOGY/CYTOLOGY OR DERABLES Final Result DERMATOPATHOLOGY LABORATORY [facility] - Department of Dermatology [address] [place] [address], [facility] [phone] documented in this encounter Visit Diagnoses Not on filedocumented in this encounter Care Teams Engine Pilot Relationship Specialty Start Date End Date Deshawn Talbert MD [address] [place] [address] PCP - General 12/31/18 documented as of this encounter
--- OUTSIDE RECORDS SUMMARY | 2025-02-01 16:31 | XMS_ITS | Clinical Summary ---
Author Organization [facility] Address [address] [place] [address] Care Team Providers Care Roentgenologist Name Role Phone Gal De Jesus Primary Care Provider [phone] Allergies No known active allergies Medications rosuvastatin (CRESTOR) 20 mg tabletIndicati ons:hyperlipid emia Take 1 tablet (20 mg total) by mouth every morning 07/19/19 20 Active hydroCHLOROthi azide (HYDRODIURIL) 25 mg tabletIndicati ons:hypertensi on 1 tablet (25 mg total) 08/11/19 20 Active lisinopriL (PRINIVIL,ZEST RIL) 20 mg tablet 07/09/19 20 Active multivitamin capsuleIndicat ions:Vitamin Deficiency Prevention Take 1 capsule by mouth every morning Active acetaminophen ER (TYLENOL) 650 mg 8 hr tabletIndicati ons:Arthritic Pain Take 2 tablets (1,300 mg total) by mouth 2 (two) times a day Active meloxicam (MOBIC) 15 mg tablet Take 1 tablet (15 mg total) by mouth daily 10/05/19 23 Active sertraline (ZOLOFT) 100 mg tabletIndicati ons:Current moderate episode of major depressive disorder without prior episode (HCC) Take 1.5 tablets (150 mg total) by mouth daily 135 tablet 2 01/08/20 25 Active buPROPion XL (WELLBUTRIN XL) 300 mg 24 hr tabletIndicati ons:major depressive disorder TAKE 1 TABLET (300 MG TOTAL) BY MOUTH EVERY MORNING. 90 tablet 1 01/09/20 25 025 Active buPROPion XL (WELLBUTRIN XL) 300 mg 24 hr tabletIndicati ons:major depressive disorder TAKE 1 TABLET (300 MG TOTAL) BY MOUTH EVERY MORNING. 90 tablet 1 07/21/19 25 025 Discontinued sertraline (ZOLOFT) 100 mg tabletIndicati ons:Current moderate episode of major depressive disorder without prior episode (HCC) Take 1 tablet (100 mg total) by mouth daily 90 tablet 1 01/02/20 25 025 Discontinued(Re order) Active Problems Problem Noted Date Diagnosed Date Glenohumeral arthritis, right 03/13/2021 Overview (03/13/2021): Added automatically from request for surgery [id number] Encounters Date Type Department Care Team Description 01/07/2025 11:15 AM CDT Telemedicine [facility] [address] Pauly Orlando MD Current moderate episode of major depressive disorder without prior episode (HCC) (Primary Dx); Prolonged grief disorder 11/20/2024 3:30 PM CDT Telemedicine [facility] [address] [phone] Pauly Orlando MD Current moderate episode of major depressive disorder without prior episode (HCC) (Primary Dx); Prolonged grief disorder from Last 3 Months Immunizations Immunization Administration Dates Next Due Influenza, Quadrivalent, Spl it, Preservative Free, Intramuscular 03/17/2021,07/12/2018 Surgical History Surgery Date Site/Laterality Comments BACK SURGERY ACHILLES TENDON REPAIR 02/04/1992 - 03/05/1992 KNEE SURGERY Right rtkr TX ARTHRP KNE CONDYLE&PLATU MEDIAL&LAT COMPARTMENTS 01/28/2020 Right [...] Medical History Relation Name Comments Arthritis Father Dionte Breanne Cancer Father Dionte Mahmood Heart disease Father Dionte Mahmood Relation Name Status Comments Father Dionte Mahmood Social History Tobacco Use Types Packs/Day Years [...] on file Legal Sex Male 7:48 AM CLASSIFICATION CLERK Gender Identity Male 04/10/2021 6:39 AM CLASSIFICATION CLERK Sexual Orientation Straight 03/15/2021 5: 03 PM CLASSIFICATION CLERK 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 Not on file Not on file Not on file Obstetrics History Last Filed Vital Signs Vital Sign Reading Time Taken Comments Blood Pressure 130/78 12/27/2022 8:29 AM CDT Pulse 70 12/27/2022 8:29 AM CDT Temperature 36.7 C (98.1 F) 04/11/2021 7:00 PM CLASSIFICATION CLERK Respiratory Rate 11 04/11/2021 7:00 PM CLASSIFICATION CLERK Oxygen Saturation 94% 04/11/2021 7:00 PM CLASSIFICATION CLERK Inhaled Oxygen Concentration - - Weight 115.2 kg (254 lb) 12/27/2022 8:29 AM CDT Height 191 cm (6' 3.2) 12/27/2022 8:29 AM CDT Body Mass Index 31.58 12/27/2022 8:29 AM CDT Plan of Treatment Health Maintenance Due Date Last Done Comments Colon Cancer Screening-Colonoscopy 1960 Depression Screening 1960 Hepatitis C Screening 1960 Prostate Cancer Screening-PSA 1960 DTaP/Tdap/Td Vaccine (1 - Tdap) 12/08/1971 Hepatitis B Screening 1978 Regular Well Visit/Exam 18-64 1978 Covid-19 Vaccine ( season) 2025 08/25/2020, 08/01/2020 Influenza Vaccine (#1) 2025 , 04/04/2023, 02/28/2022, Additional history exists Zoster Vaccine Completed 06/29/2022, 03/09/2022 Pneumococcal vaccine <65 Aged Out No longer eligible based on patient's age to complete this topic Insurance [facility] [id number] [facility] [id number] [facility] [id number] Care Teams Roentgenologist Relationship Specialty Start Date End Date Gal De Jesus DO [address] [place] [address] DR FRANKLIN [address] [place] [address] PCP - General Family Medicine 12/28/22
[2025-02-04 15:09] LABS: Pancreatic Elastase, Fecal 544 (>200)
== END 2025-02-01 15:41 | disposition home or self-care (01) ==
PROVIDERS: PCP Registered Nurse; Visit Provider Nurse Practitioner Family
DX: K52.9 Noninfective gastroenteritis and colitis, unspecified (principal)
CPT/HCPCS: 82653; 87045; 87427

== ENCOUNTER 2025-03-29 00:30 | Day surgery (SDC) | payer OTHER, SELFPAY ==
[2025-03-12 13:09] VITALS: BMI 30.4
--- OUTSIDE RECORDS SUMMARY | 2025-03-29 00:34 | XMS_ITS | Clinical Summary ---
Author Organization [facility] Address [address] [place] [address] Care Team Providers Care Hotel Service Manager Name Role Phone Arabella Patterson Primary Care Provider [phone] Allergies No known active allergies Medications acetaminophen [...] MG TOTAL) BY MOUTH DAILY. 30 tablet 03/17/20 25 Active omeprazole (PRILOSEC) 20 MG capsuleIndications :Gastroesophageal reflux disease, unspecified whether esophagitis present Take 1 capsule (20 mg total) by mouth daily. 90 capsule 3 03/23/20 25 Active omeprazole (PRILOSEC) 20 MG capsuleIndications :Gastroesophageal reflux disease, unspecified whether esophagitis present TAKE 1 CAPSULE BY MOUTH EVERY DAY 90 capsule 1 01/08/20 25 025 Discontinued meloxicam (MOBIC) 15 MG tabletIndications: Left hip pain TAKE 1 TABLET (15 MG TOTAL) BY MOUTH DAILY. 30 tablet 02/09/20 25 025 Discontinued Active Problems Problem Noted Date Diagnosed Date Prediabetes 04/17/2024 Left hip pain 04/17/2024 Hiatal hernia 04/17/2024 Hypertension Hyperlipidemia Depression Encounters Date Type Department Care Team Description 02/01/2025 Scan [facility] Scanned, [facility] Lab (SCAN) from Last 3 Months Immunizations Immunization Administration [...] and Td Vaccines (1 - Tdap) 12/08/1979 Pneumococcal Vaccine: 50+ Years (1 of 1 - PCV) 2010 COVID-19 Vaccine ( - season) 2025 04/17/2024, 08/25/2020, 08/01/2020 Influenza Adult (#1) 2025 04/17/2024, 04/04/2023, 02/28/2022, Additional history exists Colorectal Cancer Screening Colonoscopy (10 Years) 12/18/2032 RSV Immunization or 60+ Years (1 - 1-dose 75+ series) 12/08/2035 Zoster Vaccines Completed 06/29/2022, 03/09/2022 PHQ-2 (Physician [place]) Completed 12/17/2024 Hepatitis A Vaccines Aged Out No long er eligible based on patient's age to complete this topic Meningococcal B Vaccine Aged Out No l onger eligible based on patient's age to complete this topic Meningococcal Vaccine Aged Out No jessie nika eligible based on patient's age to complete this topic RSV Immunizations Under 20 Months Aged Out No longer eligible based on patient's age to complete this topic Procedures Procedure Name Priority Date/Time Associated Diagnosis Comments OUTSIDE LAB (SCAN ORDER) 02/01/2025 from Last 3 Months Results * OUTSIDE LAB (SCAN ORDER) (02/01/2025) 02/01/2025 us Doc Med Group Scanned SCANNING Final Resu lt from Last 3 Months Insurance [employer] OPEN ACCESS [facility] Care Teams Hotel Service Manager Relationship Specialty Start Date End Date Arabella Patterson APNP [address] [place] [address] PCP - General NURSE PRACTITIONER 04/17/24
--- OUTSIDE RECORDS SUMMARY | 2025-03-29 00:34 | XMS_ITS | Clinical Summary ---
Author Organization [facility] Address [address] [place] [address] Care Team Providers Care Qa Consultant Name Role Phone Deshawn Talbert MD Primary Care Provider [phone] Source Comments [facility],non-owned Affiliates and Associated Physician Practices is amultiple site organization consisting of ambulatory clinics and hospital sitesin [place], [place], [place] and [place]. This disclosure is being madepursuant to the Care Everywhere program and may not contain all information available regarding this patient. Last updated 18.[facility] Allergies No known active allergies Medications * [...] DEPRESSION SCREENING 05/06/2024 COVID-19 VACCINE (1 - 2024-2 6 season) 2025 INFLUENZA VACCINE (#1) 2025 , [...] age to complete this topic Insurance [facility] Address: [facility] [id number] [place] [address] [facility] Address: [facility] [address] [place] [address] Care Teams Qa Consultant Relationship Specialty Start Date End Date Deshawn Talbert MD [address] [place] [address] PCP - General 12/31/18
--- OUTSIDE RECORDS SUMMARY | 2025-03-29 00:34 | XMS_ITS | Clinical Summary ---
Author Organization [facility] [place] [facility] Address [address] [place] [address] Care Team Providers Care Extruder Operator Vertical Name Role Phone Gal De Jesus Primary Care Provider [phone] Allergies No known active allergies Medications rosuvastatin (CRESTOR) 20 mg tabletIndicatio ns:hyperlipidem ia Take 1 tablet (20 mg total) by mouth every morning 07/19/2019 Active hydroCHLOROthia zide (HYDRODIURIL) 25 mg tabletIndicatio ns:hypertension 1 tablet (25 mg total) 08/11/2019 Active lisinopriL (PRINIVIL,ZESTR IL) 20 mg tablet 07/09/2019 Active multivitamin capsuleIndicati ons:Vitamin Deficiency Prevention Take 1 capsule by mouth every morning Active acetaminophen ER (TYLENOL) 650 mg 8 hr tabletIndicatio ns:Arthritic Pain Take 2 tablets (1,300 mg total) by mouth 2 (two) times a day Active meloxicam (MOBIC) 15 mg tablet Take 1 tablet (15 mg total) by mouth daily 10/04/2022 Active sertraline (ZOLOFT) 100 mg tabletIndicatio ns:Current moderate episode of major depressive disorder without prior episode (HCC) Take 1.5 tablets (150 mg total) by mouth daily 135 tablet 2 01/07/2025 Active buPROPion XL (WELLBUTRIN XL) 300 mg 24 hr tabletIndicatio ns:major depressive disorder TAKE 1 TABLET (300 MG TOTAL) BY MOUTH EVERY MORNING. 90 tablet 1 01/08/2025 5 Active Active Problems Problem Noted Date Diagnosed Date Glenohumeral arthritis, right 03/13/2021 Overview (03/13/2021): Added automatically from request for surgery [id number] Encounters Date Type Department Care Team Description 02/17/2025 3:00 PM CDT Telemedicine [facility] [address], [place] [address] [place] [address] Pauly Orlando MD Current moderate episode of major depressive disorder without prior episode (HCC) (Primary Dx); Prolonged grief disorder 01/07/2025 11:15 AM CDT Telemedicine [facility] [address], [address] [address] Pauly Orlando MD Current moderate episode of major depressive disorder without prior episode (HCC) (Primary Dx); Prolonged grief disorder from Last 3 Months Immunizations Immunization Administration Dates Next Due Influenza, Quadrivalent, Spl it, Preservative Free, Intramuscular 03/17/2021,07/12/2018 Surgical History Surgery Date Site/Laterality Comments BACK SURGERY ACHILLES TENDON REPAIR 02/04/1992 - 03/05/1992 KNEE SURGERY Right rtkr [place] ARTHRP KNE CONDYLE&PLATU MEDIAL&LAT COMPARTMENTS 01/28/2020 Right [...] History Relation Name Comments Arthritis Father Dionte Mahmood Cancer Father Dionte Breanne Heart disease Father Dionte Mahmood Relation Name Status Comments Father Dionte Mahomod Social History Tobacco Use Types Packs/Day Years [...] on file Legal Sex Male 7:48 AM PROJECT PLANNER Gender Identity Male 04/10/2021 6:39 AM PROJECT PLANNER Sexual Orientation Straight 03/15/2021 5: 03 PM PROJECT PLANNER 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 Not on file Not on file Not on file Last Filed Vital Signs Vital Sign Reading Time Taken Comments Blood Pressure 130/78 12/27/2022 8:29 AM CDT Pulse 70 12/27/2022 8:29 AM CDT Temperature 36.7 C (98.1 F) 04/11/2021 7:00 PM PROJECT PLANNER Respiratory Rate 11 04/11/2021 7:00 PM PROJECT PLANNER Oxygen Saturation 94% 04/11/2021 7:00 PM PROJECT PLANNER Inhaled Oxygen Concentration - - Weight 115.2 [...] patient's age to complete this topic Insurance [facility] [id number] [facility] [id number] [facility] [id number] Care Teams Extruder Operator Vertical Relationship Specialty Start Date End Date Gal De Jesus DO [facility] [address] [place] [address] PCP - General Family Medicine 12/28/22
--- OUTSIDE RECORDS SUMMARY | 2025-03-29 00:34 | XMS_ITS | Encounter Summary ---
Author Organization [facility] Address [address] [place] [address] Care Team Providers Care Landscape Painter Name Role Phone Deshawn Talbert MD Primary Care Provider Encounter Details Date Type Department Care Team (Late st Contact Info) Description 10/07/2024 Lab Requisition [facility] - DermPath Lab [address] [facility] [address] [facility] [facility] [place] [address] Michelle Silver MD [address] [facility] [address] [place] [address] Social History Tobacco Use Types Packs/Day Years [...] PM CDT) Case Report Dermatopathology Report Case: [id number] Authorizing Provider: Michelle Silver MD Collected: 10/07/2024 01:24 PM Ordering Location: [facility] - Received: 10/09/2024 06:06 [...] characteristic determined by the Dermatopathology Laboratory at [facility], directed by Dr. Rosana Gerard. These tests need not be, and therefore are not, approved by the [place] Food and Drug Administration. The tests are used for clinical purposes. Billing Codes Specimen Charges Stain Charges 07005 1 4:23 PM CDT DERMATOPATHOLOGY LABORATORY Embedded Images 4:23 PM CDT DERMATOPATHOLOGY LABORATORY Pathology/Cytolo gy TISSUE SPECIMEN FROM SKIN / Unknown 10/07/2024 1:24 PM CDT 10/09/2024 6:06 AM CDT us Michelle Silver MD LAB - PATHOLOGY/CYTOLOGY OR DERABLES Final Result DERMATOPATHOLOGY LABORATORY [facility] - Department of Dermatology [address] [place] [address], [facility] [phone] documented in this encounter Visit Diagnoses Not on filedocumented in this encounter Care Teams Landscape Painter Relationship Specialty Start Date End Date Deshawn Talbert MD [address] [place] [address] PCP - General 12/31/18 documented as of this encounter
[2025-03-29 13:34] VITALS: BP 147/82; PULSE 71; RESP 20; TEMP 36; O2SAT 97; BMI 29.9
--- NOTE | 2025-03-29 13:44 | WPDANESEPPF ---
Anes - Initial Pre Proc Eval Procedure: Operation Date: 03/29/25 14:30 Proposed Procedures p EGD & Diagnostic Colonoscopy - Todd Magana MD Date/Time: 03/29/25 13:44 Surgeon: Todd Magana MD Pre Op Diagnosis: Esophageal obstruction, Dysphagia,colitis Patient Data Age: 64 Gender: M Height: 1.93 m Weight: 111.6 kg Last Vital Signs Temp 96.8 F L 03/29/25 13:34 Pulse 71 03/29/25 13:34 Resp 20 03/29/25 13:34 BP 147/82 H 03/29/25 13:34 Pulse Ox 97 03/29/25 13:34 O2 Del Method Room Air 03/29/25 13:34 Allergies Allergy/AdvReac Type Severity Reaction Status Date / Time No Known Allergies Allergy Verified 03/29/25 13:33 Home Medications ?Medication ?Instructions ?Recorded ?Confirmed ?Type bupropion HCl 150 mg 24 hr tablet, 150 mg PO DAILY 08/30/22 03/29/25 History extended release lisinopril 20 mg tablet 20 mg PO DAILY #90 tabs 09/13/23 03/29/25 Rx sertraline 50 mg tablet 50 mg PO DAILY 02/13/24 03/29/25 History rosuvastatin 20 mg tablet 20 mg PO DAILY #90 tabs 03/30/24 03/29/25 Rx meloxicam 15 mg tablet 15 mg PO DAILY #90 tabs 05/08/24 03/29/25 Rx hydrochlorothiazide 25 mg tablet 25 mg PO DAILY #90 tabs 05/12/24 03/29/25 Rx Patient hx anesthesia problems: none Family hx anesthesia problems: none Results Review: All pre-operative results and documents have been reviewed as part of the pre-operative evaluation. [facility] Past Medical History Medical History Arthritis of both elbows Family History Family History Mother Patient's mother is in good health Sibling Patient's brother is in good health Father Family history of malignant neoplasm, Onset Age: 49 Patient's father is , Onset Age: 49 Social History Social History Smoking status: Never smoker Alcohol intake: former Alcohol use details: starting drinking hard liquor age 12, quit age 22 , beer only till age 25 none since 2021 Substance use: never Substance use type: does not use Lack of Transportation: No Lack of Food: Never True Current Housing: I Have Housing Concerned About Future Housing: No Difficulty Paying Gas/Electric Bills: No Difficulty Paying for Meds: No Currently Unemployed: No Education: Bachelor's Degree Difficulty w/ Childcare or Family Care: No Living arrangements: with family Occupation/Education: occupation 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 Gender identity (if verbalized by the patient): Male Sexual Orientation (if Verbalized by the Patient): Straight or Heterosexual Spiritual care concerns: No Anes - Eval Final PreProcedure Day of Procedure 03/29/25 13:44 Patient weight: overweight Lungs: normal air movement Airway: Mallampati scale class II Neurological: alert and oriented Last oral intake: >/= 8 hours ASA classification: III Emergent: no Anesthetic plan: proceed Anesthesia type and monitoring: general GIVS and standard monitoring Results Review: All pre-operative results and documents have been reviewed as part of the pre-operative evaluation. HTN, hyperlipidemia, ADRIANO on CPAP, pt active w golfing, no cp or sob. Informed Consent: The patient's anesthetic plan and its attendant risks and benefits were discussed with the patient/family/POA. Questions were solicited and answers provided to the satisfaction of the patient/family/POA.
[2025-03-29] MEDS: LACTATED RINGERS 1,000 ML 150 ML IV CONT (13:54)
--- NOTE | 2025-03-29 14:07 | PM.HPGS ---
History of Present Illness History of Present Illness Consent: Risks, benefits, and alternatives have been discussed and questions answered. Patient agrees to proceed with procedure. Chief complaint: Esophageal obstruction, Dysphagia,colitis Narrative: Sreedhar Raymundo is a 64 year old male with dysphagia, he had lissette and had egd with dilatation in the past, also chronic diarrhea- probably 1-2 solid BM in a month- with last colonoscopy 2022. Review of Systems Review of Systems: All systems reviewed & are unremarkable except as noted in HPI and below PMFSH Past Medical History Medical History Arthritis of both elbows Family History Family History Mother Patient's mother is in good health Sibling Patient's brother is in good health Father Family history of malignant neoplasm, Onset Age: 49 Patient's father is , Onset Age: 49 Social History Social History Smoking status: Never smoker Alcohol intake: former Alcohol use details: starting drinking hard liquor age 12, quit age 22 , beer only till age 25 none since 2021 Substance use: never Substance use type: does not use Lack of Transportation: No Lack of Food: Never True Current Housing: I Have Housing Concerned About Future Housing: No Difficulty Paying Gas/Electric Bills: No Difficulty Paying for Meds: No Currently Unemployed: No Education: Bachelor's Degree Difficulty w/ Childcare or Family Care: No Living arrangements: with family Occupation/Education: occupation 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 Gender identity (if verbalized by the patient): Male Sexual Orientation (if Verbalized by the Patient): Straight or Heterosexual Spiritual care concerns: No Meds Home Medications and Allergies Home Medications ?Medication ?Instructions ?Recorded ?Confirmed ?Type bupropion HCl 150 mg 24 hr tablet, 150 mg PO DAILY 08/30/22 03/29/25 History extended release lisinopril 20 mg tablet 20 mg PO DAILY #90 tabs 09/13/23 03/29/25 Rx sertraline 50 mg tablet 50 mg PO DAILY 02/13/24 03/29/25 History rosuvastatin 20 mg tablet 20 mg PO DAILY #90 tabs 03/30/24 03/29/25 Rx meloxicam 15 mg tablet 15 mg PO DAILY #90 tabs 05/08/24 03/29/25 Rx hydrochlorothiazide 25 mg tablet 25 mg PO DAILY #90 tabs 05/12/24 03/29/25 Rx Allergies Allergy/AdvReac Type Severity Reaction Status Date / Time No Known Allergies Allergy Verified 03/29/25 13:33 Vital Signs Vital Signs - 24 hr 03/29/25 13:34 Temperature 96.8 F L Pulse Rate 71 Respiratory Rate 20 Blood Pressure 147/82 H Pulse Oximetry 97 Oxygen Delivery Room Air Exam Const: General: comfortable and no acute distress HENMT: Face/Nose/Sinus: Normal nares present Eyes: General: appearance normal, both eyes and all related structures Resp: Auscultation: clear to auscultation bilaterally Cardio: Rate: regular rate Rhythm: regular rhythm GI: Inspection: non-distended GI Palp: Yes Soft to palpation Skin: General skin exam: normal color Extrem: General: normal to inspection Psych: Mental Status: mental status grossly normal Assessment and Plan Assessment and plan (1) Chronic diarrhea: Code(s): K52.9 - Noninfective gastroenteritis and colitis, unspecified Status: Acute Assessment and Plan: colonoscopy (2) Dysphagia: Qualifiers: Dysphagia type: esophageal phase Qualified Code(s): R13.19 - Other dysphagia Code(s): R13.10 - Dysphagia, unspecified Status: Acute Assessment and Plan: egd
--- NOTE | 2025-03-29 14:21 | S_PTH ---
PATIENT: Sreedhar Raymundo LOC: [facility]#:[id number] AGE/SX: 64/M ROOM: RE03/29/[address]: Todd Magana MD : 1960 BED: DIS: 03/29/2025 SPEC #: [id number] RECD: 03/30/25 07:40 STATUS: MARTINA REYvrose #: [id number] THERESA: 03/29/25 14:[address]: Todd Magana DEPT: [facility] Surgical RECD BY: Kristie An ENTERED: 03/30/25 07:42 SP TYPE: Surgical OTHR DR: Arabella Patterson, INVESTMENT STRATEGIST Tissues: A - Gastric Biopsy B - Gastric Biopsy C - Esophageal Biopsy D - Colon Biopsy Procedures: Hematoxylin and Eosin Stain Gross and Microscopic Level 4
--- NOTE | 2025-03-29 14:25 | SUR.OPER ---
EGD END TIME 1419 COLONOSCOPY START TIME 1427
[2025-03-29 14:33] VITALS: BP 96/53; PULSE 70; RESP 16; O2SAT 97
[2025-03-29 14:43] VITALS: BP 93/60; PULSE 72; RESP 18; O2SAT 97
[2025-03-29 14:52] VITALS: BP 112/62; PULSE 70; RESP 17; O2SAT 97
== END 2025-03-29 15:07 | disposition home or self-care (01) ==
PROVIDERS: PCP Registered Nurse; Referring Provider Nurse Practitioner Family; Visit Provider Internal Medicine Gastroenterology
PROC: 0DJ08ZZ Inspection of Upper Intestinal Tract, Via Natural or Artificial Opening Endoscopic (ICD-10-PCS; CPT 45378; principal; 2025-03-29 14:30)
DX: R19.7 Diarrhea, unspecified (principal); K57.30 Diverticulosis of large intestine without perforation or abscess without bleeding; K64.8 Other hemorrhoids; Z86.0100 Personal history of colon polyps, unspecified; K21.00 Gastro-esophageal reflux disease with esophagitis, without bleeding; K22.10 Ulcer of esophagus without bleeding; K22.2 Esophageal obstruction; K44.9 Diaphragmatic hernia without obstruction or gangrene
CPT/HCPCS: 45380; 43239; 43249; 88305; C1726; J2704; J7120